=== PATIENT | male | born 1965 | race Caucasian/White ===

== ENCOUNTER 2019-05-29 09:27 | Outpatient (RCR) | payer MEDICAID, SELFPAY | END 2019-05-29 23:59 | disposition home or self-care (01) | LOC: ANHAUDIO 09:27 | DX: Z46.1 Encounter for fitting and adjustment of hearing aid (principal) | CPT/HCPCS: V5264 ==

== ENCOUNTER 2023-01-20 09:47 | Emergency (ER) | payer OTHER, SELFPAY ==
[2023-01-20] VITALS (14 sets, daily range): BP systolic 107–125; BP diastolic 74–89; PULSE 70–81; RESP 10–20; TEMP 36.9; O2SAT 98–100
--- NOTE | ~2023-01-20 | XR_ITS ---
EXAMINATION: XR chest 1V portable DATE: 01/20/2023 12:03 INDICATION: Weakness. Low blood pressure. Recent fall. TECHNIQUE: frontal view of the chest was obtained. COMPARISON: None FINDINGS: The lungs are clear with no focal airspace opacities, pulmonary edema, pleural effusion or pneumothor ax. The cardiomediastinal silhouette is normal. Likely old healed proximal left humeral fracture. IMPRESSION: 1. No acute cardiopulmonary disease. Reviewed, dictated and finalized at location A.
--- NOTE | ~2023-01-20 | XR_ITS ---
EXAMINATION: XR elbow LT min 3V DATE: 01/20/2023 12:48 INDICATION: Left elbow pain post fall TECHNIQUE: Anteroposterior, two oblique and lateral views of the left elbow were obtained. COMPARISON: None. FINDINGS: Alignment is normal. No fracture or joint effusion. Joint spaces are normal. Suggestion of at least s mall left elbow joint effusion with displacement of the anterior but not the posterior fat pad. Soft tissue swelling posterior to the elbow. IMPRESSION: 1. Small left elbow joint effusion without evident osseous abnormality. Reviewed, dictated and finalized at location A.
--- NOTE | ~2023-01-20 | CT_ITS ---
EXAMINATION: CT lumbar spine wo con DATE: 01/20/2023 12:35 INDICATION: Low back pain and weakness post recent falls TECHNIQUE: Computed tomography (CT) of the lumbar spine was performed without intravenous contrast. A utomated exposure control and iterative reconstruction technique were employed. The dose-length produ ct was 922.11 mGy-cm. COMPARISON: None FINDINGS: Alignment is normal. There is a burst fracture of L2 with depression of the superior endplate resulti ng in one fourth central vertebral body height loss and with 2 mm retropulsion along the cephalad asp ect of the posterior wall. There is no linear lucency or sclerosis, discontiguous or sharply angulate d cortex or surrounding soft tissue swelling to suggest acute injury. And minimal likely physiologic anterior wedging at T12. Mild disc height loss at L3-L4 and L4-L5. There are disc bulges resulting in mild central canal stenosis at L4-L5 and L5-S1. Additional mild central canal stenosis resulting fro m the retropulsion of the cephalad aspect of L2. Additional mild disc bulges without central canal st enosis at L2-L3 and L3-L4. Multilevel bilateral mild facet osteoarthritis throughout the lumbar and v isualized lower thoracic spine. This contributes to mild neural foraminal stenosis on the left at L1- L2 and bilaterally at the more caudal lumbar levels. Prominent distention of the incompletely visuali zed bladder which extends cephalad to at least the L4 level. Paravertebral soft tissues are unremarka ble. IMPRESSION: 1. Mild lumbar spondylosis with chronic appearing L2 burst fracture. No evident acute osseous abnorma lity. 2. Prominent distention of the incompletely visualized bladder. Reviewed, dictated and finalized at location A. IMPRESSION: 1. Mild lumbar spondylosis with chronic appearing L2 burst fracture. No evident acute osseous abnormality. 2. Prominent distention of the incompletely visualized bladder.
--- NOTE | ~2023-01-20 | CT_ITS ---
EXAMINATION: CT brain wo con DATE: 01/20/2023 12:35 INDICATION: Fall presenting with generalized weakness TECHNIQUE: Computed tomography (CT) of the head was performed without intravenous contrast. Sagittal and coronal reconstructions were performed. The mA was adjusted according to patient size. Iterative reconstruction technique was employed. The dose-length product was 681.00 mGy-cm. COMPARISON: None FINDINGS: No fracture. No acute intracranial hemorrhage, acute infarction or abnormal extra axial fluid collect ion. There is minimal scattered white matter hypoattenuation consistent with chronic small vessel isc hemic disease. Symmetric prominence of the sulci consistent with mild age-appropriate diffuse cerebra l volume loss. Ventricles are normal and symmetric. No mass/mass effect. The orbits, paranasal sinuse s and mastoid air cells are normal. IMPRESSION: 1. No fracture or acute intracranial process. 2. Age-related changes including mild diffuse volume loss and minimal scattered white matter hypoatte nuation consistent with chronic small vessel ischemic disease. Reviewed, dictated and finalized at location A. IMPRESSION: 1. No fracture or acute intracranial process. 2. Age-related changes including mild diffuse volume loss and minimal scattered white matter hypoattenuation consistent with chronic small vessel ischemic dis ease.
--- NOTE | 2023-01-20 10:00 | ECG_ITS ---
Measurements Intervals Harris Rate: 79 P: 63 VT: 151 QRS: 31 QRSD: 86 T: 62 QT: 370 QTc: 426 Interpretive Statements SINUS RHYTHM NORMAL ECG NO PREVIOUS ECG AVAILABLE FOR COMPARISON Electronically Signed On 01-20-2023 11:49:22 CDT by Hermiol Bahena D.O.
[2023-01-20 10:33] LABS: Basophils Percent Auto 0.2 % (0.2-1.2); Eosinophils Percent Auto 0.4 % (0-4.4); Hematocrit 35.8 % (42.0-52.0); Hemoglobin 11.9 g/dL (14.0-18.0); Immature Granulocyte Absolute 0.02 K/mm3 (0.00-0.031); Immature Granulocyte Percent A 0.2 % (0-0.5); Lymphocytes Absolute Auto 1.37 K/mm3 (0.9-3.2); Lymphocytes Percent Auto 16.9 % (18.3-44.2); Mean Corpuscular HGB Conc 33.2 g/dl (32-36); Mean Corpuscular Hemoglobin 32.8 pg (26-34); Mean Corpuscular Volume 98.6 fl (80-100); Mean Platelet Volume 9.5 fl (7.4-10.4); Monocytes Percent Auto 11.9 % (2.6-8.5); Neutrophils Absolute Auto 5.7 K/mm3 (1.3-6.7); Neutrophils Percent Auto 70.4 % (45.5-73.1); Platelet Count Result 166 k/mm3 (150-375); Red Blood Count 3.63 M/mm3 (4.6-6.20); Red Cell Distribution Width 14.3 % (11.5-14.5); White Blood Count 8.1 K/mm3 (4.5-10.0)
[2023-01-20 10:46] LABS: Alanine Aminotransferase 23 U/L (6-50); Albumin Level 3.8 g/dL (3.5-5.1); Alkaline Phosphatase 56 U/L (38-126); Anion Gap 1 mmol/L (8-16); Aspartate Amino Transferase 29 U/L (17-59); Bilirubin,Total 0.4 mg/dL (0.2-1.3); Blood Urea Nitrogen 16 mg/dL (9-20); Calcium 9.3 mg/dL (8.4-10.2); Carbon Dioxide 33 mmol/L (22-30); Chloride 95 mmol/L (98-107); Estimated CRCL calculation 82 ml/min; Estimated Glomerular Filt Rate > 60; Glucose 71 mg/dL (65-110); Potassium 4.6 mmol/L (3.4-5.0); Sodium 129 mmol/L (137-145)
--- NOTE | 2023-01-20 11:24 | PC.NURSE ---
pt has a fluid restriction of 1500ml a day
--- NOTE | 2023-01-20 11:58 | ED.WEAKNESS ---
HPI - Weakness General Chief complaint: Weakness Stated complaint: WEAKNESS, LOW BP Time Seen by Provider: 01/20/23 11:57 Source: patient and EMS Mode of arrival: EMS Limitations: no limitations History of Present Illness HPI Narrative: 57 years old white male came from shelter by ambulance complaining of left elbow, lower back and occipital pain after a fall at 2 AM. Patient denied loss of consciousness, fever, chills, nausea, vomiting, abdominal pain or urinary symptoms. Currently his main complaint is left elbow pain. Related Data Allergies Allergy/AdvReac Type Severity Reaction Status Date / Time Penicillins Allergy Unknown Verified 04/11/16 16:09 Review of Systems Review of Systems: All systems reviewed & are unremarkable except as noted in HPI and below Exam Narrative: General appearance: Well-developed, well-nourished Skin: Normal color Head: Normocephalic, nontraumatic Eyes: Clear conjunctiva ENT: Oropharynx normal, ears normal, nose normal Neck: Supple, nontender Chest and respiratory: Airway patent, no respiratory distress, no accessory muscle use Heart: Regular rate/rhythm Abdomen: Soft, nontender, no organomegaly, quiet bowel sounds Vascular: Normal peripheral pulses, normal capillary refill. Musculoskeletal: Diffuse tenderness left elbow, swelling, limited range of motion, diffuse tenderness across lumbar area, no bruises or swelling or rash Neurologic: Alert and oriented to his name and age only Course Vital Signs Vital signs: Vital Signs Temperature 36.9 C 01/20/23 09:51 Pulse Rate 81 01/20/23 09:51 Respiratory Rate 16 01/20/23 09:51 Blood Pressure 108/74 01/20/23 09:51 Pulse Oximetry 99 01/20/23 09:51 Temperature 36.9 C 01/20/23 09:51 Pulse Rate 71 01/20/23 14:02 Respiratory Rate 16 01/20/23 14:02 Blood Pressure 125/89 01/20/23 14:02 Pulse Oximetry 100 01/20/23 14:02 MDM - Weakness Lab Data 01/20/23 10:29 01/20/23 10:29 Labs: Lab Results 01/20/23 01/20/23 01/20/23 Range/Units 10:29 13:00 13:05 WBC 8.1 (4.5-10.0) K/mm3 RBC 3.63 L (4.6-6.20) M/mm3 Hgb 11.9 L (14.0-18.0) g/dL Hct 35.8 L (42.0-52.0) % MCV 98.6 (80-100) fl MCH 32.8 (26-34) pg MCHC 33.2 (32-36) g/dl RDW 14.3 (11.5-14.5) % Plt Count 166 (150-375) k/mm3 MPV 9.5 (7.4-10.4) fl Immature Gran % (Auto) 0.2 (0-0.5) % Neut % (Auto) 70.4 (45.5-73.1) % Lymph % (Auto) 16.9 L (18.3-44.2) % Atkinson % (Auto) 11.9 H (2.6-8.5) % Eos % (Auto) 0.4 (0-4.4) % Baso % (Auto) 0.2 (0.2-1.2) % Lymph # (Auto) 1.37 (0.9-3.2) K/mm3 Atkinson # (Auto) 1.0 H (0.1-0.6) K/mm3 Eos # (Auto) 0.0 (0-0.3) K/mm3 Baso # (Auto) 0.0 (0.0-0.1) K/mm3 Abs Immat Gran (auto) 0.02 (0.00-0.031) K/mm3 Absolute Neuts (auto) 5.7 (1.3-6.7) K/mm3 Absolute Nucleated RBC 0.0 (0.0-0.012) K/mm3 Nucleated RBC % 0.0 (0.0-0.2) % PT 14.0 (11.1-14.7) Seconds INR 1.0 APTT 29.5 (22.3-36.8) SECONDS Sodium 129 L (137-145) mmol/L Potassium 4.6 (3.4-5.0) mmol/L Chloride 95 L (98-107) mmol/L Carbon Dioxide 33 H (22-30) mmol/L Anion Gap 1 L (8-16) mmol/L BUN 16 (9-20) mg/dL Creatinine 0.90 (0.7-1.3) mg/dL Estim Creat Clear Calc 82 ml/min Estimated GFR > 60 (59 - ) Glucose 71 (65-110) mg/dL Calcium 9.3 (8.4-10.2) mg/dL Total Bilirubin 0.4 (0.2-1.3) mg/dL AST 29 (17-59) U/L ALT 23 (6-50) U/L Alkaline Phosphatase 56 (38-126) U/L C-Reactive Protein < 0.5 (<1.0) mg/dL Total Protein 6.0 L (6.3-8.2) g/dL Albumin 3.8 (3.5-5.1
[2023-01-20 12:22] LABS: CRP < 0.5 mg/dL (<1.0)
[2023-01-20 13:14] LABS: Appearance Urine Clear (Clear); Bilirubin Urine Negative (Negative); Blood Urine Negative (Negative); Color Urine Yellow (Yellow); Glucose Urine UA Negative (Negative); Ketones Urine Negative (Negative); Leukocyte Esterase Ur Negative LEU/UL (Negative); Nitrate Urine Negative (Negative); Protein Urine Negative (Negative); Specific Grav Ur 1.013 (1.001-1.035)
[2023-01-20 13:18] LABS: Partial Thromboplastin Time 29.5 SECONDS (22.3-36.8)
[2023-01-20 13:34] LABS: Add Urine Microscopic? NO
[2023-01-20] MEDS: ACETAMINOPHEN 500 MG TABLET 1000 MG PO (13:36)
== END 2023-01-20 14:42 | disposition home or self-care (01) ==
PROVIDERS: Emergency Provider Emergency Medicine
DX: S50.02XA Contusion of left elbow, initial encounter (principal); E87.1 Hypo-osmolality and hyponatremia; M47.816 Spondylosis without myelopathy or radiculopathy, lumbar region; R93.41 Abnormal radiologic findings on diagnostic imaging of renal pelvis, ureter, or bladder; W19.XXXA Unspecified fall, initial encounter
CPT/HCPCS: 36415; 70450; 71045; 72131; 73080; 80053; 81003; 85025; 85610; 85730; 86140; 93005; 99284; A9270

== ENCOUNTER 2023-05-26 13:15 | Emergency (ER) | payer OTHER, SELFPAY ==
--- NOTE | ~2023-05-26 | XR_ITS ---
EXAMINATION: XR knee LT 3V DATE: 05/26/2023 13:39 INDICATION: Anterior left knee pain. Fall. TECHNIQUE: 3 views of left knee were obtained. COMPARISON: None. FINDINGS: Bone alignment is normal. No fracture. There is mild osteoarthritis of lateral compartment characterized by tiny osteophytes. There is a small knee joint effusion. IMPRESSION: 1. Mild left knee osteoarthritis. 2. Small left knee joint effusion. Reviewed, dictated and finalized at location A. WIRER
[2023-05-26 13:38] VITALS: BP 109/75; PULSE 93; RESP 16; TEMP 36.1; O2SAT 100
[2023-05-26 13:42] VITALS: BP 109/75; PULSE 93; RESP 16; TEMP 36.1; O2SAT 100
--- NOTE | 2023-05-26 13:51 | ED.LOWEXIN ---
HPI - Extremity Injury (Lower) General Chief Complaint: Extremity Injury, Lower Stated Complaint: Knee pain Time Seen by Provider: 05/26/23 13:43 Source: patient and other (prison staff) Mode of arrival: wheelchair Limitations: no limitations History of Present Illness HPI Narrative: Patient is present today complaining of left knee pain. He tripped last night at his prison, injuring his knee. It has been very painful for him to ambulate since that time. Currently rates his pain 5/10. He has an abrasion to the knee and is up-to-date on his tetanus vaccine. Denies numbness or tingling. Related Data Home Medications Medication Instructions Recorded Confirmed benztropine 0.5 mg tablet 0.5 mg PO TID 05/26/23 05/26/23 bimatoprost 0.01 % eye drops 1 drp EACH EYE HS 05/26/23 05/26/23 (Lumigan) calcium carbonate 600 mg calcium 600 mg PO BID 05/26/23 05/26/23 (1,500 mg) tablet cholecalciferol (vitamin D3) 25 25 mcg PO DAILY 05/26/23 05/26/23 mcg (1,000 unit) tablet divalproex 500 mg tablet,extended 500 mg PO BID 05/26/23 05/26/23 release 24 hr folic acid 1 mg tablet 1 mg PO DAILY 05/26/23 05/26/23 hydroxyzine pamoate 50 mg capsule 50 mg PO TID 05/26/23 05/26/23 loratadine 10 mg tablet 10 mg PO DAILY 05/26/23 05/26/23 lurasidone 120 mg tablet 120 mg PO DAILY 05/26/23 05/26/23 sodium chloride 1,000 mg soluble 1,000 mg PO BID 05/26/23 05/26/23 tablet venlafaxine 150 mg 150 mg PO DAILY 05/26/23 05/26/23 capsule,extended release 24 hr Allergies Allergy/AdvReac Type Severity Reaction Status Date / Time Penicillins Allergy Unknown Unknown Verified 05/26/23 13:36 Review of Systems Review of Systems: CONSTITUTIONAL: Denies body aches, fever, chills, or sweats. EYES: Denies visual changes, redness, or discharge. ENT: Denies rhinorrhea, congestion, sore throat, or otalgia. CARDIOVASCULAR: Denies chest pain, palpitations, or edema. RESPIRATORY: Denies cough or dyspnea. GASTROINTESTINAL: Denies abdominal pain, nausea, vomiting, or diarrhea. GENITOURINARY: Denies dysuria or hematuria. SKIN: Denies rash, itching, or wounds. MUSCULOSKELETAL: Denies back pain, or myalgia.+ knee pain NEUROLOGIC: Denies headache, numbness, tingling, or weakness. PSYCH: Denies depression or anxiety. [facility] Past Medical History Medical History (Updated 05/26/23 @ 14:03 by Chelo Gibbs, SENIOR BUSINESS PROCESS ANALYST, ) Autism spectrum disorder Bipolar 1 disorder Comments At time of signature, I have reviewed and agree with nursing past medical, surgical, social and family history unless otherwise noted. Please see nursing chart for further information. There is no relevant family history pertinent to the presenting complaint Exam Narrative: GENERAL: Well-appearing, well-nourished, and in no acute distress. HEAD: Normocephalic, atraumatic. EYES: EOMI. No redness or drainage. Conjunctivae normal. ENT: Mucous membranes pink and moist. NECK: Normal AROM. CHEST: No respiratory distress. EXTREMITIES: Left knee:Mild tenderness medially, otherwise nontender. No edema noted. No abnormal movement of patella. No tenderness to the patellar tendon. Small superficial abrasion just below the patella. No pain with passive range of motion. Distal sensation intact. Capillary refill normal. SKIN: Warm, dry, no rash. Capillary refill normal. Normal skin turgor. NEURO: No focal deficits. Alert and oriented x3. Gait steady. PSYCH: Normal affect. No signs of depression or anxiety. Course Course Level of Care: Express Care Visit Vital Signs Vital signs: Vital Signs Temperature 97 F L 05/26/23 13:38 Pulse Rate 93 05/26/23 13:38 Respiratory Rate 16 05/26/23 13:38 Blood Pressure 109/75 05/26/23 13:38 Pulse Oximetry 100 05/26/23 13:38 Temperature 97 F L 05/26/23 13:42 Pulse Rate 93 05/26/23 13:42 Respiratory Rate 16 05/26/23 13:42 Blood Pressure 109/75 05/26/23 13:42 Pulse Oximetry 100 05/26/23 13:
== END 2023-05-26 14:11 | disposition home or self-care (01) ==
PROVIDERS: Emergency Provider Nurse Practitioner
DX: S80.02XA Contusion of left knee, initial encounter (principal); S80.212A Abrasion, left knee, initial encounter; W01.0XXA Fall on same level from slipping, tripping and stumbling without subsequent striking against object, initial encounter; F84.0 Autistic disorder; F31.9 Bipolar disorder, unspecified
CPT/HCPCS: 73562; 99213; G0463

== ENCOUNTER 2023-06-20 10:22 | Emergency (ER) | payer OTHER, SELFPAY ==
--- NOTE | ~2023-06-20 | US_ITS ---
EXAMINATION: US venous doppler [facility] DATE: 06/20/2023 11:30 INDICATION: Left lower limb pain TECHNIQUE: Grayscale ultrasound images without and with compression and Doppler ultrasound images of the left lower extremity veins were obtained. COMPARISON: None. FINDINGS: The visualized portions of left common femoral vein, profunda (deep) femoral vein, femoral vein, popl iteal vein, peroneal veins, posterior tibial veins, gastrocnemius vein and greater saphenous vein out flow are patent. IMPRESSION: 1. No deep venous thrombosis in the left lower limb. Reviewed, dictated and finalized at location A. TENA[employer]PER[employer]OR
[2023-06-20 10:39] VITALS: BP 121/75; PULSE 92; RESP 18; TEMP 36.4; O2SAT 100
--- NOTE | 2023-06-20 11:57 | ED.GENADULT ---
HPI - General Adult General Chief complaint: Extremity Problem,Nontraumatic Stated complaint: LEFT CALF PAIN Time Seen by Provider: 06/20/23 11:13 Source: patient Mode of arrival: EMS Limitations: no limitations History of Present Illness HPI narrative: This is a 57-year-old male with bipolar 1, ASD who presents to the ED with chief complaint of left knee pain x3 weeks and worse starting last night. He is here with caregiver from the [place] [facility]. They report he had a fall 3 weeks ago and has been dealing with the pain ever since. Room what changed last night is that he was unable to bear weight or walk due to the pain. Patient states range of motion and weight-bearing worsen the pain. Denies any new injuries or falls. Denies any fevers, chills, nausea, vomiting, skin changes. Related Data Home Medications Medication Instructions Recorded Confirmed benztropine 0.5 mg tablet 0.5 mg PO TID 05/26/23 05/26/23 bimatoprost 0.01 % eye drops 1 drp EACH EYE HS 05/26/23 05/26/23 (Lumigan) calcium carbonate 600 mg calcium 600 mg PO BID 05/26/23 05/26/23 (1,500 mg) tablet cholecalciferol (vitamin D3) 25 25 mcg PO DAILY 05/26/23 05/26/23 mcg (1,000 unit) tablet divalproex 500 mg tablet,extended 500 mg PO BID 05/26/23 05/26/23 release 24 hr folic acid 1 mg tablet 1 mg PO DAILY 05/26/23 05/26/23 hydroxyzine pamoate 50 mg capsule 50 mg PO TID 05/26/23 05/26/23 loratadine 10 mg tablet 10 mg PO DAILY 05/26/23 05/26/23 lurasidone 120 mg tablet 120 mg PO DAILY 05/26/23 05/26/23 sodium chloride 1,000 mg soluble 1,000 mg PO BID 05/26/23 05/26/23 tablet venlafaxine 150 mg 150 mg PO DAILY 05/26/23 05/26/23 capsule,extended release 24 hr Allergies Allergy/AdvReac Type Severity Reaction Status Date / Time Penicillins Allergy Unknown Unknown Verified 05/26/23 13:36 Review of Systems Review of Systems: All systems as dictated in [facility] Past Medical History Medical History (Updated 06/20/23 @ 12:06 by Giovanny Alcantara PA-C) Autism spectrum disorder Bipolar 1 disorder Exam Narrative: GENERAL: Well-appearing, well-nourished, and in no acute distress. HEAD: Normocephalic, atraumatic. EYES: PERRLA and EOMI. ENT: Nares clear, no rhinorrhea or epistaxis. Mucous membranes moist. Oropharynx without tonsillar hypertrophy exudate or other lesions. NECK: Supple. No adenopathy or masses. CHEST: No respiratory distress. Clear to auscultation. No wheezes rales or rhonchi HEART: Regular rate and rhythm. No murmur heard. Normal peripheral pulses. ABDOMEN: Soft, nontender, nondistended, normal active bowel sounds. MSK: LLE: Effusion to the left knee. No warmth, erythema. Mild tenderness about the knee joint. Decreased active range of motion due to pain. He is able to extend the knee. Neurovascularly intact distally. No bruising. RLE: Benign SKIN: Warm, dry, no rash. NEURO: Alert and oriented x3. No focal deficits. PSYCH: Normal mood and affect. Course Course Emergency Course: Patient was still having trouble bearing weight and caregiver stated that he cannot go back to the [place] [facility] as he would have to go upstairs. They do not do lift assists there. Vital Signs Vital signs: Vital Signs Temperature 97.6 F 06/20/23 10:39 Pulse Rate 92 06/20/23 10:39 Respiratory Rate 18 06/20/23 10:39 Blood Pressure 121/75 06/20/23 10:39 Pulse Oximetry 100 06/20/23 10:39 Oxygen Delivery Room Air 06/20/23 10:39 Temperature 98.2 F 06/20/23 16:37 Pulse Rate 87 06/20/23 16:37 Respiratory Rate 18 06/20/23 16:37 Blood Pressure 144/79 H 06/20/23 16:37 Pulse Oximetry 98 06/20/23 16:37 Oxygen Delivery Room Air 06/20/23 10:39 Medical Decision Making [facility] Narrative Medical decision making narrative: This is a 57-year-old male who presents to the ED with chief complaint of left knee and thigh pain for the past 3 weeks and worse last night. Vitals are normal. Exam shows left knee
[2023-06-20] MEDS: KETOROLAC 30 MG/ML VIAL (*BKC) IM (12:00)
--- NOTE | 2023-06-20 12:13 | PC.NURSE ---
Upon getting ready to dc patient, RN from [facility] where patient resides, called and stated that patient cannot come back to facility if he is unable to stand and ambulate ad qian. The facility is a non weight bearing facility. KINZA Germain, notified and call placed to care coordination for f/u.
[2023-06-20] MEDS: ACETAMINOPHEN 500 MG TABLET 1000 MG PO (15:50)
--- NOTE | 2023-06-20 16:12 | PCCCNOTE ---
CC called to ED for placement for pt. Pt lives in a senior care, had a fall a few weeks ago and hurt his knee. There is no fractures or acute findings other than arthritis. Pt is unable to bare weight, so placement has to be made for PT. He is unable to stay at the senior care unless he can care for himself and do his ADL's. Referrals [facility] to [facility], per pt choice. [facility] accepted pt, he will be transported there via his care givers vehicle. His RN will call report to [phone] and fax any discharge information to [phone].
[2023-06-20 16:37] VITALS: BP 144/79; PULSE 87; RESP 18; TEMP 36.8; O2SAT 98
--- NOTE | 2023-06-20 17:33 | PC.NURSE ---
Damaris nurse, from [facility] called for report at [phone].
== END 2023-06-20 16:41 | disposition home or self-care (01) ==
PROVIDERS: Emergency Provider Physician Assistant
DX: M25.462 Effusion, left knee (principal); M79.652 Pain in left thigh; F84.0 Autistic disorder; F31.9 Bipolar disorder, unspecified; W19.XXXA Unspecified fall, initial encounter
CPT/HCPCS: 93971; 96372; 99284; A9270; J1885

== ENCOUNTER 2024-11-26 10:57 | Inpatient (IN) | payer OTHER, SELFPAY ==
--- NOTE | ~2024-11-26 | CT_ITS ---
EXAMINATION: CT cervical spine wo con DATE: 11/26/2024 11:42 INDICATION: Fall with head injury TECHNIQUE: Computed tomography (CT) of the cervical spine was performed without intravenous contrast. Automated exposure control and iterative reconstruction technique were employed. The dose-length pro duct was 204.63 mGy-cm. COMPARISON: None FINDINGS: Alignment is normal. Mild osteoarthritis at the atlantoaxial articulation. Cervical vertebral body he ights are normal. There is chronic appearing mild anterior wedging with 20% anterior vertebral body h eight loss at T2. Mild disc height loss at C3-C4. No central canal stenosis. Multilevel mild cervical facet and uncovertebral osteoarthritis. No central canal or neural foraminal stenosis. Atherosclerot ic calcifications at the bilateral carotid bulbs. Cervical soft tissues are unremarkable. Mild emphys lacie and mild pleural parenchymal scarring at the bilateral apices. IMPRESSION: 1. Mild cervical spondylosis and chronic appearing mild T2 compression fracture. No acute osseous abn ormality. Reviewed, dictated and finalized at location A. IMPRESSION: 1. Mild cervical spondylosis and chronic appearing mild T2 compression fracture . No acute osseous abnormality.
--- NOTE | ~2024-11-26 | XR_ITS ---
XR surgery orthopedic Ordering provider: Tyron Hancock MD History: . LEFT HIP PINNING . Comparison: None. FINDINGS/impression: Postoperative changes with 3 screws seen in the left femoral neck. Fluoroscopy time is 1.18 minutes. Cumulative radiation dose is 15.48mGy. Reviewed, dictated and finalized at location A.
--- NOTE | ~2024-11-26 | XR_ITS ---
XR chest 1V Ordering provider: Hyun Mcgovern APRN History: 59 years Male with . fall . Comparison: January 20, 2023 FINDINGS: MEDIASTINUM: The cardiac silhouette is not enlarged. LUNGS: No infiltrates, effusions or pneumothorax. Underlying emphysematous changes. OTHER: No free air under the diaphragm. IMPRESSION: No acute cardiopulmonary pathology. Reviewed, dictated and finalized at location A.
--- NOTE | ~2024-11-26 | CT_ITS ---
CT brain wo con Ordering provider: Hyun Mcgovern APRN History: 59 years Male with . fall . Comparison: None. Technique: CT of the head without contrast. Radiation reduction technique utilized. The dose-length product was 1210.67 mGy-cm. FINDINGS: BRAIN PARENCHYMA AND CSF SPACES: Mild leukoaraiosis and diffuse cortical atrophy. Mild atheromatous d isease. No midline shift, mass effect or hemorrhage. The brain parenchyma and CSF spaces are otherwi se normal. Empty sella turcica. VISUALIZED PARANASAL SINUSES: Well aerated. MASTOIDS: Well aerated. BONES: The bones appear intact. SOFT TISSUES: Visualized nasopharynx is normal. Superficial soft tissues are normal. IMPRESSION: No acute intracranial findings. Reviewed, dictated and finalized at location A.
--- NOTE | ~2024-11-26 | XR_ITS ---
EXAMINATION: XR hip LT 2V w AP pelvis DATE: 11/26/2024 12:17 INDICATION: Left hip pain TECHNIQUE: Anteroposterior view of the pelvis and anteroposterior and cross-table lateral views of th e left hip were obtained. COMPARISON: None. FINDINGS: Nondisplaced transcervical fracture of the proximal left femur. Suggestion of some mild posterior imp action. No other fractures identified. Mild osteoarthritis at the bilateral sacroiliac joints. Bilate ral hip joint spaces appear relatively preserved. Mild lumbar spondylosis. IMPRESSION: 1. Nondisplaced transcervical fracture of the proximal left femur. Reviewed, dictated and finalized at location A.
--- OUTSIDE RECORDS SUMMARY | 2024-11-26 11:00 | XMS_ITS | Clinical Summary ---
Author Organization [facility] Address [address] [facility], [address] [phone] Phone Care Team Providers Care Realtime Captioner Name Role Phone Nicko Nance DO Unavailable [phone] Linda Auguste [employer], [employer] Unavailable Juanita Estrada [employer], [employer] Unavailable Rohit Watson Primary Care Provider Allergies Active Allergy Reactions Criticality Noted Date Comments Penicillins Unknown Medications divalproex (DEPAKOTE ER) 500 MG TABLET SR 24 HR Take 500 mg by mouth 2 times daily. 08/24/19 16 Active latanoprost (XALATAN) 0.005 % Solution Place 1 Drop in both eyes nightly. 08/14/19 16 Active risperiDONE (RISPERDAL) 4 MG Tablet Take 4 mg by mouth 2 times daily. 08/24/19 16 Active Venlafaxine HCl XR (EFFEXOR-XR) 150 MG TABLET SR 24 HR Take 150 mg by mouth daily. 08/24/19 16 Active loratadine (CLARITIN) 10 MG Tablet Take 1 Tab by mouth daily. 90 Tab 3 11/11/19 17 Active folic acid (FOLVITE) 1 MG Tablet Take 1 Tab by mouth daily. 30 Tab 5 12/23/19 17 Active hydrOXYzine (ATARAX) 50 MG Tablet Take 50 mg by mouth 3 times daily. Active Cholecalciferol (VITAMIN D3) 1000 UNIT Tablet Take 1,000 Units by mouth daily. Active benztropine (COGENTIN) 0.5 MG Tablet Take 0.5 mg by mouth 3 times daily. Active Oral Electrolytes (GNP Electrolyte Powder) PackIndications: Hyponatremia Take 1 Packet by mouth in the morning and at bedtime. 60 Each 3 01/13/20 23 Active sodium chloride 1 GM TabletIndication s:Hyponatremia Take 1 Tablet by mouth in the morning and at bedtime. 180 Tablet 1 03/11/20 23 Active Lumigan 0.01 % Solution 04/26/20 Active Calcium Carbonate 1500 (600 Ca) MG Tablet 04/02/20 23 Active docusate sodium (COLACE) 100 MG CapsuleIndicatio ns:Constipation, unspecified constipation type Take 1 Capsule by mouth 2 times daily. 180 Capsule 06/20/19 Active zoster vaccine recombinant adjuvanated (SHINGRIX) 50 MCG/0.5ML Recon SuspensionIndica tions:Encounter for immunization 0.5 mL by Intramuscular route once for 1 dose. 0.5 mL 11/02/19 25 025 Active Problems Problem Noted Date Diagnosed Date Chronic hyponatremia 03/31/2021 Vitamin D deficiency 09/25/2018 Vitamin B12 deficiency 09/25/2018 Depression 09/23/2017 Tobacco use disorder 02/17/2017 Chronic mental illness 09/23/2016 Seasonal allergies 09/23/2015 Asperger's disorder Bipolar disorder Resolved Problems Problem Noted Date Diagnosed Date Resolved Date Mixed hyperlipidemia 09/02/2015 018 Encounters Date Type Department Care Team Description 11/01/2024 10:30 AM CDT Office Visit [facility] - Primary Care - [place] [address] [place] [address] Rohit Watson, CONCHA Preventative health care (Adult) (Primary Dx); Chronic hyponatremia; Vitamin D deficiency; Current mild episode of major depressive disorder, unspecified whether recurrent (HCC); Bipolar affective disorder, remission status unspecified (HCC); Screening for prostate cancer; Encounter for immunization; Encounter for lipid screening for cardiovascular disease Discharge Disposition: Discharged to home or Selfcare 11/01/2024 Travel 10/29/2024 Telephone [facility] [address] [place] [phone] Rohit Watson, PAC Request for Records from Last 3 Months Immunizations Immunization Administration Dates Next Due COVID-19, Mrna, Lnp-s, Pf, 5 0 mcg/0.5 mL 04/18/2023 Covid-19, Mrna, Lnp-s, Bival ent, Moderna, 50 Mcg or 25 mcg dose 02/17/2022 Covid-19, Mrna, Lnp-s, PF, 1 00 mcg/0.5 mL Dose (Moderna) 07/16/2020,06/17/2020 Covid-19, Mrna, Lnp-s, Pf, 1 00 Mcg Or 50 Mcg Dose (MODERNA) 11/12/2021 Hepatitis B Vaccine 03/16/2004 Influenza Vaccine 02/02/2016,01/28/2015,02/13/20 13 Influenza Vaccine greater than 3 yrs 01/24/2020, 02/01/2019,01/14/2014 Influenza Vaccine, Quadrivalent, PF 01/15,02/03/2023,01/20/2022,02/08,02/04/2017 Influenza, Seasonal, Injecta ble, Undefined 02/05/2021 PUR PCV-13 09/23/2015 Pneumococcal Vaccine - 13 Valent 09/23/2015 Pneumococcal Vaccine Adult - 23 Valent 2 Pneumococcal conjugate PCV20 , polysaccharide TAV920 conjugate, adjuvant, PF 11/01/2024 TB Skin Test 08/04/2018, 7,07/18/2015,07/18,07/20/2013 TD VACCINE 01/14/2005 TDAP Vaccine 01/04/2017,11/06/2014 Zoster Vaccine Recombinant 07/20/2024 Family History Medical History Relation Name Comments Mental Disorder, Other Mother Diabetes Paternal Grandmother Relation Name Status Comments Mother Paternal Grandmother Social History Tobacco Use Types Packs/Day Years Used Date Smoking Tobacco: Every Day Cigarettes 1 20 Passive Smoke Exposure: Current Smokeless Tobacco: Never Tobacco Cessation:Ready to Q uit: No; Counseling Given: Yes Alcohol Use Standard Drinks/Week Comments No 0 (1 standard drink = 0.6 oz pur e alcohol) Sexually Active Control Partners Comments Never Sex and Gender Information Value Date Recorded Sex Assigned at Not on file Legal Sex Male 11:49 PM CDT Gender Identity Not on file Sexual Orientation Not on file Occupation Industry Job Start Date Job End Date disabled Not on file Not on file Not on file Last Filed Vital Signs Vital Sign Reading Time Taken Comments Blood Pressure 104/60 11/01/2024 10:14 AM CDT Pulse 62 11/01/2024 10:14 AM CDT Temperature 37.6 C (99.6 F) 11/01/2024 10:14 AM CDT Respiratory Rate 20 11/01/2024 10:14 AM CDT Oxygen Saturation 100% 11/01/2024 10:14 AM CDT Inhaled Oxygen Concentration - - Weight 79.8 kg (176 lb) 11/01/2024 10:14 AM CDT Height 175.3 cm (5' 9) 10/27/2023 11:47 AM CDT Body Mass Index 25.99 10/27/2023 11:47 AM CDT Plan of Treatment Upcoming Encounters Date Type Department Care Team (Late st Contact Info) Description 05/03/2025 11:00 AM FINANCE DIRECTOR Office Visit [facility] - Primary Care - [place] [address] [place] [address] Rohit Watson, PAC [address] [place] [address] Health Maintenance Due Date Last Done Comments Cologuard 2010 Immunochemical Fecal Occult Blood 2010 Zoster Immunization (2 of 2) 09/14/2024 07/20/2024 Lung Cancer Screening 11/23/2024 11/24/2023, 021 Influenza Immunization (#1) 01/14/202501/15, 02/03/2023, 01/20/2022, Additional history exists Colonoscopy 11/13/2025 11/14/2015 Colorectal Cancer Screening 11/13/2025 Td Immunization Every 10 Years (Adults With 1 Tdap) 01/04/2027 01/04/2017, 11/06/2014, 01/14/2005 Respiratory Syncytial Virus (RSV) Immunization (Adult) (1 - 1-dose 75+ series) 2040 Hepatitis B Immunization Discontinued 03/16/2004 PSA Discussion Completed 09/23/2020, 09/13, 07/21/2018, Additional history exists Hepatitis C Virus (HCV) Screening Completed 04/30/2022 SARS-COV-2 Immunization Discontinued 04/18/20 23, 02/17/2022, 11/12/2021, Additional history exists Pneumococcal Immunization (50+ years) Completed 11/01/2024, 09/23/2015, 09/23/2015, Additional history exists Pneumococcal Immunization Combined Discontinued 11/01/2024, 09/23/2015, 09/23/2015, Additional history exists Human Papillomavirus (HPV) Immunization Aged Out No longer eligible based on patient's age to complete this topic Meningococcal Immunization (ACWY) Aged Out No longer eligible based on patient's age to complete this topic Rotavirus Immunization Aged Out No lo nger eligible based on patient's age to complete this topic Procedures Procedure Name Priority Date/Time Associated Diagnosis Comments CT CHEST SCREENING WO Routine 11/24/2023 1:14 PM CDT Encounter for screening for lung cancer HEPATITIS C ANTIBODY Today 04/30/2022 9:37 AM FINANCE DIRECTOR Need for hepatitis C screening test PSA SCREEN Routine 09/23/2020 8:04 AM CDT Bipolar affective disorder, remission status unspecified (HCC) Screening for malignant neoplasm of prostate from Last 3 Months or Most Recently Relevant to Health Maintenance Results * CT CHEST SCREENING WO (11/24/2023 1:14 PM CDT) Anatomical Region Laterality Modality Chest N/A Computed Tomogra phy 11/25/2023 4:51 PM CDT Impressions 11/25/2023 4:54 PM CDT IMPRESSION: Ground-glass nodule in the left lower lobe has resolved. No new or suspicious pulmonary nodule. Lung-RADS category 1: Negative. Recommendation: Low dose Screening CT of chest in 12 months. Narrative 11/25/2023 4:54 PM CDT EXAM DESCRIPTION: CT CHEST SCREENING WO REASON FOR STUDY: Screening CT of the chest in a current smoker with a 82 pack year smoking history. Additional history: None. TECHNIQUE: Low dose CT scan of the chest was performed without intravenous contrast using helical scanning technique. The exam extends from the lung apices through the lung bases. Automatic exposure control was used as a dose optimization technique. NOTE: This study was performed for the specific purposes of lung cancer screening and is not an alternative to diagnostic chest CT. RADIATION DOSE: CT dose index volume (CTDIvol) = 3.62 mGy COMPARISON: CT chest 04/21/2021 FINDINGS: SMOKING RELATED LUNG DISEASE: Mild emphysema. LUNG NODULES: Previously seen ground-glass nodularity left lower lobe has resolved. No new suspicious pulmonary nodule. CORONARY ARTERY CALCIFICATION: Present OTHER: No focal consolidation, pleural effusion or pneumothorax. Normal-sized heart without pericardial effusion. Normal caliber of the great vessels. Atherosclerotic calcification of the aorta and coronary arteries. No pleural effusion. No thoracic lymphadenopathy. Visualized upper abdomen demonstrates no acute findings. No suspicious osseous findings. THIS IS AN ELECTRONICALLY VERIFIED FINAL REPORT 11/25/2023 4:51 PM - Electronically signed by Jordana Dutta M.D. FT: FT Report ID: [id number] Reading Location: [place] [address] Procedure Note Jordana Ramos MD - 11/25/2023 EXAM DESCRIPTION: CT CHEST SCREENING WO REASON FOR STUDY: Screening CT of the chest in a current smoker with a 82 pack year smoking history. Additional history: None. TECHNIQUE: Low dose CT scan of the chest was performed without intravenous contrast using helical scanning technique. The exam extends from the lung apices through the lung bases. Automatic exposure control was used as a dose optimization technique. NOTE: This study was performed for the specific purposes of lung cancer screening and is not an alternative to diagnostic chest CT. RADIATION DOSE: CT dose index volume (CTDIvol) = 3.62 mGy COMPARISON: CT chest 04/21/2021 FINDINGS: SMOKING RELATED LUNG DISEASE: Mild emphysema. LUNG NODULES: Previously seen ground-glass nodularity left lower lobe has resolved. No new suspicious pulmonary nodule. CORONARY ARTERY CALCIFICATION: Present OTHER: No focal consolidation, pleural effusion or pneumothorax. Normal-sized heart without pericardial effusion. Normal caliber of the great vessels. Atherosclerotic calcification of the aorta and coronary arteries. No pleural effusion. No thoracic lymphadenopathy. Visualized upper abdomen demonstrates no acute findings. No suspicious osseous findings. THIS IS AN ELECTRONICALLY VERIFIED FINAL REPORT 11/25/2023 4:51 PM - Electronically signed by Jordana Dutta M.D. FT: FT Report ID: [id number] Reading Location: [id number] IMPRESSION: Ground-glass nodule in the left lower lobe has resolved. No new or suspicious pulmonary nodule. Lung-RADS category 1: Negative. Recommendation: Low dose Screening CT of chest in 12 months. Rohit Watson [facility] IMG CT ORDERABLES Final Resu lt * HEPATITIS C ANTIBODY (04/30/2022 9:37 AM FINANCE DIRECTOR) hepatitis C antibody 0.07 <1 [facility] [id number] B 04/30/2022 11:21 PM FINANCE DIRECTOR [facility] Comment: Signal/Cutoff ratio < 0.79 is Nondetected Signal/Cutoff ratio 0.80-0.99 is Grayzone Signal/Cutoff ratio > 0.99 is Detected Supplemental assays are recommended if signal/cutoff ratio is >/=1.00. Signal/cutoff ratio result >/= 5.00 is 97% predictive of positivity for recombinant immunoblot assay (RIBA) and will be reported to the [place] Department of Public [facility] as required. Blood Venipuncture / Unknown 04/30/2022 9:37 AM FINANCE DIRECTOR 04/30/2022 9:37 AM FINANCE DIRECTOR Re Escobar MD CHEMISTRY ORDERABLES Final R esult [facility] [address] [place] [address], [place] * PSA SCREEN (09/23/2020 8:04 AM CDT) Pathologist [facility] PSA SCREEN, TOTAL 0.47 <=4.00 ng/mL 09/23/2020 2:01 PM CDT [facility] Blood Venipuncture / Unknown 09/23/2020 8:04 AM CDT 09/23/2020 8:04 AM CDT Narrative [facility] - 09/23/2020 2:01 PM CDT PSA NOTE: The PSA value should be used in conjunction with information available from clinical evaluation and other diagnostic procedures. us Linda Prieto MD CHEMISTRY ORDERABLES Final R esult [facility] [address] [place] [address] from Last 3 Months or Most Recently Relevant to Health Maintenance Insurance MEDICARE C MOLINA Care Teams Realtime Captioner Relationship Specialty Start Date End Date Rohit Watson, CONCHA [address] [facility] [place] [phone] PCP - General Physician Tag Marker 11/22/23 Nicko Nance DO Gastroenterology 11/21/15 Linda Auguste, PILOT, [employer] Nurse Practitioner Advanced Practice Nurse 11/21/15 Juanita Estrada, JEFF, [employer] Nurse Practitioner Advanced Practice Nurse 11/21/15
[2024-11-26 11:08] VITALS: BP 92/61; PULSE 88; RESP 18; TEMP 36.2; O2SAT 99
--- NOTE | 2024-11-26 11:26 | ED_ITS ---
HPI - General Adult General Chief complaint: Fall <Hyun Duvall September, FLIGHT HOSTESS - Last Filed: 11/26/24 15:54> Stated complaint: L hip pain, Fall <Hyun Duvall September, FLIGHT HOSTESS - Last Filed: 11/26/24 15:54> Time Seen by Provider: 11/26/24 11:08 <Hyun Duvall September, FLIGHT HOSTESS - Last Filed: 11/26/24 15:54> History of Present Illness HPI narrative: Santiago De La Cruz this is a 59-year-old male who lives in a nursing facility with past medical history of bipolar and ASD who presents today after a mechanical ground level fall striking the back of his head on the countertop then falling onto his left side. He was having severe pain to the left side of his body and could not get back up so EMS was called to bring him to the emergency department. Patient is alert and oriented x4 complains of pain to the left hip area. Staff that is with pt states he did not have LOC and that just prior to the fall he was doing a marching exercise. <Hyun Duvall September, - Last Filed: 11/26/24 15:54> Related Data Home medications: Home Medications ?Medication ?Instructions ?Recorded ?Confirmed ?Last Taken ?Type benztropine 0.5 mg tablet 0.5 mg PO TID 05/26/23 05/26/23 Unknown History bimatoprost 0.01 % eye drops 1 drp EACH EYE HS 05/26/23 05/26/23 Unknown History (Virgilio) calcium carbonate 600 mg PO BID 05/26/23 05/26/23 Unknown History cholecalciferol (vitamin D3) 25 25 mcg PO DAILY 05/26/23 05/26/23 Unknown History mcg (1,000 unit) tablet divalproex 500 mg tablet,extended 500 mg PO BID 05/26/23 05/26/23 Unknown History release 24 hr folic acid 1 mg tablet 1 mg PO DAILY 05/26/23 05/26/23 Unknown History hydroxyzine pamoate 50 mg capsule 50 mg PO TID 05/26/23 05/26/23 Unknown History loratadine 10 mg tablet 10 mg PO DAILY 05/26/23 05/26/23 Unknown History lurasidone 120 mg tablet 120 mg PO DAILY 05/26/23 05/26/23 Unknown History sodium chloride 1,000 mg soluble 1,000 mg PO BID 05/26/23 05/26/23 Unknown History tablet venlafaxine 150 mg 150 mg PO DAILY 05/26/23 05/26/23 Unknown History capsule,extended release 24 hr <Hyun Mcgovern APRN - Last Filed: 11/26/24 15:54> Allergies/adverse reactions: Allergies Allergy/AdvReac Type Severity Reaction Status Date / Time Penicillins Allergy Unknown Unknown Verified 05/26/23 13:36 <Hyun Mcgovren FLIGHT HOSTESS - Last Filed: 11/26/24 15:54> Review of Systems 2 Review of Systems: All systems reviewed & are unremarkable except as noted in HPI and below <Hyun Mcgovern FLIGHT HOSTESS - Last Filed: 11/26/24 15:54> PMFSH Past Medical History Medical History: Medical History Autism spectrum disorder Bipolar 1 disorder <Hyun Mcgovern FLIGHT HOSTESS - Last Filed: 11/26/24 15:54> Exam 2 Narrative: GENERAL: Well-appearing, well-nourished, and in no acute distress. HEAD: Normocephalic, atraumatic. EYES: PERRLA and EOMI. ENT: Nares clear, no rhinorrhea or epistaxis. Mucous membranes moist. Oropharynx without tonsillar hypertrophy exudate or other lesions. NECK: Supple. No adenopathy or masses. No carotid bruits or JVD CHEST: Clear to auscultation. No respiratory distress. No wheezes rales or rhonchi HEART: Regular rate and rhythm. No murmur heard. Normal peripheral pulses. ABDOMEN: Soft, nontender, nondistended, normal active bowel sounds. EXTREMITIES: Patient does not want his left hip touched, stating this is causing him a lot of pain, waiting for him to be transferred to the stretcher to evaluate his hip SKIN: Warm, dry, no rash. NEURO: No focal deficits. Alert and oriented x3. PSYCH: Normal mood and affect. <Hyun Mcgovern FLIGHT HOSTESS - Last Filed: 11/26/24 15:54> Course FREELANCE PROGRAMMER/APP DEVELOPER/PA Physician Supervision I agree with midlevel documentation; I performed the medical decision making component of this evaluation. <Meenu Erwin MD - Last Filed: 11/26/24 15:56> Vital Signs Vital signs: Vital Signs Temperature 97.2 F L 11/26/24 11:08 Pulse Rate 88 11/26/24 11:08 Respiratory Rate 18 11/26/24 11:08 Blood Pressure 92/61 L 11/26/24 11:08 Pulse Oximetry 99 11/26/24 11:08 Temperature 97.4 F L 11/26/24 13:17 Pulse Rate 72 11/26/24 13:17 Respiratory Rate 16 11/26/24 13:17 Blood Pressure 126/77 11/26/24 13:17 Pulse Oximetry 99 11/26/24 13:17 <Hyun Mcgovern, FLIGHT HOSTESS - Last Filed: 11/26/24 15:54> Vital Signs Temperature 97.2 F L 11/26/24 11:08 Pulse Rate 88 11/26/24 11:08 Respiratory Rate 18 11/26/24 11:08 Blood Pressure 92/61 L 11/26/24 11:08 Pulse Oximetry 99 11/26/24 11:08 Temperature 97.4 F L 11/26/24 13:17 Pulse Rate 72 11/26/24 13:17 Respiratory Rate 16 11/26/24 13:17 Blood Pressure 126/77 11/26/24 13:17 Pulse Oximetry 99 11/26/24 13:17 <Meenu Erwin MD - Last Filed: 11/26/24 15:56> Medical Decision Making MDM Narrative Medical decision making narrative: 59 y/o here after a mechanical ground level fall complaining of left hip pain He did hit his head without LOC, staff from [facility] here and states he also does have a hx of drinking too much water and messes up with his sodium so he is on water restrictions but has been known to sneak water. No obvious evidence of trauma to his head her face the fall no cervical thoracic or lumbar spinal tenderness with palpation complains of left upper leg hip pain, distal pulses present- strong pedal pulses Concern for : brain bleed/ left hip fracture / hyponatremia Plan to check imaging and labs and treat his pain. CBC-leukocytosis 11.8, hemodynamically stable CMP sodium 122, chloride 86, glucose 113 starting NS at 150/hr CT Brain- No acute intracranial findings. CT cspine- 1. Mild cervical spondylosis and chronic appearing mild T2 compression fracture. No acute osseous abnormality. XR chest -No acute cardiopulmonary pathology. XR Left hip/pelvis- 1. Nondisplaced transcervical fracture of the proximal left femur. Consulted with Orthopedic Dr. Hancock who accepts consult for admission to have repair of the proximal femur fracture. Consulted [facility] Hospitalist Tarsha for admission, who accepts admission and will also start NS at 150/hr to help with the hyponatremia <Hyun Mcgovern, FLIGHT HOSTESS - Last Filed: 11/26/24 15:54> Medical Records Medical records reviewed: Yes I reviewed the external patient's medical records. <Hyun Duvall September, FLIGHT HOSTESS - Last Filed: 11/26/24 15:54> Vital Signs Vital Signs: Vital Signs Temperature 97.2 F L 11/26/24 11:08 Pulse Rate 88 11/26/24 11:08 Respiratory Rate 18 11/26/24 11:08 Blood Pressure 92/61 L 11/26/24 11:08 Pulse Oximetry 99 11/26/24 11:08 Temperature 97.4 F L 11/26/24 13:17 Pulse Rate 72 11/26/24 13:17 Respiratory Rate 16 11/26/24 13:17 Blood Pressure 126/77 11/26/24 13:17 Pulse Oximetry 99 11/26/24 13:17 VItals reviewed by me <Hyun Duvall September, FLIGHT HOSTESS - Last Filed: 11/26/24 15:54> Vital Signs Temperature 97.2 F L 11/26/24 11:08 Pulse Rate 88 11/26/24 11:08 Respiratory Rate 18 11/26/24 11:08 Blood Pressure 92/61 L 11/26/24 11:08 Pulse Oximetry 99 11/26/24 11:08 Temperature 97.4 F L 11/26/24 13:17 Pulse Rate 72 11/26/24 13:17 Respiratory Rate 16 11/26/24 13:17 Blood Pressure 126/77 11/26/24 13:17 Pulse Oximetry 99 11/26/24 13:17 <Meenu Erwin MD - Last Filed: 11/26/24 15:56> Lab Data Lab results reviewed: Yes I reviewed the patient's lab results. <Hyun Mcgovern, FLIGHT HOSTESS - Last Filed: 11/26/24 15:54> Result diagrams: 11/26/24 12:30 07/14/25 12:30 <Hyun Mcgovern, FLIGHT HOSTESS - Last Filed: 11/26/24 15:54> Labs: Lab Results 11/26/24 Range/Units 12:30 WBC 11.8 H (4.5-10.0) K/mm3 RBC 3.96 L (4.6-6.20) M/mm3 Hgb 12.6 L (14.0-18.0) g/dL Hct 36.9 L (42.0-52.0) % MCV 93.2 (80-100) fl MCH 31.8 (26-34) pg MCHC 34.1 (32-36) g/dl RDW 13.5 (11.5-14.5) % Plt Count 206 (150-375) k/mm3 MPV 9.5 (7.4-10.4) fl Immature Gran % (Auto) 0.9 H (0-0.5) % Neut % (Auto) 75.8 H (45.5-73.1) % Lymph % (Auto) 15.6 L (18.3-44.2) % Vermilion % (Auto) 7.2 (2.6-8.5) % Eos % (Auto) 0.3 (0-4.4) % Baso % (Auto) 0.2 (0.2-1.2) % Lymph # (Auto) 1.85 (0.9-3.2) K/mm3 Vermilion # (Auto) 0.9 H (0.1-0.6) K/mm3 Eos # (Auto) 0.0 (0-0.3) K/mm3 Baso # (Auto) 0.0 (0.0-0.1) K/mm3 Abs Immat Gran (auto) 0.11 H (0.00-0.031) K/mm3 Absolute Neuts (auto) 9.0 H (1.3-6.7) K/mm3 Absolute Nucleated RBC 0.000 (0.0-0.012) K/mm3 Nucleated RBC % 0.0 (0.0-0.2) % Sodium 122 L (137-145) mmol/L Potassium 4.2 (3.4-5.0) mmol/L Chloride 86 L (98-107) mmol/L Carbon Dioxide 28 (22-30) mmol/L Anion Gap 8 (4-12) mmol/L BUN 16 (9-20) mg/dL Creatinine 1.08 (0.7-1.3) mg/dL Estim Creat Clear Calc Not Reportable Estimated GFR > 60 (59 - ) Glucose 113 H (65-110) mg/dL Calcium 9.4 (8.4-10.2) mg/dL Total Bilirubin 0.5 (0.2-1.3) mg/dL AST 42 (17-59) U/L ALT 23 (6-50) U/L Alkaline Phosphatase 53 (38-126) U/L Total Protein 6.8 (6.3-8.2) g/dL Albumin 4.1 (3.5-5.1) g/dL <Hyun Mcgovern, FLIGHT HOSTESS - Last Filed: 11/26/24 15:54> Lab Results 11/26/24 Range/Units 12:30 WBC 11.8 H (4.5-10.0) K/mm3 RBC 3.96 L (4.6-6.20) M/mm3 Hgb 12.6 L (14.0-18.0) g/dL Hct 36.9 L (42.0-52.0) % MCV 93.2 (80-100) fl MCH 31.8 (26-34) pg MCHC 34.1 (32-36) g/dl RDW 13.5 (11.5-14.5) % Plt Count 206 (150-375) k/mm3 MPV 9.5 (7.4-10.4) fl Immature Gran % (Auto) 0.9 H (0-0.5) % Neut % (Auto) 75.8 H (45.5-73.1) % Lymph % (Auto) 15.6 L (18.3-44.2) % Vermilion % (Auto) 7.2 (2.6-8.5) % Eos % (Auto) 0.3 (0-4.4) % Baso % (Auto) 0.2 (0.2-1.2) % Lymph # (Auto) 1.85 (0.9-3.2) K/mm3 Vermilion # (Auto) 0.9 H (0.1-0.6) K/mm3 Eos # (Auto) 0.0 (0-0.3) K/mm3 Baso # (Auto) 0.0 (0.0-0.1) K/mm3 Abs Immat Gran (auto) 0.11 H (0.00-0.031) K/mm3 Absolute Neuts (auto) 9.0 H (1.3-6.7) K/mm3 Absolute Nucleated RBC 0.000 (0.0-0.012) K/mm3 Nucleated RBC % 0.0 (0.0-0.2) % Sodium 122 L (137-145) mmol/L Potassium 4.2 (3.4-5.0) mmol/L Chloride 86 L (98-107) mmol/L Carbon Dioxide 28 (22-30) mmol/L Anion Gap 8 (4-12) mmol/L BUN 16 (9-20) mg/dL Creatinine 1.08 (0.7-1.3) mg/dL Estim Creat Clear Calc Not Reportable Estimated GFR > 60 (59 - ) Glucose 113 H (65-110) mg/dL Calcium 9.4 (8.4-10.2) mg/dL Total Bilirubin 0.5 (0.2-1.3) mg/dL AST 42 (17-59) U/L ALT 23 (6-50) U/L Alkaline Phosphatase 53 (38-126) U/L Total Protein 6.8 (6.3-8.2) g/dL Albumin 4.1 (3.5-5.1) g/dL <Meenu Erwin MD - Last Filed: 11/26/24 15:56> Imaging Data Radiologist's impression: Impressions Cervical Spine CT 11/26/24 11:48 IMPRESSION: 1. Mild cervical spondylosis and chronic appearing mild T2 compression fracture. No acute osseous abnormality. Head CT 11/26/24 11:54 IMPRESSION: No acute intracranial findings. Chest X-Ray 11/26/24 12:26 IMPRESSION: No acute cardiopulmonary pathology. Hip/Pelvis X-Ray 11/26/24 12:33 IMPRESSION: 1. Nondisplaced transcervical fracture of the proximal left femur. <Hyun Mcgovern APRN - Last Filed: 11/26/24 15:54> Discharge Plan Discharge Clinical Impression: Acute hyponatremia Fracture of femur, left, closed Qualifiers: Encounter type: initial encounter Femur location: midcervical Fracture alignment: nondisplaced Qualified Code(s): S72.035A - Nondisplaced midcervical fracture of left femur, initial encounter for closed fracture <Hyun Mcgovern APRN - Last Filed: 11/26/24 15:54> Patient Disposition: Still a Patient <Hyun Mcgovern APRN - Last Filed: 11/26/24 15:54> Condition: Stable <Hyun Mcgovern APRN - Last Filed: 11/26/24 15:54> Time of Disposition: 15:54 <Hyun Mcgovern APRN - Last Filed: 11/26/24 15:54> 15:54 <Meenu Erwin MD - Last Filed: 11/26/24 15:56>
--- OUTSIDE RECORDS SUMMARY | 2024-11-26 11:46 | XMS_ITS | Clinical Summary ---
Author Organization [facility] Address [address] [facility], [address] [address] Phone Care Team Providers Care Aerospace Quality Engineer Name Role Phone Nicok Nance DO Unavailable [phone] Linda Auguste CLINICAL NURSE MANAGER, TAPE LIBRARIAN Unavailable [phone] Juanita Estrada CLINICAL NURSE MANAGER, TAPE LIBRARIAN Unavailable Rohit Watson Primary Care Provider Allergies [...] Description 11/01/2024 10:30 AM CDT Office Visit [facility] - [facility] - [place] [address] [place] [address] Rohit Watson, CONCHA Preventative health care (Adult) (Primary Dx); Chronic hyponatremia; Vitamin D deficiency; Current mild episode of major depressive disorder, unspecified whether recurrent (HCC); Bipolar affective disorder, remission status unspecified (HCC); Screening for prostate cancer; Encounter for immunization; Encounter for lipid screening for cardiovascular disease Discharge Disposition: Discharged to home or Selfcare 11/01/2024 Travel 10/29/2024 Telephone [facility] [address] [place] [phone] Rohit Watson, PAC Request for Records from [...] Valent 2 Pneumococcal conjugate PCV20 , polysaccharide [id number] conjugate, adjuvant, PF 11/01/2024 TB Skin Test [...] st Contact Info) Description 05/03/2025 11:00 AM REGISTERED NURSE HH CASE MANAGER Office Visit [facility] - [facility] - [place] [address] [place] [address] Rohit Watson, PAC [address] [place] [address] Health Maintenance Due Date Last [...] HEPATITIS C ANTIBODY Today 04/30/2022 9:37 AM REGISTERED NURSE HH CASE MANAGER Need for hepatitis C screening test PSA [...] Jordana Dutta M.D. FT: FT Report ID: [id number] Reading Location: [place] [address] Procedure Note Jordana Ramos MD - 11/25/2023 [...] Jordana Dutta M.D. FT: FT Report ID: [id number] Reading Location: [id number] IMPRESSION: Ground-glass nodule in the left lower lobe has resolved. No new or suspicious pulmonary nodule. Lung-RADS category 1: Negative. Recommendation: Low dose Screening CT of chest in 12 months. Rohit Watson [facility] IMG CT ORDERABLES Final Resu lt * HEPATITIS C ANTIBODY (04/30/2022 9:37 AM REGISTERED NURSE HH CASE MANAGER) hepatitis C antibody 0.07 <1 S/CO [facility] ARCH [id number] 04/30/2022 11:21 PM REGISTERED NURSE HH CASE MANAGER [facility] Comment: Signal/Cutoff ratio < 0.79 is Nondetected Signal/Cutoff ratio 0.80-0.99 is Grayzone Signal/Cutoff ratio > 0.99 is Detected Supplemental assays are recommended if signal/cutoff ratio is >/=1.00. Signal/cutoff ratio result >/= 5.00 is 97% predictive of positivity for recombinant immunoblot assay (RIBA) and will be reported to the [place] Department of Public Health as required. Blood Venipuncture / Unknown 04/30/2022 9:37 AM REGISTERED NURSE HH CASE MANAGER 04/30/2022 9:37 AM REGISTERED NURSE HH CASE MANAGER Re Escobar MD CHEMISTRY ORDERABLES Final R esult [facility] [address] [place] [address], [place] * PSA SCREEN (09/23/2020 8:04 AM CDT) Pathologist [facility] PSA SCREEN, TOTAL 0.47 <=4.00 ng/mL 09/23/2020 2:01 PM CDT [facility] Blood Venipuncture / Unknown 09/23/2020 8:04 AM CDT 09/23/2020 8:04 AM CDT Narrative [facility] - 09/23/2020 2:01 PM CDT PSA NOTE: The PSA value should be used in conjunction with information available from clinical evaluation and other diagnostic procedures. us Linda Prieto MD CHEMISTRY ORDERABLES Final R esult [facility] [address] [place] [address] from Last 3 Months or Most Recently Relevant to Health Maintenance Insurance MEDICARE C MOLINA Care Teams Aerospace Quality Engineer Relationship Specialty Start Date End Date Rohit Watson, CONCHA [address] [place] [phone] PCP - General Physician E/M Engineer 11/22/23 Nicko Nance DO Gastroenterology 11/21/15 Linda Auguste, CLINICAL NURSE MANAGER, TAPE LIBRARIAN Nurse Practitioner Advanced Practice Nurse 11/21/15 Juanita Estrada, JEFF, TAPE LIBRARIAN Nurse Practitioner Advanced Practice Nurse 11/21/15
[2024-11-26 12:47] LABS: Hematocrit 36.9 % (42.0-52.0); Hemoglobin 12.6 g/dL (14.0-18.0); Immature Granulocyte Percent A 0.9 % (0-0.5); Lymphocytes Absolute Auto 1.85 K/mm3 (0.9-3.2); Mean Corpuscular HGB Conc 34.1 g/dl (32-36); Mean Corpuscular Hemoglobin 31.8 pg (26-34); Mean Corpuscular Volume 93.2 fl (80-100); Nucleated Red Blood Cells Absolute Auto 0.000 K/mm3 (0.0-0.012); Nucleated Red Blood Cells Perc 0.0 % (0.0-0.2); Platelet Count Result 206 k/mm3 (150-375); Red Blood Count 3.96 M/mm3 (4.6-6.20); White Blood Count 11.8 K/mm3 (4.5-10.0)
[2024-11-26 13:09] LABS: Alanine Aminotransferase 23 U/L (6-50); Albumin Level 4.1 g/dL (3.5-5.1); Alkaline Phosphatase 53 U/L (38-126); Anion Gap 8 mmol/L (4-12); Aspartate Amino Transferase 42 U/L (17-59); Bilirubin,Total 0.5 mg/dL (0.2-1.3); Blood Urea Nitrogen 16 mg/dL (9-20); Calcium 9.4 mg/dL (8.4-10.2); Carbon Dioxide 28 mmol/L (22-30); Chloride 86 mmol/L (98-107); Estimated Glomerular Filt Rate > 60; Glucose 113 mg/dL (65-110); Potassium 4.2 mmol/L (3.4-5.0); Sodium 122 mmol/L (137-145); Total Protein 6.8 g/dL (6.3-8.2)
[2024-11-26 13:17] VITALS: BP 126/77; PULSE 72; RESP 16; TEMP 36.3; O2SAT 99
[2024-11-26] MEDS: fentaNYL CITRATE INJ (*CRX) 100 MCG/2 ML VIAL 50 MCG IV PUSH ×2 (13:18→16:11)
--- NOTE | 2024-11-26 13:25 | PC.NURSE ---
circus supervisor at bedside-updated this RN that patient has Shingles on his Buttocks. Received the Shingles injection and developed rash a few days later. Hunter Mcgovern ARMY SENIOR OFFICER made aware
[2024-11-26] MEDS: SODIUM CHLORIDE 0.9% IV 1,000 ML 150 ML IV CONT (14:05)
--- NOTE | 2024-11-26 14:16 | PM.IMHP ---
H&P: HPI History of Present Illness Date/Time: 11/26/24 14:16 Chief Complaint: Fall, Hip Pain Narrative: 59 y/o M with PMH of Bipolar 1 and ASD presents here with a fall and left hip pain. The patient presents here from his long-term on 11/26 for further evaluation after a ground level fall and left hip pain. The patient was doing a walking/marching exercises when he had a fall. He fell backwards striking his head on the countertop and then fell onto his left side. He denies loss of consciousness. Now has pain to his left side and left hip. He was unable to ambulate post fall which prompted a call to EMS. He denies accompanying headache, neck pain, dizziness, chest pain, nausea, vomiting, or diarrhea. He is not currently on anticoagulation. Initial VS at presentation: 97.2F, HR 88, RR 18, 92/61, 99% on RA. ED workup showed: WBC 11/8, Hgb 12.6, Na 122 (previously 129 in 2022). C-spine CT showed mild cervical spondylosis and chronic T2 compression fracture, no acute osseous abnormality. Head CT showed no acute intracranial findings. CXR showed no acute cardiopulmonary pathology. Hip/pelvic XR showed a nondisplaced transcervical fracture of the proximal left femur. Review of Systems Review of Systems: All systems reviewed & are unremarkable except as noted in HPI and below PMFSH Past Medical History Medical History (Updated 11/26/24 @ 21:17 by Tarsha Velásquez APRN) Glaucoma Autism spectrum disorder Bipolar 1 disorder Surgical History Surgical History (Updated 11/26/24 @ 21:17 by Tarsha Velásquez APRN) History of appendectomy Family History Family History Mother Diabetes mellitus Social History Social History Smoking status: Current some day smoker Tobacco type: cigars Alcohol intake: never Substance use: never Do You Feel Safe in your Home?: Yes Lack of Transportation: No Lack of Food: Never True Current Housing: I Have Housing Concerned About Future Housing: Decline to Answer Difficulty Paying Gas/Electric Bills: Decline to Answer Difficulty Paying for Meds: Decline to Answer Currently Unemployed: Decline to Answer Education: High School Diploma/GED Difficulty w/ Childcare or Family Care: Decline to Answer Spiritual care concerns: No Meds Home Medications and Allergies Home Medications ?Medication ?Instructions ?Recorded ?Confirmed ?Type benztropine 0.5 mg tablet 0.5 mg PO TID 05/26/23 11/26/24 History bimatoprost 0.01 % eye drops 1 drp EACH EYE HS 05/26/23 11/26/24 History (Lumigan) calcium carbonate 600 mg PO BID 05/26/23 11/26/24 History cholecalciferol (vitamin D3) 25 25 mcg PO DAILY 05/26/23 11/26/24 History mcg (1,000 unit) tablet divalproex 500 mg tablet,extended 500 mg PO BID 05/26/23 11/26/24 History release 24 hr folic acid 1 mg tablet 1 mg PO DAILY 05/26/23 11/26/24 History hydroxyzine pamoate 50 mg capsule 50 mg PO TID 05/26/23 11/26/24 History loratadine 10 mg tablet 10 mg PO DAILY 05/26/23 11/26/24 History lurasidone 120 mg tablet 120 mg PO DAILY 05/26/23 11/26/24 History sodium chloride 1,000 mg soluble 1,000 mg PO BID 05/26/23 11/26/24 History tablet venlafaxine 150 mg 150 mg PO DAILY 05/26/23 11/26/24 History capsule,extended release 24 hr ibuprofen 600 mg tablet 600 mg PO Q6H PRN fever or pain 06/20/23 11/26/24 Rx #30 tabs acetaminophen 325 mg tablet 650 mg PO Q4H PRN fever or pain 11/26/24 11/26/24 History aluminum-mag hydroxide-simethicone 30 ml PO Q4H PRN indigestion 11/26/24 11/26/24 History 400 mg-400 mg-40 mg/5 mL oral susp (Mylanta Maximum Strength) bisacodyl 5 mg tablet 10 mg PO DAILY PRN constipation 11/26/24 11/26/24 History bismuth subsalicylate 262 mg/15 mL 524 mg PO QID PRN diarrhea 11/26/24 11/26/24 History oral suspension (Diarrhea Relief (bismuth subsalicylate)) diphenhydramine HCl 25 mg capsule 25 mg PO Q6H PRN allergy symptoms 11/26/24 11/26/24 History (Banophen) docusate sodium 100 mg capsule 100 mg PO 00,209911/26/24 11/26/24 History guaifenesin 100 mg/5 mL oral 200 mg PO Q4H PRN cough 11/26/24 11/26/24 History liquid (Chest Congestion Relief) ibuprofen 600 mg tablet (IBU) 600 mg PO Q6H PRN fever or pain 11/26/24 11/26/24 History risperidone 4 mg tablet 4 mg PO [id number],209911/26/24 11/26/24 History valacyclovir 1 gram tablet 1,000 mg PO Q12H 11/26/24 11/26/24 History Allergies Allergy/AdvReac Type Severity Reaction Status Date / Time Penicillins Allergy Unknown Unknown Verified 05/26/23 13:36 Vital Signs Vital Signs - 24 hr 11/26/24 11:08 11/26/24 13:17 Temperature 97.2 F L 97.4 F L Pulse Rate 88 72 Respiratory Rate 18 16 Blood Pressure 92/61 L 126/77 Pulse Oximetry 99 99 Exam Const: General: comfortable and no acute distress Other: , male, nontoxic appearance, disheveled HENMT: Face/Nose/Sinus: Normal nares present Mouth: Yes moist mucous membranes Eyes: General: appearance normal, both eyes and all related structures Sclera: sclerae normal Pupils: Equal, round and reactive pupils present EOM: EOMs intact bilaterally Resp: Effort & Inspection: normal respiratory effort Auscultation: clear to auscultation bilaterally Cardio: Rate: regular rate Rhythm: regular rhythm Other: S1-S2 present without murmur, rub, ectopy GI: Other: Abdomen soft, nondistended, nontender. Normoactive bowel sounds in all quadrants. Back/Spine/Pelvis: Other: Pain to the left hip/pelvis with palpation Skin: General skin exam: no rashes or lesions noted Wounds: no wounds Other: Mild pallor Neuro: Speech: normal speech Motor exam (neuro): 5/5 motor strength present throughout Sensory Exam: normal sensation Other: A&O x4 Extrem: General: normal to inspection Other: DP pulses 2+ bilaterally Psych: Mental Status: mental status grossly normal Affect: normal affect Other: Fair to poor insight and judgment, pleasant H&P: Results Labs Labs: Short CBC 11/26/24 Range/Units 12:30 WBC 11.8 H (4.5-10.0) K/mm3 Hgb 12.6 L (14.0-18.0) g/dL Hct 36.9 L (42.0-52.0) % Plt Count 206 (150-375) k/mm3 BMP 11/26/24 12:30 Sodium 122 L Potassium 4.2 Chloride 86 L Carbon Dioxide 28 BUN 16 Creatinine 1.08 Glucose 113 H Calcium 9.4 Liver Function 11/26/24 Range/Units 12:30 Total Bilirubin 0.5 (0.2-1.3) mg/dL AST 42 (17-59) U/L ALT 23 (6-50) U/L Alkaline Phosphatase 53 (38-126) U/L Albumin 4.1 (3.5-5.1) g/dL Assessment and Plan Assessment and plan (1) Fracture of femur, left, closed: Qualifiers: Encounter type: initial encounter Femur location: midcervical Fracture alignment: nondisplaced Qualified Code(s): S72.035A - Nondisplaced midcervical fracture of left femur, initial encounter for closed fracture Code(s): S72.92XA - Unspecified fracture of left femur, initial encounter for closed fracture Status: Acute Assessment and Plan: - GLF resulting in a nondisplaced transcervical fracture of the proximal left femur. - ortho consulted - analgesics prn - NPO at midnight - bed rest (2) Hyponatremia: Code(s): E87.1 - Hypo-osmolality and hyponatremia Status: Acute Assessment and Plan: - Na 122, previously 129 in 2022 - check serum osmolality, urine osmolality, urine sodium, protein to creatinine ratio, urine creatinine - bmp Q4H - reportedly chronic. on Risperidone, Lurasidone, Divalproex, Effexor, Benztropine which are likely contributing. patient also reportedly does not stick to his fluid restriction and will sneak water - trend renal function - NS at 150 mL/hr x1L - continue NaCl tabs 1G BID Plan Diet: regular, NPO at midnight. fluid restriction. GI Prophylaxis: NA DVT Prophylaxis: SCDs IV fluids: NS at 150 mL/hr x1L Lines/Tubes: peripheral IV Code Status: full code Quality VTE Prophylaxis VTE prophylaxis: mechanical ordered Hospitalist MIPS Advance Care Plan I have confirmed that the patient's Advanced Care Plan is present, code status is documented, or surrogate decision maker is listed in patient medical record.: Yes Medication Reconciliation I have utilized all available resources to obtain, update and review the patients current medications (includes all prescriptions, OTC, herbals, cannabis, and nutritional supplements).: Yes
[2024-11-26 16:02] VITALS: BP 140/85; PULSE 84; RESP 22; TEMP 36.2; O2SAT 98
--- NOTE | 2024-11-26 16:15 | PC.NURSE ---
This patient, Santiago De La Cruz, was admitted to 3 [facility] Surg Room 317-01. Patient/family oriented to hospital policies and general routines including ID bracelet, bed and alarms, visiting hours, pain management, procedures, bathroom and other care routines, personal items, smoking policy, room service/diet, and visiting hours. Information on how to activate the Rapid Response Team has been discussed. Patient/Family are encouraged to report perceived risks to care and to ask questions if they do not understand what they are told or what they should do.
--- NOTE | 2024-11-26 16:15 | PM.CNOR ---
Assessment and Plan Assessment and plan (1) Fracture of femur, left, closed: Qualifiers: Encounter type: initial encounter Femur location: midcervical Fracture alignment: nondisplaced Qualified Code(s): S72.035A - Nondisplaced midcervical fracture of left femur, initial encounter for closed fracture Code(s): S72.92XA - Unspecified fracture of left femur, initial encounter for closed fracture Status: Acute Plan Non-displaced femoral neck fracture with impaction. Risk of displacement. Recommend percutaneous pinning. We discussed the risks, benefits, and alternatives to surgery. Will use Synthes 7.3mm cannulated screws. Anticipate 4-6 weeks rehab with PWB using a walker. Proceed with percutaneous pinning of left hip femoral neck fracture. History of Present Illness HPI Consult date: 11/26/24 Chief complaint: Proximal Femur Fracture Narrative: Patient complains of acute left hip pain. Fell from standing height. Admitted through the emergency room for definitive management. No previous hip pain. Comfortable at rest. No numbness, tingling, or other associated symptoms. He lives in assisted living; has several steps to his room. Review of Systems Review of Systems: Denies loss of consciousness. All systems reviewed & are unremarkable except as noted in HPI and below PMFSH Past Medical History Medical History Autism spectrum disorder Bipolar 1 disorder Meds Home Medications and Allergies Home Medications ?Medication ?Instructions ?Recorded ?Confirmed ?Type benztropine 0.5 mg tablet 0.5 mg PO TID 05/26/23 05/26/23 History bimatoprost 0.01 % eye drops 1 drp EACH EYE HS 05/26/23 05/26/23 History (Lumigan) calcium carbonate 600 mg PO BID 05/26/23 05/26/23 History cholecalciferol (vitamin D3) 25 25 mcg PO DAILY 05/26/23 05/26/23 History mcg (1,000 unit) tablet divalproex 500 mg tablet,extended 500 mg PO BID 05/26/23 05/26/23 History release 24 hr folic acid 1 mg tablet 1 mg PO DAILY 05/26/23 05/26/23 History hydroxyzine pamoate 50 mg capsule 50 mg PO TID 05/26/23 05/26/23 History loratadine 10 mg tablet 10 mg PO DAILY 05/26/23 05/26/23 History lurasidone 120 mg tablet 120 mg PO DAILY 05/26/23 05/26/23 History sodium chloride 1,000 mg soluble 1,000 mg PO BID 05/26/23 05/26/23 History tablet venlafaxine 150 mg 150 mg PO DAILY 05/26/23 05/26/23 History capsule,extended release 24 hr acetaminophen 500 mg tablet 500 mg PO Q6H PRN fever or pain 06/20/23 Rx (Tylenol Extra Strength) #30 tabs ibuprofen 600 mg tablet 600 mg PO Q6H PRN fever or pain 06/20/23 Rx #30 tabs Allergies Allergy/AdvReac Type Severity Reaction Status Date / Time Penicillins Allergy Unknown Unknown Verified 05/26/23 13:36 Vital Signs Vital Signs - 24 hr 11/26/24 11:08 11/26/24 13:17 11/26/24 16:02 Temperature 36.2 C L 36.3 C L 36.2 C L Pulse Rate 88 72 84 Respiratory Rate 18 16 22 H Blood Pressure 92/61 L 126/77 140/85 Pulse Oximetry 99 99 98 Exam Narrative: Lower extremity shortened and externally rotated. Const: General: no acute distress Eyes: General: appearance normal, both eyes and all related structures Resp: Effort & Inspection: normal respiratory effort GI: GI Palp: Yes Soft to palpation and No Guarding due to palpation present (GI) Urinary Catheter: Urinary Catheter: patent and draining and urine clear Skin: General skin exam: no rashes or lesions noted Neuro: Speech: normal speech Other: Wiggles toes well. Capillary refill brisk. Distal light touch sensation intact. Dorsalis pedis pulse palpable. Extrem: Other: No edema. Psych: Mental Status: mental status grossly normal Results Labs 11/26/24 12:30 11/26/24 12:30 Labs: Abnormal lab results 11/26/24 Range/Units 12:30 WBC 11.8 H (4.5-10.0) K/mm3 RBC 3.96 L (4.6-6.20) M/mm3 Hgb 12.6 L (14.0-18.0) g/dL Hct 36.9 L (42.0-52.0) % Immature Gran % (Auto) 0.9 H (0-0.5) % Neut % (Auto) 75.8 H (45.5-73.1) % Lymph % (Auto) 15.6 L (18.3-44.2) % [place] # (Auto) 0.9 H (0.1-0.6) K/mm3 Abs Immat Gran (auto) 0.11 H (0.00-0.031) K/mm3 Absolute Neuts (auto) 9.0 H (1.3-6.7) K/mm3 Sodium 122 L (137-145) mmol/L Chloride 86 L (98-107) mmol/L Glucose 113 H (65-110) mg/dL H & H 07/14/25 Range/Units 12:30 Hgb 12.6 L (14.0-18.0) g/dL Hct 36.9 L (42.0-52.0) % All other labs normal. Quality VTE Prophylaxis VTE prophylaxis: mechanical ordered
[2024-11-26 16:24] VITALS: BMI 24.5
[2024-11-26 18:17] LABS: Anion Gap 6 mmol/L (4-12); Blood Urea Nitrogen 13 mg/dL (9-20); Calcium 7.5 mg/dL (8.4-10.2); Carbon Dioxide 24 mmol/L (22-30); Chloride 94 mmol/L (98-107); Estimated CRCL calculation 100 ml/min; Estimated Glomerular Filt Rate > 60; Glucose 103 mg/dL (65-110); Potassium 3.9 mmol/L (3.4-5.0); Sodium 124 mmol/L (137-145)
[2024-11-26] MEDS: HYDROcodone/acetaminophen (*CRX) 5-325 MG TABLET 1 TAB PO (19:29)
[2024-11-26 20:12] LABS: Total Protein Urine Random 16 mg/dL; Ur Ttl Prot Creatinine Ratio 0.16 mg/mg (0-0.20)
[2024-11-26 20:45] VITALS: BP 151/94; PULSE 79; RESP 20; TEMP 36.4; O2SAT 97
[2024-11-26 20:53] LABS: Anion Gap 6 mmol/L (4-12); Blood Urea Nitrogen 13 mg/dL (9-20); Calcium 8.7 mg/dL (8.4-10.2); Carbon Dioxide 26 mmol/L (22-30); Chloride 89 mmol/L (98-107); Estimated CRCL calculation 92 ml/min; Estimated Glomerular Filt Rate > 60; Glucose 162 mg/dL (65-110); Potassium 4.3 mmol/L (3.4-5.0); Sodium 121 mmol/L (137-145)
[2024-11-26] MEDS: DOCUSATE SODIUM 100 MG CAPSULE PO (22:20)
[2024-11-26] MEDS: LATANOPROST 0.005% OP SOLN 2.5 ML BTL 1 DROP EACH EYE (22:21)
[2024-11-26] MEDS: DIVALPROEX SODIUM ER 500 MG TAB.24H PO (22:21)
[2024-11-26] MEDS: BENZTROPINE MESYLATE 0.5 MG TABLET PO (22:21)
[2024-11-26] MEDS: diphenhydrAMINE HCl CAP 25 MG CAPSULE PO (22:40)
[2024-11-27 01:12] LABS: Anion Gap 6 mmol/L (4-12); Blood Urea Nitrogen 12 mg/dL (9-20); Calcium 8.6 mg/dL (8.4-10.2); Carbon Dioxide 26 mmol/L (22-30); Chloride 90 mmol/L (98-107); Estimated CRCL calculation 95 ml/min; Estimated Glomerular Filt Rate > 60; Glucose 127 mg/dL (65-110); Potassium 3.9 mmol/L (3.4-5.0); Sodium 122 mmol/L (137-145)
[2024-11-27 05:10] VITALS: BP 149/80; PULSE 76; RESP 18; TEMP 36.2; O2SAT 95
--- NOTE | 2024-11-27 07:24 | WPDHPUPDATE1 ---
History and Physical Update Update Date/Time: 11/27/24 07:24 History and Physical has been reviewed, including an updated exam of the patient. There are NO changes in the patient's condition. Risks, benefits, and alternatives have been discussed and questions answered. Patient agrees to proceed with procedure.
[2024-11-27] MEDS: VENLAFAXINE HCL XR 75 MG CAP.ER.24H 150 MG PO (09:12)
[2024-11-27] MEDS: FOLIC ACID 1 MG TABLET PO (09:13)
[2024-11-27] MEDS: CHOLECALCIFEROL (VITAMIN D3) 25 MCG (1,000 UNITS) TABLET PO (09:13)
[2024-11-27] MEDS: SODIUM CHLORIDE 1 GM TABLET PO ×2 (09:13→16:14)
[2024-11-27] MEDS: CALCIUM CARBONATE (OSCAL) 500 MG TABLET PO ×2 (09:13→16:14)
[2024-11-27] MEDS: DIVALPROEX SODIUM ER 500 MG TAB.24H PO ×2 (09:14→21:58)
[2024-11-27] MEDS: [UNRECOGNIZED DRUG - OTHER] PO (09:15)
[2024-11-27] MEDS: LURASIDONE 40 MG PO (09:15)
[2024-11-27] MEDS: BENZTROPINE MESYLATE 0.5 MG TABLET PO ×3 (09:16→22:04)
[2024-11-27] MEDS: HYDROcodone/acetaminophen (*CRX) 5-325 MG TABLET 1 TAB PO ×2 (09:27→16:13)
[2024-11-27] MEDS: diphenhydrAMINE HCl CAP 25 MG CAPSULE PO (09:28)
[2024-11-27 11:18] LABS: Anion Gap 4 mmol/L (4-12); Blood Urea Nitrogen 10 mg/dL (9-20); Calcium 8.6 mg/dL (8.4-10.2); Carbon Dioxide 27 mmol/L (22-30); Chloride 93 mmol/L (98-107); Estimated CRCL calculation 103 ml/min; Estimated Glomerular Filt Rate > 60; Glucose 117 mg/dL (65-110); Potassium 4.3 mmol/L (3.4-5.0); Sodium 124 mmol/L (137-145)
--- NOTE | 2024-11-27 11:54 | P.PNIM_ITS ---
Progress Note: A&P Assessment and Plan (1) Fracture of femur, left, closed: Qualifiers: Encounter type: initial encounter Femur location: midcervical Fracture alignment: nondisplaced Qualified Code(s): S72.035A - Nondisplaced midcervical fracture of left femur, initial encounter for closed fracture Code(s): S72.92XA - Unspecified fracture of left femur, initial encounter for closed fracture Status: Acute Assessment and Plan: - GLF resulting in a nondisplaced transcervical fracture of the proximal left femur. - ortho consulted - analgesics prn - NPO at midnight - bed rest Currently on hold due to hyponatremia (2) Hyponatremia: Code(s): E87.1 - Hypo-osmolality and hyponatremia Status: Acute Assessment and Plan: - Na 122, previously 129 in 2022 - check serum osmolality, urine osmolality, urine sodium 81, protein to creatinine ratio 0.16, urine creatinine 1 O2 - bmp Q4H - reportedly chronic. on Risperidone, Lurasidone, Divalproex, Effexor, Benztropine which are likely contributing. patient also reportedly does not stick to his fluid restriction and will sneak water - trend renal function - NS at 150 mL/hr x1L received 11/26/2024 2:00 p.m. with worsening of sodium level indicating possibly SIADH. - continue NaCl tabs 1 gm BID Recheck sodium this afternoon. May need to add Lasix along with salt tablet. Nephrology consult Will check thyroid function and cortisol level random Plan Diet: regular, fluid restriction GI Prophylaxis: NA DVT Prophylaxis: SCDs IV fluids: NS at 150 mL/hr x1L Lines/Tubes: peripheral IV Code Status: full code Subjective Date/time seen: 11/27/24 11:54 Interval history: Patient was plan for left hip surgery today however postponed due to hyponatremia. Patient reports soreness in left hip. Denies any chest pain or shortness of breath. Review of Systems Review of Systems: All systems reviewed & are unremarkable except as noted in HPI and below Exam Narrative: GENERAL: Well-appearing, well-nourished, and in no acute distress. HEAD: Normocephalic, atraumatic. EYES: PERRLA and EOMI. ENT: Nares clear, no rhinorrhea or epistaxis. Mucous membranes moist. NECK: Supple. No adenopathy or masses. No carotid bruits or JVD CHEST: Clear to auscultation. No respiratory distress. No wheezes rales or rhonchi HEART: Regular rate and rhythm. No murmur heard. Normal peripheral pulses. ABDOMEN: Soft, nontender, nondistended, normal active bowel sounds. EXTREMITIES: Patient does not want his left hip touched, stating this is causing him a lot of pain, no bruise noted. SKIN: Warm, dry, no rash. NEURO: No focal deficits. Alert and oriented x3. PSYCH: Normal mood and affect. Objective Data Vital Signs Vital Signs: Vital Signs - 24 hr 11/26/24 13:17 11/26/24 16:02 11/26/24 16:45 Temperature 97.4 F L 97.2 F L Pulse Rate 72 84 Respiratory Rate 16 22 H Blood Pressure 126/77 140/85 Pulse Oximetry 99 98 Oxygen Delivery Room Air 11/26/24 20:45 11/26/24 22:21 11/27/24 05:10 Temperature 97.5 F L 97.2 F L Pulse Rate 79 76 Respiratory Rate 20 18 Blood Pressure 151/94 H 149/80 H Pulse Oximetry 97 95 Oxygen Delivery Room Air Intake/Output Intake/Output: Intake & Output 11/24/24 11/25/24 11/26/24 11/27/24 23:59 23:59 23:59 23:59 Intake Total 260 340 Output Total 650 Balance 260 -310 Meds/Results Medications: Active Medications Generic Name Dose Route Start Last Admin Trade Name Freq PRN Reason Stop Dose Admin Acetaminophen 650 mg 11/26/24 14:45 Acetaminophen 325 Mg Tablet PO Q6H PRN Mild Pain (1-3) or Fever Hydrocodone Bitart/Acetaminophen 1 tab 11/26/24 14:45 11/27/24 09:27 Hydrocodone/Acetaminophen (*Crx) 5-325 Mg Tablet PO 1 tab Q6H PRN Administration Pain Rated 4-6 Al Hydrox/Mg Hydrox/Simethicone 30 ml 11/26/24 21:26 Mag Hydrox/Al Hydrox/Simeth 30 Ml Udc PO Q4H PRN Indigestion Benztropine Mesylate 0.5 mg 11/26/24 21:25 11/27/24 09:16 Benztropine Mesylate 0.5 Mg Tablet PO 0.5 mg 0700,1730,2100 [facility] Administration Bisacodyl 10 mg 11/26/24 21:18 Bisacodyl 5 Mg Tablet Ec PO DAILY PRN constipation Bismuth Subsalicylate 524 mg 11/26/24 21:30 Bismuth Subsalicylate 262 Mg Chewable Tablet PO QID PRN diarrhea Calcium Carbonate 500 mg 11/27/24 09:00 11/27/24 09:13 Calcium Carbonate (Oscal) 500 Mg Tablet PO 500 mg BID DIANE Administration Diphenhydramine HCl 25 mg 11/26/24 21:18 11/27/24 09:28 Diphenhydramine Hcl Cap 25 Mg Capsule PO 25 mg Q6H PRN Administration allergy symptoms Divalproex Sodium 500 mg 11/26/24 21:25 11/27/24 09:14 Divalproex Sodium Er 500 Mg Tab.24h PO 500 mg Q12HR [facility] Administration Docusate Sodium 100 mg 11/26/24 21:25 11/27/24 09:16 Docusate Sodium 100 Mg Capsule PO Not Given 699,2099 [facility] Fentanyl Citrate 25 mcg 11/26/24 14:45 Fentanyl Citrate Inj (*Crx) 100 Mcg/2 Ml Vial IV PUSH Q4H PRN Pain Rated 7-10 Folic Acid 1 mg 11/27/24 09:00 11/27/24 09:13 Folic Acid 1 Mg Tablet PO 1 mg DAILY [facility] Administration Guaifenesin 200 mg 11/26/24 21:18 Guaifenesin 200 Mg/10 Ml Udc PO Q4H PRN cough Hydroxyzine Pamoate 50 mg 11/27/24 09:00 11/27/24 09:13 Hydroxyzine Pamoate 25 Mg Capsule PO 50 mg TID [facility] Administration Lactated Ringer's 1,000 mls @ 30 mls/hr 11/27/24 07:25 Lr - Lactated Ringers Iv IV CONT .Q24H [facility] Latanoprost 1 drop 11/26/24 21:30 11/26/24 22:21 Latanoprost 0.005% Op Soln 2.5 Ml Btl EACH EYE 1 drop HS [facility] Administration Nonformulary Drug 0 mg 11/27/24 09:00 11/27/24 09:15 Lurasidone 40 Mg PO 12/27/24 08:59 120 mg Tablet DAILY DIANE Administration Risperidone 4 mg 11/26/24 21:30 11/27/24 09:14 Risperidone 1 Mg Tablet PO 4 mg 0700,2100 DIANE Administration Sodium Chloride 1 gm 11/27/24 09:00 11/27/24 09:13 Sodium Chloride 1 Gm Tablet PO 1 gm BID DIANE Administration Valacyclovir HCl 1,000 mg 11/26/24 21:20 11/26/24 22:20 Valacyclovir Hcl 500 Mg Tablet PO 1,000 mg Q12HR DIANE Administration Venlafaxine HCl 150 mg 11/27/24 07:00 11/27/24 09:12 Venlafaxine Hcl Xr 75 Mg Cap.Er.24h PO 150 mg DAILY@0700 DIANE Administration Vitamin D 25 mcg 11/27/24 09:00 11/27/24 09:13 Cholecalciferol (Vitamin D3) 25 Mcg (1,000 Units) Tablet PO 25 mcg DAILY DIANE Administration Radiology Results: ITS Impressions Cervical Spine CT 11/26/24 11:48 IMPRESSION: 1. Mild cervical spondylosis and chronic appearing mild T2 compression fracture. No acute osseous abnormality. Head CT 11/26/24 11:54 IMPRESSION: No acute intracranial findings. Chest X-Ray 11/26/24 12:26 IMPRESSION: No acute cardiopulmonary pathology. Hip/Pelvis X-Ray 11/26/24 12:33 IMPRESSION: 1. Nondisplaced transcervical fracture of the proximal left femur. Labs Labs: Laboratory Results - last 24 hr 11/26/24 11/26/24 11/26/24 12:30 17:55 19:42 WBC 11.8 H RBC 3.96 L Hgb 12.6 L Hct 36.9 L MCV 93.2 MCH 31.8 MCHC 34.1 RDW 13.5 Plt Count 206 MPV 9.5 Immature Gran % (Auto) 0.9 H Neut % (Auto) 75.8 H Lymph % (Auto) 15.6 L [place] % (Auto) 7.2 Eos % (Auto) 0.3 Baso % (Auto) 0.2 Lymph # (Auto) 1.85 [place] # (Auto) 0.9 H Eos # (Auto) 0.0 Baso # (Auto) 0.0 Abs Immat Gran (auto) 0.11 H Absolute Neuts (auto) 9.0 H Absolute Nucleated RBC 0.000 Nucleated RBC % 0.0 Sodium 122 L 124 L Potassium 4.2 3.9 Chloride 86 L 94 L Carbon Dioxide 28 24 Anion Gap 8 6 BUN 16 13 Creatinine 1.08 0.76 Estim Creat Clear Calc Not Reportable 100 Estimated GFR > 60 > 60 Glucose 113 H 103 Calcium 9.4 7.5 L Total Bilirubin 0.5 AST 42 ALT 23 Alkaline Phosphatase 53 Total Protein 6.8 Albumin 4.1 U Random Total Protein Ur Random Sodium Urine Creatinine 102.7 Protein/Creat Ratio 2 11/26/24 11/26/24 11/27/24 19:45 20:36 00:48 WBC RBC Hgb Hct MCV MCH MCHC RDW Plt Count MPV Immature Gran % (Auto) Neut % (Auto) Lymph % (Auto) [place] % (Auto) Eos % (Auto) Baso % (Auto) Lymph # (Auto) [place] # (Auto) Eos # (Auto) Baso # (Auto) Abs Immat Gran (auto) Absolute Neuts (auto) Absolute Nucleated RBC Nucleated RBC % Sodium 121 L 122 L Potassium 4.3 3.9 Chloride 89 L 90 L Carbon Dioxide 26 26 Anion Gap 6 6 BUN 13 12 Creatinine 0.83 0.80 Estim Creat Clear Calc 92 95 Estimated GFR > 60 > 60 Glucose 162 H 127 H Calcium 8.7 8.6 Total Bilirubin AST ALT Alkaline Phosphatase Total Protein Albumin U Random Total Protein 16 Ur Random Sodium 81 Urine Creatinine 102.2 Protein/Creat Ratio 2 0.16 11/27/24 10:44 WBC RBC Hgb Hct MCV MCH MCHC RDW Plt Count MPV Immature Gran % (Auto) Neut % (Auto) Lymph % (Auto) [place] % (Auto) Eos % (Auto) Baso % (Auto) Lymph # (Auto) [place] # (Auto) Eos # (Auto) Baso # (Auto) Abs Immat Gran (auto) Absolute Neuts (auto) Absolute Nucleated RBC Nucleated RBC % Sodium 124 L Potassium 4.3 Chloride 93 L Carbon Dioxide 27 Anion Gap 4 BUN 10 Creatinine 0.73 Estim Creat Clear Calc 103 Estimated GFR > 60 Glucose 117 H Calcium 8.6 Total Bilirubin AST ALT Alkaline Phosphatase Total Protein Albumin U Random Total Protein Ur Random Sodium Urine Creatinine Protein/Creat Ratio 2
[2024-11-27 13:01] LABS: Thyroid Stimulating Hormone Reflex 1.400 uIU/mL (0.465-4.68)
[2024-11-27 14:00] VITALS: BP 114/77; PULSE 78; RESP 18; TEMP 36.3; O2SAT 96
[2024-11-27 16:24] LABS: Sodium 127 mmol/L (137-145)
[2024-11-27 20:00] VITALS: PULSE 78; RESP 16; O2SAT 94
[2024-11-27 21:28] VITALS: BP 123/71; PULSE 78; RESP 16; TEMP 36.3; O2SAT 94
[2024-11-27] MEDS: DOCUSATE SODIUM 100 MG CAPSULE PO (21:57)
[2024-11-27] MEDS: LATANOPROST 0.005% OP SOLN 2.5 ML BTL 1 DROP EACH EYE (22:01)
[2024-11-27 23:04] LABS: Sodium 126 mmol/L (137-145)
[2024-11-28 01:09] LABS: Sodium 126 mmol/L (137-145)
[2024-11-28] MEDS: HYDROcodone/acetaminophen (*CRX) 5-325 MG TABLET 1 TAB PO ×3 (04:08→22:43)
[2024-11-28 05:56] LABS: Hematocrit 34.5 % (42.0-52.0); Hemoglobin 12.0 g/dL (14.0-18.0); Immature Granulocyte Percent A 0.3 % (0-0.5); Lymphocytes Absolute Auto 1.46 K/mm3 (0.9-3.2); Mean Corpuscular HGB Conc 34.8 g/dl (32-36); Mean Corpuscular Hemoglobin 32.5 pg (26-34); Mean Corpuscular Volume 93.5 fl (80-100); Nucleated Red Blood Cells Absolute Auto 0.000 K/mm3 (0.0-0.012); Nucleated Red Blood Cells Perc 0.0 % (0.0-0.2); Platelet Count Result 166 k/mm3 (150-375); Red Blood Count 3.69 M/mm3 (4.6-6.20); White Blood Count 10.8 K/mm3 (4.5-10.0)
[2024-11-28 06:00] VITALS: BP 143/77; PULSE 82; RESP 16; TEMP 36.3; O2SAT 94
[2024-11-28] MEDS: DOCUSATE SODIUM 100 MG CAPSULE PO ×2 (06:00→20:59)
[2024-11-28] MEDS: VENLAFAXINE HCL XR 75 MG CAP.ER.24H 150 MG PO (06:00)
[2024-11-28] MEDS: BENZTROPINE MESYLATE 0.5 MG TABLET PO ×3 (06:00→20:59)
[2024-11-28 06:47] LABS: Alanine Aminotransferase 15 U/L (6-50); Albumin Level 3.5 g/dL (3.5-5.1); Alkaline Phosphatase 55 U/L (38-126); Anion Gap 5 mmol/L (4-12); Aspartate Amino Transferase 27 U/L (17-59); Bilirubin,Total 0.3 mg/dL (0.2-1.3); Blood Urea Nitrogen 10 mg/dL (9-20); Calcium 9.2 mg/dL (8.4-10.2); Carbon Dioxide 28 mmol/L (22-30); Chloride 94 mmol/L (98-107); Estimated CRCL calculation 97 ml/min; Estimated Glomerular Filt Rate > 60; Glucose 107 mg/dL (65-110); Magnesium 1.7 mg/dL (1.6-2.3); Potassium 4.0 mmol/L (3.4-5.0); Sodium 127 mmol/L (137-145); Total Protein 6.2 g/dL (6.3-8.2)
[2024-11-28] MEDS: SODIUM CHLORIDE 1 GM TABLET PO ×2 (08:20→16:29)
[2024-11-28] MEDS: DIVALPROEX SODIUM ER 500 MG TAB.24H PO ×2 (08:21→20:59)
[2024-11-28] MEDS: LURASIDONE 40 MG PO (08:22)
[2024-11-28] MEDS: [UNRECOGNIZED DRUG - OTHER] PO (08:22)
[2024-11-28 12:24] LABS: Sodium 127 mmol/L (137-145)
--- NOTE | 2024-11-28 12:45 | P.CONNP_ITS ---
Assessment and Plan Assessment and plan (1) Hyponatremia: Code(s): E87.1 - Hypo-osmolality and hyponatremia Status: Acute Assessment and Plan: * acute on chronic * has been present as far back as 2018 if not longer -- seems to average ~ 127 - 133mmol/L * 130mmol/L in April 2024 * 129mmol/L in January 2023 (by [facility] records) * 127mmol/L in December 2022 * 133mmol/L in July 2018 * on salt tablets as an outpatient * chronic issue from: * psychiatric medications (risperidone, lurasidone, & effexor) * excessive free water intake * smoking history * acute issue from: * pain * pain medications * prerenal factors * evaluation to date noted: * serum/urine osmolality pending * urine electrolytes pre-renal * TSH okay * cortisol reasonable * checking SPEP/UPEP * improvement in sodium with salt tablets and fluid restriction * consider adding low dose lasix * will increase fluid restriction to 1500cc/day * follow trend of repeat sodium levels (2) Fracture of femur, left, closed: Qualifiers: Encounter type: initial encounter Femur location: midcervical Fracture alignment: nondisplaced Qualified Code(s): S72.035A - Nondisplaced midcervical fracture of left femur, initial encounter for closed fracture Code(s): S72.92XA - Unspecified fracture of left femur, initial encounter for closed fracture Status: Acute Plan * X-ray imaging noted: * non-displaced femoral neck fracture with impaction. * Orthopedic Surgery following * recommend percutaneous pinning. * anticipate 4-6 weeks rehab with PWB using a walker * surgery tentatively scheduled for tomorrow I will continue to follow the patient with you while he remains hospitalized and make further recommendations as deemed necessary. Thank you for allowing me to participate in the care of this patient. L History of Present Illness Reason for Consult Consult date: 11/28/24 Reason for consult: hyponatremia Chief Complaint Chief complaint: Proximal Femur Fracture History of Present Illness Narrative: The patient is a 59 y/o male with a past medical history as outlined below who presented to [facility] ER s/p fall and associated left hip pain. The patient was doing a walking/marching exercises when he had a fall. He fell backwards striking his head on the countertop and then fell onto his left side. He denies loss of consciousness, palpitations, chest pain, shortness of breath, dizziness or lightheadedness prior to or after the fall. However, following the fall, he experienced significant pain on his left side and left hip. He was unable to ambulate post fall which prompted a call to EMS. He denies accompanying headache, neck pain, dizziness, chest pain, nausea, vomiting, or diarrhea. On presentation to the ER, he was hemodynamically stable and afebrile. Routine testing was notable for a WBC 11.8, Hgb 12.6, and a sodium 122 with otherwise normal renal function. Subsequent imaging noted a C-spine CT aaron mild cervical spondylosis and chronic T2 compression fracture and no acute osseous abnormality; head CT with no acute intracranial findings; CXR with no acute cardiopulmonary pathology; and a hip/pelvic XR which showed a nondisplaced transcervical fracture of the proximal left femur. Orthopedics was consulted from the ER and the patient was subsequently admitted to the hospital for further evaluation and therapy. The patient was seen by Orthopedics and was tentatively scheduled for operative intervention with regard to his left femur fracture but the procedure was canceled due to his hyponatremia. However, his sodium level has been slowly improving with current interventions. Renal consultation was requested due to his acute on chronic hyponatremia. The patient has had evidence of hyponatremia that dates back as far as 2019 and is thought to be secondary to a combination of excessive free water intake as well as a multitude of his psychiatric medications. He has normal renal and salt tablets as an outpatient due to the chronicity of his low sodium level. However, in spite of his chronic hyponatremia, he is otherwise asymptomatic at baseline. I am unclear if he has ever had a formal evaluation with regard to his hyponatremia but given its relative stability in the last 5-6 years, I suspect no significant intervention has been done other than the aforementioned initiation of salt tablets. Currently, the time my evaluation he appears to be in no acute distress. Review of Systems 2 Review of Systems: As per HPI. [facility] Past Medical History Medical History (Updated 11/26/24 @ 21:17 by Tarsha Velásquez APRN) Glaucoma Autism spectrum disorder Bipolar 1 disorder Surgical History Surgical History (Updated 11/26/24 @ 21:17 by Tarsha Velásquez APRN) History of appendectomy Family History Family History Mother Diabetes mellitus Social History Social History Smoking status: Current some day smoker Tobacco type: cigars Alcohol intake: never Substance use: never Do You Feel Safe in your Home?: Yes Lack of Transportation: No Lack of Food: Never True Current Housing: I Have Housing Concerned About Future Housing: Decline to Answer Difficulty Paying Gas/Electric Bills: Decline to Answer Difficulty Paying for Meds: Decline to Answer Currently Unemployed: Decline to Answer Education: High School Diploma/GED Difficulty w/ Childcare or Family Care: Decline to Answer Spiritual care concerns: No Meds Home Medications and Allergies Home Medications ?Medication ?Instructions ?Recorded ?Confirmed ?Type benztropine 0.5 mg tablet 0.5 mg PO TID 05/26/23 11/26/24 History bimatoprost 0.01 % eye drops 1 drp EACH EYE HS 05/26/23 11/26/24 History (Virgilio) calcium carbonate 600 mg PO BID 05/26/23 11/26/24 History cholecalciferol (vitamin D3) 25 25 mcg PO DAILY 05/26/23 11/26/24 History mcg (1,000 unit) tablet divalproex 500 mg tablet,extended 500 mg PO BID 05/26/23 11/26/24 History release 24 hr folic acid 1 mg tablet 1 mg PO DAILY 05/26/23 11/26/24 History hydroxyzine pamoate 50 mg capsule 50 mg PO TID 05/26/23 11/26/24 History loratadine 10 mg tablet 10 mg PO DAILY 05/26/23 11/26/24 History lurasidone 120 mg tablet 120 mg PO DAILY 05/26/23 11/26/24 History sodium chloride 1,000 mg soluble 1,000 mg PO BID 05/26/23 11/26/24 History tablet venlafaxine 150 mg 150 mg PO DAILY 05/26/23 11/26/24 History capsule,extended release 24 hr ibuprofen 600 mg tablet 600 mg PO Q6H PRN fever or pain 06/20/23 11/26/24 Rx #30 tabs acetaminophen 325 mg tablet 650 mg PO Q4H PRN fever or pain 11/26/24 11/26/24 History aluminum-mag hydroxide-simethicone 30 ml PO Q4H PRN indigestion 11/26/24 11/26/24 History 400 mg-400 mg-40 mg/5 mL oral susp (Mylanta Maximum Strength) bisacodyl 5 mg tablet 10 mg PO DAILY PRN constipation 11/26/24 11/26/24 History bismuth subsalicylate 262 mg/15 mL 524 mg PO QID PRN diarrhea 11/26/24 11/26/24 History oral suspension (Diarrhea Relief (bismuth subsalicylate)) diphenhydramine HCl 25 mg capsule 25 mg PO Q6H PRN allergy symptoms 11/26/24 11/26/24 History (Banophen) docusate sodium 100 mg capsule 100 mg PO 0700,2100 11/26/24 11/26/24 History guaifenesin 100 mg/5 mL oral 200 mg PO Q4H PRN cough 11/26/24 11/26/24 History liquid (Chest Congestion Relief) ibuprofen 600 mg tablet (IBU) 600 mg PO Q6H PRN fever or pain 11/26/24 11/26/24 History risperidone 4 mg tablet 4 mg PO 0700,209911/26/24 11/26/24 History valacyclovir 1 gram tablet 1,000 mg PO Q12H 11/26/24 11/26/24 History Allergies Allergy/AdvReac Type Severity Reaction Status Date / Time Penicillins Allergy Unknown Unknown Verified 11/29/24 11:51 Vital Signs Vital Signs Temp Pulse Resp BP Pulse Ox O2 Del Method 11/28/24 12:00 97.3 F L 77 14 163/85 H 98 11/28/24 06:00 97.4 F L 82 16 143/77 H 94 11/27/24 21:28 97.4 F L 78 16 123/71 94 11/27/24 20:00 78 16 94 Room Air Exam 2 Narrative: GENERAL APPEARANCE: well developed well nourished male in no acute distress HEENT: normocephalic, atraumatic, normal conjunctiva and sclera, nares patient NECK: no lymphadenopathy, thyromegaly, or JVD MOUTH: normal lips, teeth, and gums CARDIOVASCULAR: RRR, normal S1 and S2, no rub RESPIRATORY: clear to auscultation bilaterally ABDOMEN: soft, nontender, nondistended, positive bowel sounds present EXTREMITIES: no evidence of cyanosis, clubbing, or edema NEUROLOGICAL: alert and oriented x 3; CN II - XII intact bilaterally; no focal deficits noted Results Lab Results 11/30/24 06:15 11/30/24 06:15 Lab results: Most recent lab results Calcium 9.2 mg/dL (8.4-10.2) 11/28/24 05:23 Magnesium 1.7 mg/dL (1.6-2.3) 11/28/24 05:23 Urine Creatinine 102.2 mg/dL 11/26/24 19:45
[2024-11-28 14:00] VITALS: BP 163/85; PULSE 77; RESP 14; TEMP 36.3; O2SAT 98
[2024-11-28] MEDS: CALCIUM CARBONATE (OSCAL) 500 MG TABLET PO (16:29)
--- NOTE | 2024-11-28 16:44 | P.PNIM_ITS ---
Progress Note: A&P Assessment and Plan (1) Fracture of femur, left, closed: Qualifiers: Encounter type: initial encounter Femur location: midcervical Fracture alignment: nondisplaced Qualified Code(s): S72.035A - Nondisplaced midcervical fracture of left femur, initial encounter for closed fracture Code(s): S72.92XA - Unspecified fracture of left femur, initial encounter for closed fracture Status: Acute Assessment and Plan: - GLF resulting in a nondisplaced transcervical fracture of the proximal left femur. - ortho consulted - analgesics prn - NPO at midnight - bed rest Currently on hold due to hyponatremia (2) Hyponatremia: Code(s): E87.1 - Hypo-osmolality and hyponatremia Status: Acute Assessment and Plan: - Na 122, previously 129 in 2022 - check serum osmolality, urine osmolality, urine sodium 81, protein to creatinine ratio 0.16, urine creatinine 1 O2 - bmp Q4H - reportedly chronic. on Risperidone, Lurasidone, Divalproex, Effexor, Benztropine which are likely contributing. patient also reportedly does not stick to his fluid restriction and will sneak water - trend renal function - NS at 150 mL/hr x1L received 11/26/2024 2:00 p.m. with worsening of sodium level indicating possibly SIADH. - continue NaCl tabs 1 gm BID Recheck sodium this afternoon. May need to add Lasix along with salt tablet. Nephrology consult Will check thyroid function and cortisol level random Plan Patient was plan for left hip surgery on 11/27 however it was postponed due to hyponatremia. today patient sodium is improving to 127, patient is scheduled to have left hip ORIF today, will follow up, Patient reports soreness in left hip. Denies any chest pain or shortness of breath. Diet: regular, fluid restriction GI Prophylaxis: NA DVT Prophylaxis: SCDs IV fluids: NS at 150 mL/hr x1L Lines/Tubes: peripheral IV Code Status: full code Subjective Date/time seen: 11/28/24 16:44 Interval history: Patient was plan for left hip surgery on 11/27 however it was postponed due to hyponatremia. today patient sodium is improving to 127, patient is scheduled to have left hip ORIF today, will follow up, Patient reports soreness in left hip. Denies any chest pain or shortness of breath. Review of Systems Review of Systems: All systems reviewed & are unremarkable except as noted in HPI and below Exam Narrative: Patient is comfortable, NAD HEENT: eyes are clear and none icteric LUNGS:CTA HEART: RR S1S2 ABD: BS+, Soft and nontender Lower extremities: no edema SKIN: nonjaundiced Neuro: grossly intact. Objective Data Vital Signs Vital Signs: Vital Signs - 24 hr 11/27/24 20:00 11/27/24 21:28 11/28/24 06:00 Temperature 36.3 C L 36.3 C L Pulse Rate 78 78 82 Respiratory Rate 16 16 16 Blood Pressure 123/71 143/77 H Pulse Oximetry 94 94 94 Oxygen Delivery Room Air 11/28/24 14:00 Temperature 36.3 C L Pulse Rate 77 Respiratory Rate 14 Blood Pressure 163/85 H Pulse Oximetry 98 Oxygen Delivery Intake/Output Intake/Output: Intake & Output 11/25/24 11/26/24 11/27/24 11/28/24 23:59 23:59 23:59 23:59 Intake Total 260 580 240 Output Total 1650 0 Balance 260 -1070 240 Meds/Results Medications: Active Medications Generic Name Dose Route Start Last Admin Trade Name Freq PRN Reason Stop Dose Admin Acetaminophen 650 mg 11/26/24 14:45 Acetaminophen 325 Mg Tablet PO Q6H PRN Mild Pain (1-3) or Fever Hydrocodone Bitart/Acetaminophen 1 tab 11/26/24 14:45 11/28/24 16:29 Hydrocodone/Acetaminophen (*Crx) 5-325 Mg Tablet PO 1 tab Q6H PRN Administration Pain Rated 4-6 Al Hydrox/Mg Hydrox/Simethicone 30 ml 11/26/24 21:26 Mag Hydrox/Al Hydrox/Simeth 30 Ml Udc PO Q4H PRN Indigestion Benztropine Mesylate 0.5 mg 11/26/24 21:25 11/28/24 16:29 Benztropine Mesylate 0.5 Mg Tablet PO 0.5 mg 0700,1730,2100 DIANE Administration Bisacodyl 10 mg 11/26/24 21:18 Bisacodyl 5 Mg Tablet Ec PO DAILY PRN constipation Bismuth Subsalicylate 524 mg 11/26/24 21:30 Bismuth Subsalicylate 262 Mg Chewable Tablet PO QID PRN diarrhea Calcium Carbonate 500 mg 11/27/24 09:00 11/28/24 16:29 Calcium Carbonate (Oscal) 500 Mg Tablet PO 500 mg BID DIANE Administration Diphenhydramine HCl 25 mg 11/26/24 21:18 11/27/24 09:28 Diphenhydramine Hcl Cap 25 Mg Capsule PO 25 mg Q6H PRN Administration allergy symptoms Divalproex Sodium 500 mg 11/26/24 21:25 11/28/24 08:21 Divalproex Sodium Er 500 Mg Tab.24h PO 500 mg Q12HR DIANE Administration Docusate Sodium 100 mg 11/26/24 21:25 11/28/24 06:00 Docusate Sodium 100 Mg Capsule PO 100 mg 07,2099 DIANE Administration Fentanyl Citrate 25 mcg 11/26/24 14:45 Fentanyl Citrate Inj (*Crx) 100 Mcg/2 Ml Vial IV PUSH Q4H PRN Pain Rated 7-10 Folic Acid 1 mg 11/27/24 09:00 11/28/24 08:23 Folic Acid 1 Mg Tablet PO Not Given DAILY DIANE Guaifenesin 200 mg 11/26/24 21:18 Guaifenesin 200 Mg/10 Ml Udc PO Q4H PRN cough Hydroxyzine Pamoate 50 mg 11/27/24 09:00 11/28/24 16:29 Hydroxyzine Pamoate 25 Mg Capsule PO 50 mg TID DIANE Administration Lactated Ringer's 1,000 mls @ 30 mls/hr 11/27/24 07:25 Lr - Lactated Ringers Iv IV CONT .Q24H DIANE Latanoprost 1 drop 11/26/24 21:30 11/27/24 22:01 Latanoprost 0.005% Op Soln 2.5 Ml Btl EACH EYE 1 drop HS DIANE Administration Nonformulary Drug 0 mg 11/27/24 09:00 11/28/24 08:22 Lurasidone 40 Mg PO 12/27/24 08:59 120 mg Tablet DAILY DIANE Administration Risperidone 4 mg 11/26/24 21:30 11/28/24 06:00 Risperidone 1 Mg Tablet PO 4 mg 0700,2100 DIANE Administration Sodium Chloride 1 gm 11/27/24 09:00 11/28/24 16:29 Sodium Chloride 1 Gm Tablet PO 1 gm BID DIANE Administration Valacyclovir HCl 1,000 mg 11/26/24 21:20 11/28/24 08:24 Valacyclovir Hcl 500 Mg Tablet PO Not Given Q12HR DIANE Venlafaxine HCl 150 mg 11/27/24 07:00 11/28/24 06:00 Venlafaxine Hcl Xr 75 Mg Cap.Er.24h PO 150 mg DAILY@0700 [facility] Administration Vitamin D 25 mcg 11/27/24 09:00 11/28/24 08:23 Cholecalciferol (Vitamin D3) 25 Mcg (1,000 Units) Tablet PO Not Given DAILY [facility] Radiology Results: ITS Impressions Cervical Spine CT 11/26/24 11:48 IMPRESSION: 1. Mild cervical spondylosis and chronic appearing mild T2 compression fracture. No acute osseous abnormality. Head CT 11/26/24 11:54 IMPRESSION: No acute intracranial findings. Chest X-Ray 11/26/24 12:26 IMPRESSION: No acute cardiopulmonary pathology. Hip/Pelvis X-Ray 11/26/24 12:33 IMPRESSION: 1. Nondisplaced transcervical fracture of the proximal left femur. Labs Labs: Laboratory Results - last 24 hr 11/27/24 11/28/24 11/28/24 22:41 00:21 05:23 WBC 10.8 H RBC 3.69 L Hgb 12.0 L Hct 34.5 L MCV 93.5 MCH 32.5 MCHC 34.8 RDW 14.1 Plt Count 166 MPV 9.5 Immature Gran % (Auto) 0.3 Neut % (Auto) 76.7 H Lymph % (Auto) 13.[address] [place] % (Auto) 9.0 H Eos % (Auto) 0.3 Baso % (Auto) 0.2 Lymph # (Auto) 1.46 [facility] [place] [facility] # (Auto) 1.0 H Eos # (Auto) 0.0 Baso # (Auto) 0.0 Abs Immat Gran (auto) 0.03 Absolute Neuts (auto) 8.3 H Absolute Nucleated RBC 0.000 Nucleated RBC % 0.0 Sodium 126 L 126 L 127 L Potassium 4.0 Chloride 94 L Carbon Dioxide 28 Anion Gap 5 BUN 10 Creatinine 0.78 Estim Creat Clear Calc 97 Estimated GFR > 60 Glucose 107 Calcium 9.2 Magnesium 1.7 Total Bilirubin 0.3 AST 27 ALT 15 Alkaline Phosphatase 55 Total Protein 6.2 L Albumin 3.5 11/28/24 11:58 WBC RBC Hgb Hct MCV MCH MCHC RDW Plt Count MPV Immature Gran % (Auto) Neut % (Auto) Lymph % (Auto) [facility] [place] [facility] % (Auto) Eos % (Auto) Baso % (Auto) Lymph # (Auto) [facility] # (Auto) Eos # (Auto) Baso # (Auto) Abs Immat Gran (auto) Absolute Neuts (auto) Absolute Nucleated RBC Nucleated RBC % Sodium 127 L Potassium Chloride Carbon Dioxide Anion Gap BUN Creatinine Estim Creat Clear Calc Estimated GFR Glucose Calcium Magnesium Total Bilirubin AST ALT Alkaline Phosphatase Total Protein Albumin Quality VTE Prophylaxis VTE prophylaxis: mechanical ordered
[2024-11-28 20:50] VITALS: PULSE 79; RESP 12; O2SAT 97
[2024-11-28] MEDS: LATANOPROST 0.005% OP SOLN 2.5 ML BTL 1 DROP EACH EYE (21:00)
[2024-11-28 21:58] VITALS: BP 135/88; PULSE 79; RESP 12; TEMP 36.3; O2SAT 97
[2024-11-29] VITALS (19 sets, daily range): BP systolic 105–148; BP diastolic 67–86; PULSE 71–86; RESP 8–17; TEMP 35.2–36.6; O2SAT 90–100
[2024-11-29] MEDS: HYDROcodone/acetaminophen (*CRX) 5-325 MG TABLET 1 TAB PO (06:00)
[2024-11-29] MEDS: VENLAFAXINE HCL XR 75 MG CAP.ER.24H 150 MG PO (06:01)
[2024-11-29] MEDS: BENZTROPINE MESYLATE 0.5 MG TABLET PO ×3 (06:01→20:33)
[2024-11-29] MEDS: DOCUSATE SODIUM 100 MG CAPSULE PO ×2 (06:01→20:33)
[2024-11-29 06:05] LABS: Hematocrit 36.8 % (42.0-52.0); Hemoglobin 12.4 g/dL (14.0-18.0); Mean Corpuscular HGB Conc 33.7 g/dl (32-36); Mean Corpuscular Hemoglobin 32.1 pg (26-34); Mean Corpuscular Volume 95.3 fl (80-100); Platelet Count Result 160 k/mm3 (150-375); Red Blood Count 3.86 M/mm3 (4.6-6.20); White Blood Count 9.0 K/mm3 (4.5-10.0)
[2024-11-29 06:37] LABS: Anion Gap 6 mmol/L (4-12); Blood Urea Nitrogen 13 mg/dL (9-20); Calcium 9.1 mg/dL (8.4-10.2); Carbon Dioxide 30 mmol/L (22-30); Chloride 92 mmol/L (98-107); Estimated CRCL calculation 98 ml/min; Estimated Glomerular Filt Rate > 60; Glucose 94 mg/dL (65-110); Magnesium 1.7 mg/dL (1.6-2.3); Potassium 4.3 mmol/L (3.4-5.0); Sodium 128 mmol/L (137-145)
--- NOTE | 2024-11-29 06:38 | P.PNCROSS_ITS ---
Event Note Event Note Event Note: Notified by nursing staff patient appeared very groggy likely due to narcotic a dministration for pain due to fracture. Patient evaluated shortly thereafter however nurse and patient report he is looking much better. Drowsy but alert and fully protecting his airway. Placed on telemetry and continuous pulse oximetry. These can be removed as he continues to improve. He is sitting up in bed upright. Pain medications placed on hold for now. Narcan p.r.n. ordered. Neuro checks ordered.
--- NOTE | 2024-11-29 07:15 | WPDHPUPDATE1 ---
History and Physical Update Update Date/Time: 11/29/24 07:15 History and Physical has been reviewed, including an updated exam of the patient. There are NO changes in the patient's condition. Risks, benefits, and alternatives have been discussed and questions answered. Patient agrees to proceed with procedure.
[2024-11-29] MEDS: NALOXONE HCL 0.4 MG/ML VIAL 0.1 MG IV PUSH ×3 (07:37→08:04)
[2024-11-29] MEDS: CHOLECALCIFEROL (VITAMIN D3) 25 MCG (1,000 UNITS) TABLET PO (08:32)
[2024-11-29] MEDS: FOLIC ACID 1 MG TABLET PO (08:32)
[2024-11-29] MEDS: DIVALPROEX SODIUM ER 500 MG TAB.24H PO ×2 (08:32→20:33)
[2024-11-29] MEDS: SODIUM CHLORIDE 1 GM TABLET PO ×2 (08:32→17:41)
[2024-11-29] MEDS: CALCIUM CARBONATE (OSCAL) 500 MG TABLET PO ×2 (08:32→17:41)
[2024-11-29] MEDS: LURASIDONE 40 MG PO (10:17)
[2024-11-29] MEDS: [UNRECOGNIZED DRUG - OTHER] PO (10:17)
[2024-11-29 11:08] LABS: Osmolality, Urine 545 mOsmol/kg (.)
[2024-11-29] MEDS: LACTATED RINGERS 1,000 ML 30 ML IV CONT (11:30)
--- NOTE | 2024-11-29 11:39 | WPDANESEPPF ---
Anes - Initial Pre Proc Eval Procedure: Operation Date: 11/29/24 12:30 Proposed Procedures p Left Hip Pinning with Cannulated Screws - Tyron Hancock MD Date/Time: 11/29/24 11:39 Surgeon: Herbie Kerr MD Pre Op Diagnosis: Proximal Femur Fracture Patient Data Age: 59 Gender: M Height: 1.83 m Weight: 82.1 kg Last Vital Signs Temp 36.3 C L 11/29/24 05:47 Pulse 71 11/29/24 08:04 Resp 8 L 11/29/24 08:04 BP 123/71 11/29/24 07:51 Pulse Ox 94 11/29/24 07:51 O2 Del Method Room Air 11/29/24 08:00 Allergies Allergy/AdvReac Type Severity Reaction Status Date / Time Penicillins Allergy Unknown Unknown Verified 05/26/23 13:36 Home Medications ?Medication ?Instructions ?Recorded ?Confirmed ?Type benztropine 0.5 mg tablet 0.5 mg PO TID 05/26/23 11/26/24 History bimatoprost 0.01 % eye drops 1 drp EACH EYE HS 05/26/23 11/26/24 History (Lumigan) calcium carbonate 600 mg PO BID 05/26/23 11/26/24 History cholecalciferol (vitamin D3) 25 25 mcg PO DAILY 05/26/23 11/26/24 History mcg (1,000 unit) tablet divalproex 500 mg tablet,extended 500 mg PO BID 05/26/23 11/26/24 History release 24 hr folic acid 1 mg tablet 1 mg PO DAILY 05/26/23 11/26/24 History hydroxyzine pamoate 50 mg capsule 50 mg PO TID 05/26/23 11/26/24 History loratadine 10 mg tablet 10 mg PO DAILY 05/26/23 11/26/24 History lurasidone 120 mg tablet 120 mg PO DAILY 05/26/23 11/26/24 History sodium chloride 1,000 mg soluble 1,000 mg PO BID 05/26/23 11/26/24 History tablet venlafaxine 150 mg 150 mg PO DAILY 05/26/23 11/26/24 History capsule,extended release 24 hr ibuprofen 600 mg tablet 600 mg PO Q6H PRN fever or pain 06/20/23 11/26/24 Rx #30 tabs acetaminophen 325 mg tablet 650 mg PO Q4H PRN fever or pain 11/26/24 11/26/24 History aluminum-mag hydroxide-simethicone 30 ml PO Q4H PRN indigestion 11/26/24 11/26/24 History 400 mg-400 mg-40 mg/5 mL oral susp (Mylanta Maximum Strength) bisacodyl 5 mg tablet 10 mg PO DAILY PRN constipation 11/26/24 11/26/24 History bismuth subsalicylate 262 mg/15 mL 524 mg PO QID PRN diarrhea 11/26/24 11/26/24 History oral suspension (Diarrhea Relief (bismuth subsalicylate)) diphenhydramine HCl 25 mg capsule 25 mg PO Q6H PRN allergy symptoms 11/26/24 11/26/24 History (Banophen) docusate sodium 100 mg capsule 100 mg PO 0700,2100 11/26/24 11/26/24 History guaifenesin 100 mg/5 mL oral 200 mg PO Q4H PRN cough 11/26/24 11/26/24 History liquid (Chest Congestion Relief) ibuprofen 600 mg tablet (IBU) 600 mg PO Q6H PRN fever or pain 11/26/24 11/26/24 History risperidone 4 mg tablet 4 mg PO 0700,209911/26/24 11/26/24 History valacyclovir 1 gram tablet 1,000 mg PO Q12H 11/26/24 11/26/24 History Laboratory Tests 11/26/24 11/28/24 11/29/24 19:45 11:58 01:23 WBC RBC Hgb Hct MCV MCH MCHC RDW Plt Count MPV Sodium 127 L mmol/L (137-145) Potassium Chloride Carbon Dioxide Anion Gap BUN Creatinine Estim Creat Clear Calc Estimated GFR Glucose Calcium Phosphorus Magnesium Urine Osmolality 545 mOsmol/kg (.) Ur Random Creatinine U Random Total Protein Protein/Creatinin Ratio Urine Total Protein Pending Urine Albumin (PEP) Pending Urine Albumin U [id number] Pending U [id number] Pending U Beta Globulin Pending U Gamma Globulin Pending U Random M-Eliezer (%) Pending U Abnormal Prot Band 1 U Abnormal Prot Band 2 U Abnormal Prot Band 3 Urine PEP Interpret 11/29/24 11/29/24 11/29/24 01:24 05:35 05:35 WBC 9.0 K/mm3 (4.5-10.0) RBC 3.86 L M/mm3 (4.6-6.20) Hgb 12.4 L g/dL (14.0-18.0) Hct 36.8 L % (42.0-52.0) MCV 95.3 fl (80-100) MCH 32.1 pg (26-34) MCHC 33.7 g/dl (32-36) RDW 14.4 % (11.5-14.5) Plt Count 160 k/mm3 (150-375) MPV 9.6 fl (7.4-10.4) Sodium 128 L mmol/L (137-145) Potassium 4.3 mmol/L (3.4-5.0) Chloride 92 L mmol/L (98-107) Carbon Dioxide 30 mmol/L (22-30) Anion Gap 6 mmol/L (4-12) BUN 13 mg/dL (9-20) Creatinine 0.77 mg/dL (0.7-1.3) Estim Creat Clear Calc 98 ml/min Estimated GFR > 60 (59 - ) Glucose 94 mg/dL (65-110) Calcium 9.1 mg/dL (8.4-10.2) Phosphorus 3.8 mg/dL Cancelled (2.5-4.5) Magnesium 1.7 mg/dL (1.6-2.3) Urine Osmolality Ur Random Creatinine Cancelled U Random Total Protein Cancelled Protein/Creatinin Ratio Cancelled Urine Total Protein Urine Albumin (PEP) Urine Albumin Cancelled U [id number] Cancelled U [id number] Cancelled U Beta Globulin Cancelled U Gamma Globulin Cancelled U Random M-Eliezer (%) U Abnormal Prot Band 1 Cancelled U Abnormal Prot Band 2 Cancelled U Abnormal Prot Band 3 Cancelled Urine PEP Interpret Cancelled Patient hx anesthesia problems: none Family hx anesthesia problems: none Results Review: All pre-operative results and documents have been reviewed as part of the pre-operative evaluation. [facility] Past Medical History Medical History (Updated 11/26/24 @ 21:17 by Tarsha Velásquez APRN) Glaucoma Autism spectrum disorder Bipolar 1 disorder Surgical History Surgical History (Updated 11/26/24 @ 21:17 by Tarsha Velásquez APRN) History of appendectomy Family History Family History Mother Diabetes mellitus Social History Social History Smoking status: Current some day smoker Tobacco type: cigars Alcohol intake: never Substance use: never Do You Feel Safe in your Home?: Yes Lack of Transportation: No Lack of Food: Never True Current Housing: I Have Housing Concerned About Future Housing: Decline to Answer Difficulty Paying Gas/Electric Bills: Decline to Answer Difficulty Paying for Meds: Decline to Answer Currently Unemployed: Decline to Answer Education: High School Diploma/GED Difficulty w/ Childcare or Family Care: Decline to Answer Spiritual care concerns: No Anes - Eval Final PreProcedure Day of Procedure 11/29/24 11:39 Patient weight: normal Heart: regular rate and rhythm Lungs: clear to auscultation Airway: Mallampati scale class III Neurological: alert and oriented Last oral intake: >/= 8 hours ASA classification: III Emergent: no Anesthetic plan: proceed Anesthesia type and monitoring: general LMA and standard monitoring Results Review: All pre-operative results and documents have been reviewed as part of the pre-operative evaluation. Informed Consent: The patient's anesthetic plan and its attendant risks and benefits were discussed with the patient/family/POA. Questions were solicited and answers provided to the satisfaction of the patient/family/POA.
--- NOTE | 2024-11-29 13:19 | P.OP_ITS ---
Procedure Note - Detailed Date of Procedure 11/29/24 Pre-op Diagnosis Femoral neck fracture left, valgus impacted. Post-op Diagnosis Same Procedure Performed Percutaneous pinning left hip with 3 cannulated screws. Surgeon Tyron Hancock MD Anesthesia General Findings Valgus impaction, minimal displacement. Excellent bone quality. Description of Procedure Preoperative antibiotics were given. The patient was brought to the operating room. In general anesthetic was administered. The patient was carefully placed on the fracture table. By planar fluoroscopy was used to confirm maintenance of reduction and treatment of reduction as necessary. The hip was prepped and draped in usual sterile fashion with a sterile curtain. A stab incision was created at the inferior trochanter. The guide pin was placed into the center of the femoral neck inferiorly. Two additional guide pins were placed superiorly were inverted triangle shape. Measurements were taken and the outer cortex was drilled. Three partially-threaded cannulated screws were placed. The crease incisions were closed with interrupted 4-0 Monocryl suture followed by Steri- Strips. The sterile dressing was applied. The patient was transferred to the recovery room in stable condition and extubated. There were no complications. Implants Synthes 7.3 mm cannulated screws x 3. Partially threaded (long). 95mm and 90mm x 2. Estimated Blood Loss 5 Urine Output 0 Drains No Packing No Pathology None sent Complications No immediate complications Condition Stable Disposition PACU [facility] Billing Surgery - Charge Forward: Surgery Billing
--- NOTE | 2024-11-29 13:36 | PM.IMPN ---
Progress Note: A&P Assessment and Plan (1) Fracture of femur, left, closed: Code(s): S72.92XA - Unspecified fracture of left femur, initial encounter for closed fracture Status: Acute Assessment and Plan: - GLF resulting in a nondisplaced transcervical fracture of the proximal left femur. - ortho consulted - analgesics prn - NPO at midnight - bed rest Currently on hold due to hyponatremia (2) Hyponatremia: Code(s): E87.1 - Hypo-osmolality and hyponatremia Status: Acute Assessment and Plan: - Na 122, previously 129 in 2022 - check serum osmolality, urine osmolality, urine sodium 81, protein to creatinine ratio 0.16, urine creatinine 1 O2 - bmp Q4H - reportedly chronic. on Risperidone, Lurasidone, Divalproex, Effexor, Benztropine which are likely contributing. patient also reportedly does not stick to his fluid restriction and will sneak water - trend renal function - NS at 150 mL/hr x1L received 11/26/2024 2:00 p.m. with worsening of sodium level indicating possibly SIADH. - continue NaCl tabs 1 gm BID Recheck sodium this afternoon. May need to add Lasix along with salt tablet. Nephrology consult Will check thyroid function and cortisol level random Plan Patient was plan for left hip surgery on 11/28 however it was postponed due to hyponatremia 2/2 patient psych medications reportedly chronic. on Risperidone, Lurasidone, Divalproex, Effexor, Benztropine which are likely contributing. patient also reportedly does not stick to his fluid restriction and will sneak water, today patient sodium is improving to 128, patient is scheduled to have left hip ORIF today, will follow up, Patient reports soreness in left hip. Denies any chest pain or shortness of breath. patient was somnolent this morning most likely due to pain medications as patient responded to Narcan, will patient pain medication, and follow, Diet: regular, fluid restriction GI Prophylaxis: NA DVT Prophylaxis: SCDs IV fluids: NS at 150 mL/hr x1L Lines/Tubes: peripheral IV Code Status: full code Subjective Date/time seen: 11/29/24 13:36 Interval history: Patient was plan for left hip surgery on 11/28 however it was postponed due to hyponatremia 2/2 patient psych medications reportedly chronic. on Risperidone, Lurasidone, Divalproex, Effexor, Benztropine which are likely contributing. patient also reportedly does not stick to his fluid restriction and will sneak water, today patient sodium is improving to 128, patient is scheduled to have left hip ORIF today, will follow up, Patient reports soreness in left hip. Denies any chest pain or shortness of breath. patient was somnolent this morning most likely due to pain medications as patient responded to Narcan, will patient pain medication, and follow, Review of Systems Review of Systems: All systems reviewed & are unremarkable except as noted in HPI and below Exam Narrative: Patient is comfortable, NAD HEENT: eyes are clear and none icteric LUNGS:CTA HEART: RR S1S2 ABD: BS+, Soft and nontender Lower extremities: no edema SKIN: nonjaundiced Neuro: grossly intact. Objective Data Vital Signs Vital Signs: Vital Signs - 24 hr 11/28/24 14:00 11/28/24 20:50 11/28/24 21:58 Temperature 36.3 C L 36.3 C L Pulse Rate 77 79 79 Respiratory Rate 14 12 12 Blood Pressure 163/85 H 135/88 Pulse Oximetry 98 97 97 Oxygen Delivery Room Air Oxygen Flow Rate 11/29/24 05:47 11/29/24 07:35 11/29/24 07:51 Temperature 36.3 C L Pulse Rate 73 79 75 Respiratory Rate 12 8 L 8 L Blood Pressure 143/80 H 115/67 123/71 Pulse Oximetry 97 94 94 Oxygen Delivery Oxygen Flow Rate 11/29/24 08:00 11/29/24 08:00 11/29/24 08:04 Temperature Pulse Rate 71 71 Respiratory Rate 8 L Blood Pressure Pulse Oximetry Oxygen Delivery Room Air Oxygen Flow Rate 11/29/24 11:30 11/29/24 13:28 Temperature 35.7 C L 36.6 C Pulse Rate 78 73 Respiratory Rate 16 8 L Blood Pressure 129/69 129/77 Pulse Oximetry 94 100 Oxygen Delivery Room Air Simple Face Mask Oxygen Flow Rate 8 Intake/Output Intake/Output: Intake & Output 11/26/24 11/27/24 11/28/24 11/29/24 23:59 23:59 23:59 23:59 Intake Total 260 580 480 699 Output Total 1650 600 0 Balance 260 -1070 -120 699 Meds/Results Medications: Active Medications Generic Name Dose Route Start Last Admin Trade Name Martinq PRN Reason Stop Dose Admin Acetaminophen 650 mg 11/26/24 14:45 Acetaminophen 325 Mg Tablet PO Q6H PRN Mild Pain (1-3) or Fever Hydrocodone Bitart/Acetaminophen 1 tab 11/26/24 14:45 11/29/24 06:00 Hydrocodone/Acetaminophen (*Crx) 5-325 Mg Tablet PO 1 tab Q6H PRN Administration Pain Rated 4-6 Al Hydrox/Mg Hydrox/Simethicone 30 ml 11/26/24 21:26 Mag Hydrox/Al Hydrox/Simeth 30 Ml Udc PO Q4H PRN Indigestion Benztropine Mesylate 0.5 mg 11/26/24 21:25 11/29/24 06:01 Benztropine Mesylate 0.5 Mg Tablet PO 0.5 mg 0700,1730,2100 DIANE Administration Bisacodyl 10 mg 11/26/24 21:18 Bisacodyl 5 Mg Tablet Ec PO DAILY PRN constipation Bismuth Subsalicylate 524 mg 11/26/24 21:30 Bismuth Subsalicylate 262 Mg Chewable Tablet PO QID PRN diarrhea Calcium Carbonate 500 mg 11/27/24 09:00 11/29/24 08:32 Calcium Carbonate (Oscal) 500 Mg Tablet PO 500 mg BID DIANE Administration Diphenhydramine HCl 25 mg 11/26/24 21:18 11/27/24 09:28 Diphenhydramine Hcl Cap 25 Mg Capsule PO 25 mg Q6H PRN Administration allergy symptoms Divalproex Sodium 500 mg 11/26/24 21:25 11/29/24 08:32 Divalproex Sodium Er 500 Mg Tab.24h PO 500 mg Q12HR DIANE Administration Docusate Sodium 100 mg 11/26/24 21:25 11/29/24 06:01 Docusate Sodium 100 Mg Capsule PO 100 mg 0700,2100 DIANE Administration Fentanyl Citrate 25 mcg 11/26/24 14:45 Fentanyl Citrate Inj (*Crx) 100 Mcg/2 Ml Vial IV PUSH Q4H PRN Pain Rated 7-10 Fentanyl Citrate 25 mcg 11/29/24 11:43 Fentanyl Citrate Inj (*Crx) 100 Mcg/2 Ml Vial IV PUSH Q2M PRN Pain Folic Acid 1 mg 11/27/24 09:00 11/29/24 08:32 Folic Acid 1 Mg Tablet PO 1 mg DAILY DIANE Administration Guaifenesin 200 mg 11/26/24 21:18 Guaifenesin 200 Mg/10 Ml Udc PO Q4H PRN cough Hydroxyzine Pamoate 50 mg 11/27/24 09:00 11/28/24 16:29 Hydroxyzine Pamoate 25 Mg Capsule PO 50 mg TID DIANE Administration Lactated Ringer's 1,000 mls @ 30 mls/hr 11/29/24 11:45 11/29/24 13:28 Lr - Lactated Ringers Iv IV CONT 30 mls/hr .Q24H DIANE Infusion Lactated Ringer's 1,000 mls @ 30 mls/hr 11/29/24 11:45 Lr - Lactated Ringers Iv IV CONT .Q24H DIANE Latanoprost 1 drop 11/26/24 21:30 11/28/24 21:00 Latanoprost 0.005% Op Soln 2.5 Ml Btl EACH EYE 1 drop HS DIANE Administration Naloxone HCl 0.1 mg 11/29/24 06:24 11/29/24 08:04 Naloxone Hcl 0.4 Mg/Ml Vial IV PUSH 0.1 mg Q5MIN PRN Administration somnolence Nonformulary Drug 0 mg 11/27/24 09:00 11/29/24 10:17 Lurasidone 40 Mg PO 12/27/24 08:59 120 mg Tablet DAILY DIANE Administration Ondansetron HCl 4 mg 11/29/24 11:43 Ondansetron Inj 4 Mg/2 Ml Vial IV PUSH ONCE PRN Nausea Risperidone 4 mg 11/26/24 21:30 11/29/24 06:01 Risperidone 1 Mg Tablet PO 4 mg 0700,2100 DIANE Administration Sodium Chloride 1 gm 11/27/24 09:00 11/29/24 08:32 Sodium Chloride 1 Gm Tablet PO 1 gm BID DIANE Administration Valacyclovir HCl 1,000 mg 11/26/24 21:20 11/29/24 08:32 Valacyclovir Hcl 500 Mg Tablet PO 1,000 mg Q12HR DIANE Administration Venlafaxine HCl 150 mg 11/27/24 07:00 11/29/24 06:01 Venlafaxine Hcl Xr 75 Mg Cap.Er.24h PO 150 mg DAILY@0700 DIANE Administration Vitamin D 25 mcg 11/27/24 09:00 11/29/24 08:32 Cholecalciferol (Vitamin D3) 25 Mcg (1,000 Units) Tablet PO 25 mcg DAILY DIANE Administration Radiology Results: ITS Impressions Cervical Spine CT 11/26/24 11:48 IMPRESSION: 1. Mild cervical spondylosis and chronic appearing mild T2 compression fracture. No acute osseous abnormality. Head CT 11/26/24 11:54 IMPRESSION: No acute intracranial findings. Chest X-Ray 11/26/24 12:26 IMPRESSION: No acute cardiopulmonary pathology. Hip/Pelvis X-Ray 11/26/24 12:33 IMPRESSION: 1. Nondisplaced transcervical fracture of the proximal left femur. Labs Labs: Laboratory Results - last 24 hr 11/26/24 11/29/24 11/29/24 19:45 01:24 05:35 WBC 9.0 RBC 3.86 L Hgb 12.4 L Hct 36.8 L MCV 95.3 MCH 32.1 MCHC 33.7 RDW 14.4 Plt Count 160 MPV 9.6 Sodium 128 L Potassium 4.3 Chloride 92 L Carbon Dioxide 30 Anion Gap 6 BUN 13 Creatinine 0.77 Estim Creat Clear Calc 98 Estimated GFR > 60 Glucose 94 Calcium 9.1 Phosphorus 3.8 Magnesium Urine Osmolality 545 Ur Random Creatinine Cancelled U Random Total Protein Cancelled Protein/Creatinin Ratio Cancelled Urine Albumin Cancelled U [id number] Cancelled U Enzzl-9-Itpyvwux Cancelled U Beta Globulin Cancelled U Gamma Globulin Cancelled U Abnormal Prot Band 1 Cancelled U Abnormal Prot Band 2 Cancelled U Abnormal Prot Band 3 Cancelled Urine PEP Interpret Cancelled 11/29/24 05:35 WBC RBC Hgb Hct MCV MCH MCHC RDW Plt Count MPV Sodium Potassium Chloride Carbon Dioxide Anion Gap BUN Creatinine Estim Creat Clear Calc Estimated GFR Glucose Calcium Phosphorus Cancelled Magnesium 1.7 Urine Osmolality Ur Random Creatinine U Random Total Protein Protein/Creatinin Ratio Urine Albumin U Frhue-0-Qgjovfva U Sxtkv-9-Pcjnkqfu U Beta Globulin U Gamma Globulin U Abnormal Prot Band 1 U Abnormal Prot Band 2 U Abnormal Prot Band 3 Urine PEP Interpret Quality VTE Prophylaxis VTE prophylaxis: mechanical ordered
--- NOTE | 2024-11-29 14:22 | P.PNNP_ITS ---
Progress Note: A&P Assessment and Plan (1) Hyponatremia: Code(s): E87.1 - Hypo-osmolality and hyponatremia Status: Acute Assessment and Plan: * acute on chronic * has been present as far back as 2018 if not longer -- seems to average ~ 127 - 133mmol/L * 130mmol/L in April 2024 * 129mmol/L in January 2023 (by [facility] records) * 127mmol/L in December 2022 * 133mmol/L in July 2018 * on salt tablets as an outpatient * chronic issue from: * psychiatric medications (risperidone, lurasidone, & effexor) * excessive free water intake * smoking history * acute issue from: * pain * pain medications * prerenal factors * evaluation to date noted: * serum/urine osmolality pending * urine electrolytes pre-renal * TSH okay * cortisol reasonable * checking SPEP/UPEP * improvement in sodium with salt tablets and fluid restriction * consider adding low dose lasix * will increase fluid restriction to 1500cc/day * follow trend of repeat sodium levels (2) Fracture of femur, left, closed: Qualifiers: Encounter type: initial encounter Femur location: midcervical Fracture alignment: nondisplaced Qualified Code(s): S72.035A - Nondisplaced midcervical fracture of left femur, initial encounter for closed fracture Code(s): S72.92XA - Unspecified fracture of left femur, initial encounter for closed fracture Status: Acute Plan * X-ray imaging noted: * non-displaced femoral neck fracture with impaction. * Orthopedic Surgery following * s/p percutaneous pinning left hip with 3 cannulated screws (on 11/29) * anticipate 4-6 weeks rehab with PWB using a walker * local wound care * PT/OT as tolerated Will continue to follow L Subjective Date/time seen: 11/29/24 14:22 Interval history: Follow-up for acute on chronic hyponatremia. Just back to room following operative intervention (pinning of left hip due to fracture) -- apparently tolerated the procedure reasonably well; was apparently more lethargic/somnolent this AM presumably secondary to pain medications as improved following narcan and supportive therapy; sodium level improving with current therapy/interventions. Exam 2 Narrative: General: WD/WN male in NAD Heart: normal S1 and S2; no rub Lungs: clear to auscultation Abdomen: soft, nontender, nondistended, positive bowel sounds Extremities: no cyanosis or clubbing; no edema Skin: warm and dry Objective Data Vital Signs Vital Signs: Vital Signs Temp Pulse Resp BP Pulse Ox O2 Del Method O2 Flow Rate 11/29/24 14:20 96.4 F L 86 16 124/67 95 11/29/24 14:10 81 12 136/74 95 Room Air 11/29/24 13:55 82 12 148/86 H 95 Room Air 11/29/24 13:40 77 12 147/86 H 100 Simple Face Mask 8 11/29/24 13:28 97.8 F 73 8 L 129/77 100 Simple Face Mask 8 11/29/24 11:30 96.3 F L 78 16 129/69 94 Room Air 11/29/24 08:04 71 8 L 11/29/24 08:00 71 11/29/24 08:00 Room Air 11/29/24 07:51 75 8 L 123/71 94 11/29/24 07:35 79 8 L 115/67 94 11/29/24 05:47 97.3 F L 73 12 143/80 H 97 11/28/24 21:58 97.3 F L 79 12 135/88 97 11/28/24 20:50 79 12 97 Room Air Intake/Output Intake/Output: Intake & Output 11/26/24 11/27/24 11/28/24 11/29/24 23:59 23:59 23:59 23:59 Intake Total 260 580 480 699 Output Total 1650 600 0 Balance 260 -1070 -120 699 Meds/Results Medications: Active Medications Generic Name Dose Route Start Last Admin Trade Name Freq PRN Reason Stop Dose Admin Acetaminophen 650 mg 11/26/24 14:45 Acetaminophen 325 Mg Tablet PO Q6H PRN Fever Acetaminophen 500 mg 11/29/24 14:32 Acetaminophen 500 Mg Tablet PO Q6H PRN Pain Rated 1-3 Al Hydrox/Mg Hydrox/Simethicone 30 ml 11/26/24 21:26 Mag Hydrox/Al Hydrox/Simeth 30 Ml Udc PO Q4H PRN Indigestion Aspirin 81 mg 11/29/24 17:00 Aspirin 81 Mg Enteric Tablet PO BID DIANE Benztropine Mesylate 0.5 mg 11/26/24 21:25 11/29/24 06:01 Benztropine Mesylate 0.5 Mg Tablet PO 0.5 mg 0700,1730,2100 DIANE Administration Bisacodyl 10 mg 11/26/24 21:18 Bisacodyl 5 Mg Tablet Ec PO DAILY PRN constipation Bismuth Subsalicylate 524 mg 11/26/24 21:30 Bismuth Subsalicylate 262 Mg Chewable Tablet PO QID PRN diarrhea Calcium Carbonate 500 mg 11/27/24 09:00 11/29/24 08:32 Calcium Carbonate (Oscal) 500 Mg Tablet PO 500 mg BID DIANE Administration Divalproex Sodium 500 mg 11/26/24 21:25 11/29/24 08:32 Divalproex Sodium Er 500 Mg Tab.24h PO 500 mg Q12HR DIANE Administration Docusate Sodium 100 mg 11/26/24 21:25 11/29/24 06:01 Docusate Sodium 100 Mg Capsule PO 100 mg 0700,2100 DIANE Administration Folic Acid 1 mg 11/27/24 09:00 11/29/24 08:32 Folic Acid 1 Mg Tablet PO 1 mg DAILY DIANE Administration Guaifenesin 200 mg 11/26/24 21:18 Guaifenesin 200 Mg/10 Ml Udc PO Q4H PRN cough Hydromorphone HCl 1 mg 11/29/24 14:37 11/29/24 15:18 Hydromorphone Hcl Inj (*Crx) 2 Mg/Ml Vial IV PUSH 1 mg Q2H PRN Administration Breakthrough Pain Rated 7-10 or NPO Hydromorphone HCl 0.5 mg 11/29/24 14:37 Hydromorphone Hcl Inj (*Crx) 2 Mg/Ml Vial IV PUSH Q2H PRN Breakthrough Pain Rated 4-6 or NPO Hydroxyzine Pamoate 50 mg 11/27/24 09:00 11/28/24 16:29 Hydroxyzine Pamoate 25 Mg Capsule PO 50 mg TID DIANE Administration Lactated Ringer's 1,000 mls @ 30 mls/hr 11/29/24 11:45 11/29/24 14:32 Lr - Lactated Ringers Iv IV CONT Infused .Q24H DIANE Infusion Lactated Ringer's 1,000 mls @ 30 mls/hr 11/29/24 11:45 11/29/24 15:20 Lr - Lactated Ringers Iv IV CONT Not Given .Q24H DIANE Cefazolin Sodium 2 gm in 50 mls @ 100 mls/hr 11/29/24 20:00 Ancef 2 Gm/D5w 50 Ml IVPB 11/30/24 12:29 Q8H DIANE Ibuprofen 800 mg in 200 mls @ 400 mls/hr 11/29/24 14:32 Caldolor 800 Mg/200 Ml IVPB Q6H PRN Breakthrough Pain Rated 1-3 or NPO Latanoprost 1 drop 11/26/24 21:30 11/28/24 21:00 Latanoprost 0.005% Op Soln 2.5 Ml Btl EACH EYE 1 drop HS DIANE Administration Naloxone HCl 0.1 mg 11/29/24 06:24 11/29/24 08:04 Naloxone Hcl 0.4 Mg/Ml Vial IV PUSH 0.1 mg Q5MIN PRN Administration somnolence Naloxone HCl 0.1 mg 11/29/24 14:32 Naloxone Hcl 0.4 Mg/Ml Vial IV PUSH Q2M PRN Opiate Reversal Nonformulary Drug 0 mg 11/27/24 09:00 11/29/24 10:17 Lurasidone 40 Mg PO 12/27/24 08:59 120 mg Tablet DAILY DIANE Administration Ondansetron HCl 4 mg 11/29/24 11:43 Ondansetron Inj 4 Mg/2 Ml Vial IV PUSH ONCE PRN Nausea Ondansetron HCl 4 mg 11/29/24 14:32 Ondansetron Inj 4 Mg/2 Ml Vial IV PUSH Q4H PRN Nausea And Vomiting Oxycodone/Acetaminophen 1 tablet 11/29/24 14:32 Oxycodone/Acetaminophen (*Crx) 5-325 Mg Tablet PO Q4H PRN Pain Rated 4-6 Oxycodone/Acetaminophen 1 tab 11/29/24 14:32 Oxycodone/Acetaminophen (*Crx) 10-325 Mg Tablet PO Q6H PRN Pain Rated 7-10 Polyethylene Glycol 17 gm 11/30/24 09:00 Polyethylene Glycol 3350 17 Gm Powd.Pack PO QAM DIANE Risperidone 4 mg 11/26/24 21:30 11/29/24 06:01 Risperidone 1 Mg Tablet PO 4 mg 0700,2100 DIANE Administration Senna/Docusate Sodium 2 tab 11/29/24 17:00 Senna/Docusate Sodium Tablet PO BID DIANE Sodium Chloride 1 gm 11/27/24 09:00 11/29/24 08:32 Sodium Chloride 1 Gm Tablet PO 1 gm BID DIANE Administration Valacyclovir HCl 1,000 mg 11/26/24 21:20 11/29/24 08:32 Valacyclovir Hcl 500 Mg Tablet PO 1,000 mg Q12HR DIANE Administration Venlafaxine HCl 150 mg 11/27/24 07:00 11/29/24 06:01 Venlafaxine Hcl Xr 75 Mg Cap.Er.24h PO 150 mg DAILY@0700 [facility] Administration Vitamin D 25 mcg 11/27/24 09:00 11/29/24 08:32 Cholecalciferol (Vitamin D3) 25 Mcg (1,000 Units) Tablet PO 25 mcg DAILY DIANE Administration Radiology Results: ITS Impressions Cervical Spine CT 11/26/24 11:48 IMPRESSION: 1. Mild cervical spondylosis and chronic appearing mild T2 compression fracture. No acute osseous abnormality. Head CT 11/26/24 11:54 IMPRESSION: No acute intracranial findings. Chest X-Ray 11/26/24 12:26 IMPRESSION: No acute cardiopulmonary pathology. Hip/Pelvis X-Ray 11/26/24 12:33 IMPRESSION: 1. Nondisplaced transcervical fracture of the proximal left femur. Labs Labs: Laboratory Tests 11/29/24 05:35 11/29/24 05:35 Calcium 9.1 Phosphorus 3.8 Magnesium 1.7
[2024-11-29] MEDS: HYDROmorphone HCL INJ (*CRX) 2 MG/ML VIAL 1 MG IV PUSH (15:18)
[2024-11-29] MEDS: ASPIRIN 81 MG ENTERIC TABLET PO (17:41)
[2024-11-29] MEDS: SENNA/DOCUSATE SODIUM TABLET 2 TAB PO (17:41)
[2024-11-29] MEDS: oxyCODONE/ACETAMINOPHEN (*CRX) 10-325 MG TABLET 1 TAB PO (17:45)
[2024-11-29] MEDS: ceFAZolin 2 GM/D5W 50 ML 2 GM/50 ML BAG IVPB (20:32)
[2024-11-29] MEDS: LATANOPROST 0.005% OP SOLN 2.5 ML BTL 1 DROP EACH EYE (20:34)
[2024-11-30] VITALS (12 sets, daily range): BP systolic 107–131; BP diastolic 65–82; PULSE 63–120; RESP 16–18; TEMP 35.2–36.9; O2SAT 93–97
[2024-11-30] MEDS: oxyCODONE/ACETAMINOPHEN (*CRX) 5-325 MG TABLET 1 TABLET PO (00:39)
[2024-11-30] MEDS: ceFAZolin 2 GM/D5W 50 ML 2 GM/50 ML BAG IVPB ×2 (04:40→12:00)
[2024-11-30] MEDS: BENZTROPINE MESYLATE 0.5 MG TABLET PO ×3 (06:01→20:56)
[2024-11-30] MEDS: DOCUSATE SODIUM 100 MG CAPSULE PO ×2 (06:01→20:56)
[2024-11-30] MEDS: VENLAFAXINE HCL XR 75 MG CAP.ER.24H 150 MG PO (06:01)
[2024-11-30 06:30] LABS: Hematocrit 35.8 % (42.0-52.0); Hemoglobin 12.0 g/dL (14.0-18.0); Mean Corpuscular HGB Conc 33.5 g/dl (32-36); Mean Corpuscular Hemoglobin 32.6 pg (26-34); Mean Corpuscular Volume 97.3 fl (80-100); Platelet Count Result 150 k/mm3 (150-375); Red Blood Count 3.68 M/mm3 (4.6-6.20); White Blood Count 9.5 K/mm3 (4.5-10.0)
[2024-11-30 06:57] LABS: Anion Gap 8 mmol/L (4-12); Blood Urea Nitrogen 18 mg/dL (9-20); Calcium 9.1 mg/dL (8.4-10.2); Carbon Dioxide 31 mmol/L (22-30); Chloride 90 mmol/L (98-107); Estimated CRCL calculation 86 ml/min; Estimated Glomerular Filt Rate > 60; Glucose 113 mg/dL (65-110); Magnesium 1.7 mg/dL (1.6-2.3); Potassium 4.3 mmol/L (3.4-5.0); Sodium 129 mmol/L (137-145)
[2024-11-30 07:08] LABS: Osmolality, Serum 251 mOsmol/kg (275-295)
[2024-11-30] MEDS: oxyCODONE/ACETAMINOPHEN (*CRX) 10-325 MG TABLET 1 TAB PO ×2 (08:57→16:14)
[2024-11-30] MEDS: CHOLECALCIFEROL (VITAMIN D3) 25 MCG (1,000 UNITS) TABLET PO (09:23)
[2024-11-30] MEDS: ASPIRIN 81 MG ENTERIC TABLET PO ×2 (09:23→16:14)
[2024-11-30] MEDS: SODIUM CHLORIDE 1 GM TABLET PO ×2 (09:23→16:14)
[2024-11-30] MEDS: SENNA/DOCUSATE SODIUM TABLET 2 TAB PO ×2 (09:23→16:14)
[2024-11-30] MEDS: FOLIC ACID 1 MG TABLET PO (09:23)
[2024-11-30] MEDS: CALCIUM CARBONATE (OSCAL) 500 MG TABLET PO ×2 (09:24→16:14)
[2024-11-30] MEDS: DIVALPROEX SODIUM ER 500 MG TAB.24H PO ×2 (09:24→21:01)
[2024-11-30] MEDS: [UNRECOGNIZED DRUG - OTHER] PO (09:57)
[2024-11-30] MEDS: LURASIDONE 40 MG PO (09:57)
--- NOTE | 2024-11-30 11:33 | P.PNNP_ITS ---
Progress Note: A&P Assessment and Plan (1) Hyponatremia: Code(s): E87.1 - Hypo-osmolality and hyponatremia Status: Acute Assessment and Plan: * acute on chronic * has been present as far back as 2018 if not longer -- seems to average ~ 127 - 133mmol/L * 130mmol/L in April 2024 * 129mmol/L in January 2023 (by [facility] records) * 127mmol/L in December 2022 * 133mmol/L in July 2018 * on salt tablets as an outpatient * chronic issue from: * psychiatric medications (risperidone, lurasidone, & effexor) * excessive free water intake * smoking history * acute issue from: * pain * pain medications * prerenal factors * evaluation to date noted: * serum/urine osmolality c/w SIADH. * urine electrolytes pre-renal * TSH okay * cortisol below 15. will check cortrosyn stim test * checking SPEP/UPEP * improvement in sodium with salt tablets and fluid restriction * sodium now at baseline. * continue current approach * check sodium tomorrow. (2) Fracture of femur, left, closed: Qualifiers: Encounter type: initial encounter Femur location: midcervical Fracture alignment: nondisplaced Qualified Code(s): S72.035A - Nondisplaced midcervical fracture of left femur, initial encounter for closed fracture Code(s): S72.92XA - Unspecified fracture of left femur, initial encounter for closed fracture Status: Acute Plan * X-ray imaging noted: * non-displaced femoral neck fracture with impaction. * Orthopedic Surgery following * s/p percutaneous pinning left hip with 3 cannulated screws (on 11/29) * anticipate 4-6 weeks rehab with PWB using a walker * local wound care * PT/OT as tolerated * pt up in a chair now Subjective Date/time seen: 11/30/24 11:33 Interval history: alert. feels okay. leg about the same. eating well. Exam Narrative: General: WD/WN male in NAD Heart: normal S1 and S2; no rub Lungs: clear to auscultation Abdomen: soft, nontender, nondistended, positive bowel sounds Extremities: no cyanosis or clubbing; no edema Skin: warm and dry without rash Objective Data Vital Signs Vital Signs: Vital Signs - 24 hr 11/29/24 13:28 11/29/24 13:40 11/29/24 13:55 Temperature 97.8 F Pulse Rate 73 77 82 Respiratory Rate 8 L 12 12 Blood Pressure 129/77 147/86 H 148/86 H Pulse Oximetry 100 100 95 Oxygen Delivery Simple Face Mask Simple Face Mask Room Air Oxygen Flow Rate 8 8 11/29/24 14:10 11/29/24 14:25 11/29/24 14:32 Temperature 96.4 F L Pulse Rate 81 83 86 Respiratory Rate 12 14 16 Blood Pressure 136/74 129/72 124/67 Pulse Oximetry 95 94 95 Oxygen Delivery Room Air Room Air Oxygen Flow Rate 11/29/24 14:47 11/29/24 15:17 11/29/24 16:00 Temperature 96.6 F L 96.3 F L Pulse Rate 76 82 83 Respiratory Rate 16 16 Blood Pressure 138/86 120/74 Pulse Oximetry 96 91 Oxygen Delivery Oxygen Flow Rate 11/29/24 16:17 11/29/24 19:15 11/29/24 20:01 Temperature 96.3 F L Pulse Rate 78 85 Respiratory Rate 17 Blood Pressure 135/69 Pulse Oximetry 90 Oxygen Delivery Room Air Oxygen Flow Rate 11/29/24 20:17 11/29/24 21:19 11/30/24 00:04 Temperature 95.4 F L Pulse Rate 82 84 Respiratory Rate 16 Blood Pressure 105/67 Pulse Oximetry 94 94 Oxygen Delivery Room Air Oxygen Flow Rate 11/30/24 00:17 11/30/24 03:59 11/30/24 04:17 Temperature 95.4 F L 97.9 F Pulse Rate 94 88 97 Respiratory Rate 16 16 Blood Pressure 124/72 130/82 Pulse Oximetry 93 93 Oxygen Delivery Oxygen Flow Rate 11/30/24 08:00 11/30/24 08:00 11/30/24 08:17 Temperature 96.1 F L Pulse Rate 105 H 94 Respiratory Rate 18 Blood Pressure 131/76 Pulse Oximetry 96 Oxygen Delivery Room Air Oxygen Flow Rate 11/30/24 08:54 Temperature Pulse Rate Respiratory Rate Blood Pressure Pulse Oximetry Oxygen Delivery Room Air Oxygen Flow Rate Intake/Output Intake/Output: Intake & Output 11/27/24 11/28/24 11/29/24 11/30/24 23:59 23:59 23:59 23:59 Intake Total 792 894 4622 690 Output Total 1650 600 0 450 Balance -1070 -120 1049 240 Meds/Results Medications: Active Medications Generic Name Dose Route Start Last Admin Trade Name Freq PRN Reason Stop Dose Admin Acetaminophen 650 mg 11/26/24 14:45 Acetaminophen 325 Mg Tablet PO Q6H PRN Fever Acetaminophen 500 mg 11/29/24 14:32 Acetaminophen 500 Mg Tablet PO Q6H PRN Pain Rated 1-3 Al Hydrox/Mg Hydrox/Simethicone 30 ml 11/26/24 21:26 Mag Hydrox/Al Hydrox/Simeth 30 Ml Udc PO Q4H PRN Indigestion Aspirin 81 mg 11/29/24 17:00 11/30/24 09:23 Aspirin 81 Mg Enteric Tablet PO 81 mg BID DIANE Administration Benztropine Mesylate 0.5 mg 11/26/24 21:25 11/30/24 06:01 Benztropine Mesylate 0.5 Mg Tablet PO 0.5 mg 0700,1730,2100 DIANE Administration Bisacodyl 10 mg 11/26/24 21:18 Bisacodyl 5 Mg Tablet Ec PO DAILY PRN constipation Bismuth Subsalicylate 524 mg 11/26/24 21:30 Bismuth Subsalicylate 262 Mg Chewable Tablet PO QID PRN diarrhea Calcium Carbonate 500 mg 11/27/24 09:00 11/30/24 09:24 Calcium Carbonate (Oscal) 500 Mg Tablet PO 500 mg BID DIANE Administration Divalproex Sodium 500 mg 11/26/24 21:25 11/30/24 09:24 Divalproex Sodium Er 500 Mg Tab.24h PO 500 mg Q12HR DIANE Administration Docusate Sodium 100 mg 11/26/24 21:25 11/30/24 06:01 Docusate Sodium 100 Mg Capsule PO 100 mg 0700,2100 DIANE Administration Folic Acid 1 mg 11/27/24 09:00 11/30/24 09:23 Folic Acid 1 Mg Tablet PO 1 mg DAILY DIANE Administration Guaifenesin 200 mg 11/26/24 21:18 Guaifenesin 200 Mg/10 Ml Udc PO Q4H PRN cough Hydromorphone HCl 1 mg 11/29/24 14:37 11/29/24 15:18 Hydromorphone Hcl Inj (*Crx) 2 Mg/Ml Vial IV PUSH 1 mg Q2H PRN Administration Breakthrough Pain Rated 7-10 or NPO Hydromorphone HCl 0.5 mg 11/29/24 14:37 Hydromorphone Hcl Inj (*Crx) 2 Mg/Ml Vial IV PUSH Q2H PRN Breakthrough Pain Rated 4-6 or NPO Hydroxyzine Pamoate 50 mg 11/27/24 09:00 11/30/24 09:23 Hydroxyzine Pamoate 25 Mg Capsule PO 50 mg TID DIANE Administration Lactated Ringer's 1,000 mls @ 30 mls/hr 11/29/24 11:45 11/29/24 14:32 Lr - Lactated Ringers Iv IV CONT Infused .Q24H DIANE Infusion Lactated Ringer's 1,000 mls @ 30 mls/hr 11/29/24 11:45 11/29/24 15:20 Lr - Lactated Ringers Iv IV CONT Not Given .Q24H DIANE Cefazolin Sodium 2 gm in 50 mls @ 100 mls/hr 11/29/24 20:00 11/30/24 05:11 Ancef 2 Gm/D5w 50 Ml IVPB 11/30/24 12:29 Infused Q8H DIANE Infusion Ibuprofen 800 mg in 200 mls @ 400 mls/hr 11/29/24 14:32 Caldolor 800 Mg/200 Ml IVPB Q6H PRN Breakthrough Pain Rated 1-3 or NPO Latanoprost 1 drop 11/26/24 21:30 11/29/24 20:34 Latanoprost 0.005% Op Soln 2.5 Ml Btl EACH EYE 1 drop HS DIANE Administration Naloxone HCl 0.1 mg 11/29/24 06:24 11/29/24 08:04 Naloxone Hcl 0.4 Mg/Ml Vial IV PUSH 0.1 mg Q5MIN PRN Administration somnolence Naloxone HCl 0.1 mg 11/29/24 14:32 Naloxone Hcl 0.4 Mg/Ml Vial IV PUSH Q2M PRN Opiate Reversal Nonformulary Drug 0 mg 11/27/24 09:00 11/30/24 09:57 Lurasidone 40 Mg PO 12/27/24 08:59 120 mg Tablet DAILY DIANE Administration Ondansetron HCl 4 mg 11/29/24 11:43 Ondansetron Inj 4 Mg/2 Ml Vial IV PUSH ONCE PRN Nausea Ondansetron HCl 4 mg 11/29/24 14:32 Ondansetron Inj 4 Mg/2 Ml Vial IV PUSH Q4H PRN Nausea And Vomiting Oxycodone/Acetaminophen 1 tablet 11/29/24 14:32 11/30/24 00:39 Oxycodone/Acetaminophen (*Crx) 5-325 Mg Tablet PO 1 tablet Q4H PRN Administration Pain Rated 4-6 Oxycodone/Acetaminophen 1 tab 11/29/24 14:32 11/30/24 08:57 Oxycodone/Acetaminophen (*Crx) 10-325 Mg Tablet PO 1 tab Q6H PRN Administration Pain Rated 7-10 Polyethylene Glycol 17 gm 11/30/24 09:00 11/30/24 09:23 Polyethylene Glycol 3350 17 Gm Powd.Pack PO 17 gm QAM DIANE Administration Risperidone 4 mg 11/26/24 21:30 11/30/24 06:00 Risperidone 1 Mg Tablet PO 4 mg 0700,2100 DIANE Administration Senna/Docusate Sodium 2 tab 11/29/24 17:00 11/30/24 09:23 Senna/Docusate Sodium Tablet PO 2 tab BID DIANE Administration Sodium Chloride 1 gm 11/27/24 09:00 11/30/24 09:23 Sodium Chloride 1 Gm Tablet PO 1 gm BID DIANE Administration Valacyclovir HCl 1,000 mg 11/26/24 21:20 11/30/24 09:23 Valacyclovir Hcl 500 Mg Tablet PO 1,000 mg Q12HR DIANE Administration Venlafaxine HCl 150 mg 11/27/24 07:00 11/30/24 06:01 Venlafaxine Hcl Xr 75 Mg Cap.Er.24h PO 150 mg DAILY@0700 DIANE Administration Vitamin D 25 mcg 11/27/24 09:00 11/30/24 09:23 Cholecalciferol (Vitamin D3) 25 Mcg (1,000 Units) Tablet PO 25 mcg DAILY DIANE Administration Radiology Results: ITS Impressions Cervical Spine CT 11/26/24 11:48 IMPRESSION: 1. Mild cervical spondylosis and chronic appearing mild T2 compression fracture. No acute osseous abnormality. Head CT 11/26/24 11:54 IMPRESSION: No acute intracranial findings. Chest X-Ray 11/26/24 12:26 IMPRESSION: No acute cardiopulmonary pathology. Hip/Pelvis X-Ray 11/26/24 12:33 IMPRESSION: 1. Nondisplaced transcervical fracture of the proximal left femur. Labs Labs: Laboratory Results - last 24 hr 11/26/24 11/30/24 17:55 06:15 WBC 9.5 RBC 3.68 L Hgb 12.0 L Hct 35.8 L MCV 97.3 MCH 32.6 MCHC 33.5 RDW 14.6 H Plt Count 150 MPV 9.9 Sodium 129 L Potassium 4.3 Chloride 90 L Carbon Dioxide 31 H Anion Gap 8 BUN 18 Creatinine 0.89 Estim Creat Clear Calc 86 Estimated GFR > 60 Glucose 113 H Serum Osmolality 251 L Calcium 9.1 Magnesium 1.7
--- NOTE | 2024-11-30 12:38 | WPDANESPN ---
Anes - Prog Note Post-Op Date/Time: 11/30/24 12:38 Cardiovascular status: normal Respiratory status: normal Airway patency: baseline Mental status: baseline Post-Op hydration status: normal Vital Signs: Last Vital Signs Temp 35.6 C L 11/30/24 08:17 Pulse 94 11/30/24 08:17 Resp 18 11/30/24 08:17 BP 131/76 11/30/24 08:17 Pulse Ox 96 11/30/24 08:17 O2 Del Method Room Air 11/30/24 08:54 O2 Flow Rate 8 11/29/24 13:40 Pain Score (VAS): 1 I/O: Intake & Output 11/29/24 11/30/24 11/30/24 23:59 07:59 15:59 Intake Total 350 690 0 Output Total 300 150 Balance 350 390 -150 Laboratory Tests 11/30/24 06:15 11/30/24 06:15 11/26/24 11/30/24 17:55 06:15 WBC 9.5 RBC 3.68 L Hgb 12.0 L Hct 35.8 L MCV 97.3 MCH 32.6 MCHC 33.5 RDW 14.6 H Plt Count 150 MPV 9.9 Sodium 129 L Potassium 4.3 Chloride 90 L Carbon Dioxide 31 H Anion Gap 8 BUN 18 Creatinine 0.89 Estim Creat Clear Calc 86 Estimated GFR > 60 Glucose 113 H Serum Osmolality 251 L Calcium 9.1 Magnesium 1.7 Post-procedural complaints: none Patient Feedback: Patient satisfied with anesthetic care.
--- NOTE | 2024-11-30 14:38 | PM.IMPN ---
Progress Note: A&P Assessment and Plan (1) Fracture of femur, left, closed: Qualifiers: Encounter type: initial encounter Femur location: midcervical Fracture alignment: nondisplaced Qualified Code(s): S72.035A - Nondisplaced midcervical fracture of left femur, initial encounter for closed fracture Code(s): S72.92XA - Unspecified fracture of left femur, initial encounter for closed fracture Status: Acute Assessment and Plan: - GLF resulting in a nondisplaced transcervical fracture of the proximal left femur. - ortho consulted - analgesics prn - NPO at midnight - bed rest Currently on hold due to hyponatremia (2) Hyponatremia: Code(s): E87.1 - Hypo-osmolality and hyponatremia Status: Acute Assessment and Plan: - Na 122, previously 129 in 2022 - check serum osmolality, urine osmolality, urine sodium 81, protein to creatinine ratio 0.16, urine creatinine 1 O2 - bmp Q4H - reportedly chronic. on Risperidone, Lurasidone, Divalproex, Effexor, Benztropine which are likely contributing. patient also reportedly does not stick to his fluid restriction and will sneak water - trend renal function - NS at 150 mL/hr x1L received 11/26/2024 2:00 p.m. with worsening of sodium level indicating possibly SIADH. - continue NaCl tabs 1 gm BID Recheck sodium this afternoon. May need to add Lasix along with salt tablet. Nephrology consult Will check thyroid function and cortisol level random Plan Patient was plan for left hip surgery on 11/28 however it was postponed due to hyponatremia 2/2 patient psych medications reportedly chronic. on Risperidone, Lurasidone, Divalproex, Effexor, Benztropine which are likely contributing. patient also reportedly does not stick to his fluid restriction and will sneak water, today patient sodium is improving to 129, patient hadl eft hip ORIF 11/29/24, POD# 1, Patient reports soreness in left hip. Denies any chest pain or shortness of breath. Diet: regular, fluid restriction GI Prophylaxis: NA DVT Prophylaxis: SCDs IV fluids: NS at 150 mL/hr x1L Lines/Tubes: peripheral IV Code Status: full code Subjective Date/time seen: 11/30/24 14:38 Interval history: Patient was plan for left hip surgery on 11/28 however it was postponed due to hyponatremia 2/2 patient psych medications reportedly chronic. on Risperidone, Lurasidone, Divalproex, Effexor, Benztropine which are likely contributing. patient also reportedly does not stick to his fluid restriction and will sneak water, today patient sodium is improving to 129, patient hadl eft hip ORIF 11/29/24, POD# 1, Patient reports soreness in left hip. Denies any chest pain or shortness of breath. Review of Systems Review of Systems: All systems reviewed & are unremarkable except as noted in HPI and below Exam Narrative: Patient is comfortable, NAD HEENT: eyes are clear and none icteric LUNGS:CTA HEART: RR S1S2 ABD: BS+, Soft and nontender Lower extremities: no edema SKIN: nonjaundiced Neuro: grossly intact. Objective Data Vital Signs Vital Signs: Vital Signs - 24 hr 11/29/24 14:47 11/29/24 15:17 11/29/24 16:00 Temperature 35.9 C L 35.7 C L Pulse Rate 76 82 83 Respiratory Rate 16 16 Blood Pressure 138/86 120/74 Pulse Oximetry 96 91 Oxygen Delivery 11/29/24 16:17 11/29/24 19:15 11/29/24 20:01 Temperature 35.7 C L Pulse Rate 78 85 Respiratory Rate 17 Blood Pressure 135/69 Pulse Oximetry 90 Oxygen Delivery Room Air 11/29/24 20:17 11/29/24 21:19 11/30/24 00:04 Temperature 35.2 C L Pulse Rate 82 84 Respiratory Rate 16 Blood Pressure 105/67 Pulse Oximetry 94 94 Oxygen Delivery Room Air 11/30/24 00:17 11/30/24 03:59 11/30/24 04:17 Temperature 35.2 C L 36.6 C Pulse Rate 94 88 97 Respiratory Rate 16 16 Blood Pressure 124/72 130/82 Pulse Oximetry 93 93 Oxygen Delivery 11/30/24 08:00 11/30/24 08:00 11/30/24 08:17 Temperature 35.6 C L Pulse Rate 105 H 94 Respiratory Rate 18 Blood Pressure 131/76 Pulse Oximetry 96 Oxygen Delivery Room Air 11/30/24 08:54 11/30/24 12:00 11/30/24 12:17 Temperature 35.7 C L Pulse Rate 120 H 112 H Respiratory Rate 16 Blood Pressure 107/65 Pulse Oximetry 96 Oxygen Delivery Room Air Intake/Output Intake/Output: Intake & Output 11/27/24 11/28/24 11/29/24 11/30/24 23:59 23:59 23:59 23:59 Intake Total 442 989 2492 810 Output Total 1650 600 0 450 Balance -1070 -120 1049 360 Meds/Results Medications: Active Medications Generic Name Dose Route Start Last Admin Trade Name Martinq PRN Reason Stop Dose Admin Acetaminophen 650 mg 11/26/24 14:45 Acetaminophen 325 Mg Tablet PO Q6H PRN Fever Acetaminophen 500 mg 11/29/24 14:32 Acetaminophen 500 Mg Tablet PO Q6H PRN Pain Rated 1-3 Al Hydrox/Mg Hydrox/Simethicone 30 ml 11/26/24 21:26 Mag Hydrox/Al Hydrox/Simeth 30 Ml Udc PO Q4H PRN Indigestion Aspirin 81 mg 11/29/24 17:00 11/30/24 09:23 Aspirin 81 Mg Enteric Tablet PO 81 mg BID DIANE Administration Benztropine Mesylate 0.5 mg 11/26/24 21:25 11/30/24 06:01 Benztropine Mesylate 0.5 Mg Tablet PO 0.5 mg 0700,1730,2100 DIANE Administration Bisacodyl 10 mg 11/26/24 21:18 Bisacodyl 5 Mg Tablet Ec PO DAILY PRN constipation Bismuth Subsalicylate 524 mg 11/26/24 21:30 Bismuth Subsalicylate 262 Mg Chewable Tablet PO QID PRN diarrhea Calcium Carbonate 500 mg 11/27/24 09:00 11/30/24 09:24 Calcium Carbonate (Oscal) 500 Mg Tablet PO 500 mg BID DIANE Administration Divalproex Sodium 500 mg 11/26/24 21:25 11/30/24 09:24 Divalproex Sodium Er 500 Mg Tab.24h PO 500 mg Q12HR DIANE Administration Docusate Sodium 100 mg 11/26/24 21:25 11/30/24 06:01 Docusate Sodium 100 Mg Capsule PO 100 mg 0700,2100 DIANE Administration Folic Acid 1 mg 11/27/24 09:00 11/30/24 09:23 Folic Acid 1 Mg Tablet PO 1 mg DAILY DIANE Administration Guaifenesin 200 mg 11/26/24 21:18 Guaifenesin 200 Mg/10 Ml Udc PO Q4H PRN cough Hydromorphone HCl 1 mg 11/29/24 14:37 11/29/24 15:18 Hydromorphone Hcl Inj (*Crx) 2 Mg/Ml Vial IV PUSH 1 mg Q2H PRN Administration Breakthrough Pain Rated 7-10 or NPO Hydromorphone HCl 0.5 mg 11/29/24 14:37 Hydromorphone Hcl Inj (*Crx) 2 Mg/Ml Vial IV PUSH Q2H PRN Breakthrough Pain Rated 4-6 or NPO Hydroxyzine Pamoate 50 mg 11/27/24 09:00 11/30/24 12:01 Hydroxyzine Pamoate 25 Mg Capsule PO 50 mg TID DIANE Administration Ibuprofen 800 mg in 200 mls @ 400 mls/hr 11/29/24 14:32 Caldolor 800 Mg/200 Ml IVPB Q6H PRN Breakthrough Pain Rated 1-3 or NPO Latanoprost 1 drop 11/26/24 21:30 11/29/24 20:34 Latanoprost 0.005% Op Soln 2.5 Ml Btl EACH EYE 1 drop HS DIANE Administration Naloxone HCl 0.1 mg 11/29/24 06:24 11/29/24 08:04 Naloxone Hcl 0.4 Mg/Ml Vial IV PUSH 0.1 mg Q5MIN PRN Administration somnolence Naloxone HCl 0.1 mg 11/29/24 14:32 Naloxone Hcl 0.4 Mg/Ml Vial IV PUSH Q2M PRN Opiate Reversal Nonformulary Drug 0 mg 11/27/24 09:00 11/30/24 09:57 Lurasidone 40 Mg PO 12/27/24 08:59 120 mg Tablet DAILY DIANE Administration Ondansetron HCl 4 mg 11/29/24 11:43 Ondansetron Inj 4 Mg/2 Ml Vial IV PUSH ONCE PRN Nausea Ondansetron HCl 4 mg 11/29/24 14:32 Ondansetron Inj 4 Mg/2 Ml Vial IV PUSH Q4H PRN Nausea And Vomiting Oxycodone/Acetaminophen 1 tablet 11/29/24 14:32 11/30/24 00:39 Oxycodone/Acetaminophen (*Crx) 5-325 Mg Tablet PO 1 tablet Q4H PRN Administration Pain Rated 4-6 Oxycodone/Acetaminophen 1 tab 11/29/24 14:32 11/30/24 08:57 Oxycodone/Acetaminophen (*Crx) 10-325 Mg Tablet PO 1 tab Q6H PRN Administration Pain Rated 7-10 Polyethylene Glycol 17 gm 11/30/24 09:00 11/30/24 09:23 Polyethylene Glycol 3350 17 Gm Powd.Pack PO 17 gm QAM DIANE Administration Risperidone 4 mg 11/26/24 21:30 11/30/24 06:00 Risperidone 1 Mg Tablet PO 4 mg 0700,2100 DIANE Administration Senna/Docusate Sodium 2 tab 11/29/24 17:00 11/30/24 09:23 Senna/Docusate Sodium Tablet PO 2 tab BID DIANE Administration Sodium Chloride 1 gm 11/27/24 09:00 11/30/24 09:23 Sodium Chloride 1 Gm Tablet PO 1 gm BID DIANE Administration Valacyclovir HCl 1,000 mg 11/26/24 21:20 11/30/24 09:23 Valacyclovir Hcl 500 Mg Tablet PO 1,000 mg Q12HR DIANE Administration Venlafaxine HCl 150 mg 11/27/24 07:00 11/30/24 06:01 Venlafaxine Hcl Xr 75 Mg Cap.Er.24h PO 150 mg DAILY@0700 DIANE Administration Vitamin D 25 mcg 11/27/24 09:00 11/30/24 09:23 Cholecalciferol (Vitamin D3) 25 Mcg (1,000 Units) Tablet PO 25 mcg DAILY DIANE Administration Radiology Results: ITS Impressions Cervical Spine CT 11/26/24 11:48 IMPRESSION: 1. Mild cervical spondylosis and chronic appearing mild T2 compression fracture. No acute osseous abnormality. Head CT 11/26/24 11:54 IMPRESSION: No acute intracranial findings. Chest X-Ray 11/26/24 12:26 IMPRESSION: No acute cardiopulmonary pathology. Hip/Pelvis X-Ray 11/26/24 12:33 IMPRESSION: 1. Nondisplaced transcervical fracture of the proximal left femur. Labs Labs: Laboratory Results - last 24 hr 11/26/24 11/30/24 17:55 06:15 WBC 9.5 RBC 3.68 L Hgb 12.0 L Hct 35.8 L MCV 97.3 MCH 32.6 MCHC 33.5 RDW 14.6 H Plt Count 150 MPV 9.9 Sodium 129 L Potassium 4.3 Chloride 90 L Carbon Dioxide 31 H Anion Gap 8 BUN 18 Creatinine 0.89 Estim Creat Clear Calc 86 Estimated GFR > 60 Glucose 113 H Serum Osmolality 251 L Calcium 9.1 Magnesium 1.7 Quality VTE Prophylaxis VTE prophylaxis: mechanical ordered
--- NOTE | 2024-11-30 20:31 | PM.PNORT ---
Progress Note: A&P Assessment and Plan (1) Fracture of femur, left, closed: Qualifiers: Encounter type: initial encounter Femur location: midcervical Fracture alignment: nondisplaced Qualified Code(s): S72.035A - Nondisplaced midcervical fracture of left femur, initial encounter for closed fracture Code(s): S72.92XA - Unspecified fracture of left femur, initial encounter for closed fracture Status: Acute Plan Pain well controlled. Mobilizing slowly. Dressing intact. NVI. Stable. Encouraged mobilization. PT as able. Subjective Subjective Date/Time Seen: 11/30/24 20:31 Objective Data Vital Signs Vital Signs: Vital Signs - 24 hr 11/29/24 21:19 11/30/24 00:04 11/30/24 00:17 Temperature 35.2 C L Pulse Rate 84 94 Respiratory Rate 16 Blood Pressure 124/72 Pulse Oximetry 94 93 Oxygen Delivery Room Air 11/30/24 03:59 11/30/24 04:17 11/30/24 08:00 Temperature 36.6 C Pulse Rate 88 97 Respiratory Rate 16 Blood Pressure 130/82 Pulse Oximetry 93 Oxygen Delivery Room Air 11/30/24 08:00 11/30/24 08:17 11/30/24 08:54 Temperature 35.6 C L Pulse Rate 105 H 94 Respiratory Rate 18 Blood Pressure 131/76 Pulse Oximetry 96 Oxygen Delivery Room Air 11/30/24 12:00 11/30/24 12:17 11/30/24 16:17 Temperature 35.7 C L 35.8 C L Pulse Rate 120 H 112 H 93 Respiratory Rate 16 16 Blood Pressure 107/65 120/68 Pulse Oximetry 96 95 Oxygen Delivery 11/30/24 16:45 Temperature Pulse Rate 94 Respiratory Rate Blood Pressure Pulse Oximetry Oxygen Delivery Intake/Output Intake/Output: Intake & Output 11/27/24 11/28/24 11/29/24 11/30/24 23:59 23:59 23:59 23:59 Intake Total 601 614 6523 930 Output Total 1650 600 0 1550 Balance -1070 -120 1049 -620 Meds/Results Medications: Active Medications Generic Name Dose Route Start Last Admin Trade Name Freq PRN Reason Stop Dose Admin Acetaminophen 650 mg 11/26/24 14:45 Acetaminophen 325 Mg Tablet PO Q6H PRN Fever Acetaminophen 500 mg 11/29/24 14:32 Acetaminophen 500 Mg Tablet PO Q6H PRN Pain Rated 1-3 Al Hydrox/Mg Hydrox/Simethicone 30 ml 11/26/24 21:26 Mag Hydrox/Al Hydrox/Simeth 30 Ml Udc PO Q4H PRN Indigestion Aspirin 81 mg 11/29/24 17:00 11/30/24 16:14 Aspirin 81 Mg Enteric Tablet PO 81 mg BID DIANE Administration Benztropine Mesylate 0.5 mg 11/26/24 21:25 11/30/24 17:05 Benztropine Mesylate 0.5 Mg Tablet PO 0.5 mg 0700,1730,2100 DIANE Administration Bisacodyl 10 mg 11/26/24 21:18 Bisacodyl 5 Mg Tablet Ec PO DAILY PRN constipation Bismuth Subsalicylate 524 mg 11/26/24 21:30 Bismuth Subsalicylate 262 Mg Chewable Tablet PO QID PRN diarrhea Calcium Carbonate 500 mg 11/27/24 09:00 11/30/24 16:14 Calcium Carbonate (Oscal) 500 Mg Tablet PO 500 mg BID DIANE Administration Divalproex Sodium 500 mg 11/26/24 21:25 11/30/24 09:24 Divalproex Sodium Er 500 Mg Tab.24h PO 500 mg Q12HR DIANE Administration Docusate Sodium 100 mg 11/26/24 21:25 11/30/24 06:01 Docusate Sodium 100 Mg Capsule PO 100 mg 0700,2100 DIANE Administration Folic Acid 1 mg 11/27/24 09:00 11/30/24 09:23 Folic Acid 1 Mg Tablet PO 1 mg DAILY DIANE Administration Guaifenesin 200 mg 11/26/24 21:18 Guaifenesin 200 Mg/10 Ml Udc PO Q4H PRN cough Hydromorphone HCl 1 mg 11/29/24 14:37 11/29/24 15:18 Hydromorphone Hcl Inj (*Crx) 2 Mg/Ml Vial IV PUSH 1 mg Q2H PRN Administration Breakthrough Pain Rated 7-10 or NPO Hydromorphone HCl 0.5 mg 11/29/24 14:37 Hydromorphone Hcl Inj (*Crx) 2 Mg/Ml Vial IV PUSH Q2H PRN Breakthrough Pain Rated 4-6 or NPO Hydroxyzine Pamoate 50 mg 11/27/24 09:00 11/30/24 16:14 Hydroxyzine Pamoate 25 Mg Capsule PO 50 mg TID DIANE Administration Ibuprofen 800 mg in 200 mls @ 400 mls/hr 11/29/24 14:32 Caldolor 800 Mg/200 Ml IVPB Q6H PRN Breakthrough Pain Rated 1-3 or NPO Latanoprost 1 drop 11/26/24 21:30 11/29/24 20:34 Latanoprost 0.005% Op Soln 2.5 Ml Btl EACH EYE 1 drop HS DIANE Administration Naloxone HCl 0.1 mg 11/29/24 06:24 11/29/24 08:04 Naloxone Hcl 0.4 Mg/Ml Vial IV PUSH 0.1 mg Q5MIN PRN Administration somnolence Naloxone HCl 0.1 mg 11/29/24 14:32 Naloxone Hcl 0.4 Mg/Ml Vial IV PUSH Q2M PRN Opiate Reversal Nonformulary Drug 0 mg 11/27/24 09:00 11/30/24 09:57 Lurasidone 40 Mg PO 12/27/24 08:59 120 mg Tablet DAILY DIANE Administration Ondansetron HCl 4 mg 11/29/24 11:43 Ondansetron Inj 4 Mg/2 Ml Vial IV PUSH ONCE PRN Nausea Ondansetron HCl 4 mg 11/29/24 14:32 Ondansetron Inj 4 Mg/2 Ml Vial IV PUSH Q4H PRN Nausea And Vomiting Oxycodone/Acetaminophen 1 tablet 11/29/24 14:32 11/30/24 00:39 Oxycodone/Acetaminophen (*Crx) 5-325 Mg Tablet PO 1 tablet Q4H PRN Administration Pain Rated 4-6 Oxycodone/Acetaminophen 1 tab 11/29/24 14:32 11/30/24 16:14 Oxycodone/Acetaminophen (*Crx) 10-325 Mg Tablet PO 1 tab Q6H PRN Administration Pain Rated 7-10 Polyethylene Glycol 17 gm 11/30/24 09:00 11/30/24 09:23 Polyethylene Glycol 3350 17 Gm Powd.Pack PO 17 gm QAM DIANE Administration Risperidone 4 mg 11/26/24 21:30 11/30/24 06:00 Risperidone 1 Mg Tablet PO 4 mg 0700,2100 DIANE Administration Senna/Docusate Sodium 2 tab 11/29/24 17:00 11/30/24 16:14 Senna/Docusate Sodium Tablet PO 2 tab BID DIANE Administration Sodium Chloride 1 gm 11/27/24 09:00 11/30/24 16:14 Sodium Chloride 1 Gm Tablet PO 1 gm BID DIANE Administration Valacyclovir HCl 1,000 mg 11/26/24 21:20 11/30/24 09:23 Valacyclovir Hcl 500 Mg Tablet PO 1,000 mg Q12HR DIANE Administration Venlafaxine HCl 150 mg 11/27/24 07:00 11/30/24 06:01 Venlafaxine Hcl Xr 75 Mg Cap.Er.24h PO 150 mg DAILY@0700 DIANE Administration Vitamin D 25 mcg 11/27/24 09:00 11/30/24 09:23 Cholecalciferol (Vitamin D3) 25 Mcg (1,000 Units) Tablet PO 25 mcg DAILY DIANE Administration Radiology Results: ITS Impressions Cervical Spine CT 11/26/24 11:48 IMPRESSION: 1. Mild cervical spondylosis and chronic appearing mild T2 compression fracture. No acute osseous abnormality. Head CT 11/26/24 11:54 IMPRESSION: No acute intracranial findings. Chest X-Ray 11/26/24 12:26 IMPRESSION: No acute cardiopulmonary pathology. Hip/Pelvis X-Ray 11/26/24 12:33 IMPRESSION: 1. Nondisplaced transcervical fracture of the proximal left femur. Labs Labs: Laboratory Results - last 24 hr 11/26/24 11/30/24 17:55 06:15 WBC 9.5 RBC 3.68 L Hgb 12.0 L Hct 35.8 L MCV 97.3 MCH 32.6 MCHC 33.5 RDW 14.6 H Plt Count 150 MPV 9.9 Sodium 129 L Potassium 4.3 Chloride 90 L Carbon Dioxide 31 H Anion Gap 8 BUN 18 Creatinine 0.89 Estim Creat Clear Calc 86 Estimated GFR > 60 Glucose 113 H Serum Osmolality 251 L Calcium 9.1 Magnesium 1.7
[2024-11-30] MEDS: LATANOPROST 0.005% OP SOLN 2.5 ML BTL 1 DROP EACH EYE (21:01)
[2024-12-01] VITALS (11 sets, daily range): BP systolic 123–150; BP diastolic 61–81; PULSE 60–102; RESP 14–18; TEMP 36–36.8; O2SAT 95–97
[2024-12-01] MEDS: BENZTROPINE MESYLATE 0.5 MG TABLET PO ×3 (06:04→21:06)
[2024-12-01] MEDS: DOCUSATE SODIUM 100 MG CAPSULE PO ×2 (06:04→21:07)
[2024-12-01] MEDS: VENLAFAXINE HCL XR 75 MG CAP.ER.24H 150 MG PO (06:05)
[2024-12-01 06:07] LABS: Hematocrit 34.9 % (42.0-52.0); Hemoglobin 11.9 g/dL (14.0-18.0); Mean Corpuscular HGB Conc 34.1 g/dl (32-36); Mean Corpuscular Hemoglobin 32.3 pg (26-34); Mean Corpuscular Volume 94.8 fl (80-100); Platelet Count Result 166 k/mm3 (150-375); Red Blood Count 3.68 M/mm3 (4.6-6.20); White Blood Count 8.3 K/mm3 (4.5-10.0)
[2024-12-01 07:07] LABS: Anion Gap 4 mmol/L (4-12); Blood Urea Nitrogen 20 mg/dL (9-20); Calcium 9.3 mg/dL (8.4-10.2); Carbon Dioxide 33 mmol/L (22-30); Chloride 93 mmol/L (98-107); Estimated CRCL calculation 97 ml/min; Estimated Glomerular Filt Rate > 60; Glucose 99 mg/dL (65-110); Magnesium 1.7 mg/dL (1.6-2.3); Potassium 4.5 mmol/L (3.4-5.0); Sodium 130 mmol/L (137-145)
[2024-12-01] MEDS: SENNA/DOCUSATE SODIUM TABLET 2 TAB PO ×2 (09:00→16:16)
[2024-12-01] MEDS: oxyCODONE/ACETAMINOPHEN (*CRX) 10-325 MG TABLET 1 TAB PO ×2 (09:00→16:17)
[2024-12-01] MEDS: SODIUM CHLORIDE 1 GM TABLET PO ×2 (09:00→16:17)
[2024-12-01] MEDS: ASPIRIN 81 MG ENTERIC TABLET PO ×2 (09:00→16:17)
[2024-12-01] MEDS: DIVALPROEX SODIUM ER 500 MG TAB.24H PO ×2 (09:00→21:06)
[2024-12-01] MEDS: CHOLECALCIFEROL (VITAMIN D3) 25 MCG (1,000 UNITS) TABLET PO (09:00)
[2024-12-01] MEDS: FOLIC ACID 1 MG TABLET PO (09:01)
[2024-12-01] MEDS: CALCIUM CARBONATE (OSCAL) 500 MG TABLET PO ×2 (09:01→16:16)
[2024-12-01] MEDS: LURASIDONE 40 MG PO (09:05)
[2024-12-01] MEDS: [UNRECOGNIZED DRUG - OTHER] PO (09:05)
--- NOTE | 2024-12-01 10:57 | P.PNNP_ITS ---
Progress Note: A&P Assessment and Plan (1) Hyponatremia: Code(s): E87.1 - Hypo-osmolality and hyponatremia Status: Acute Assessment and Plan: * acute on chronic * has been present as far back as 2018 if not longer -- seems to average ~ 127 - 133mmol/L * 130mmol/L in April 2024 * 129mmol/L in January 2023 (by [facility] records) * 127mmol/L in December 2022 * 133mmol/L in July 2018 * on salt tablets as an outpatient * chronic issue from: * psychiatric medications (risperidone, lurasidone, & effexor) * excessive free water intake * smoking history * acute issue from: * pain * pain medications * prerenal factors * evaluation to date noted: * serum/urine osmolality c/w SIADH. * urine electrolytes pre-renal * TSH okay * cortisol below 15. will check cortrosyn stim test. * checking SPEP/UPEP. These are still pending. * improvement in sodium with salt tablets and fluid restriction * sodium now at baseline. * continue current approach * okay for discharge from the kidney standpoint as long as the Cortrosyn stim test is okay. (2) Fracture of femur, left, closed: Qualifiers: Encounter type: initial encounter Femur location: midcervical Fracture alignment: nondisplaced Qualified Code(s): S72.035A - Nondisplaced midcervical fracture of left femur, initial encounter for closed fracture Code(s): S72.92XA - Unspecified fracture of left femur, initial encounter for closed f racture Status: Acute Plan * X-ray imaging noted: * non-displaced femoral neck fracture with impaction. * Orthopedic Surgery following * s/p percutaneous pinning left hip with 3 cannulated screws (on 11/29) * anticipate 4-6 weeks rehab with PWB using a walker * local wound care * PT/OT as tolerated * pt up in a chair now Subjective Date/time seen: 12/01/24 10:57 Interval history: patient is alert. Sitting up in a chair. Hungry for breakfast. No chest pain or shortness of breath Exam Narrative: General: WD/WN male in NAD Heart: normal S1 and S2; no rub or gallop Lungs: clear bilaterally Abdomen: soft, nontender, nondistended, positive bowel sounds Extremities: no cyanosis or clubbing; no edema Skin: no rash Objective Data Vital Signs Vital Signs: Vital Signs - 24 hr 11/30/24 12:00 11/30/24 12:17 11/30/24 16:17 Temperature 96.2 F L 96.5 F L Pulse Rate 120 H 112 H 93 Respiratory Rate 16 16 Blood Pressure 107/65 120/68 Pulse Oximetry 96 95 Oxygen Delivery 11/30/24 16:45 11/30/24 20:00 11/30/24 21:46 Temperature 98.4 F Pulse Rate 94 63 85 Respiratory Rate 18 Blood Pressure 130/78 Pulse Oximetry 97 Oxygen Delivery 12/01/24 00:00 12/01/24 04:00 12/01/24 06:30 Temperature 98.3 F Pulse Rate 60 60 80 Respiratory Rate 18 Blood Pressure 150/81 H Pulse Oximetry 97 Oxygen Delivery 12/01/24 07:35 Temperature Pulse Rate 80 Respiratory Rate 18 Blood Pressure Pulse Oximetry 97 Oxygen Delivery Room Air Intake/Output Intake/Output: Intake & Output 11/28/24 11/29/24 11/30/24 12/01/24 23:59 23:59 23:59 23:59 Intake Total 480 1049 930 120 Output Total 600 0 1550 500 Balance -120 1049 -620 -380 Meds/Results Medications: Active Medications Generic Name Dose Route Start Last Admin Trade Name Martinq PRN Reason Stop Dose Admin Acetaminophen 650 mg 11/26/24 14:45 Acetaminophen 325 Mg Tablet PO Q6H PRN Fever Acetaminophen 500 mg 11/29/24 14:32 Acetaminophen 500 Mg Tablet PO Q6H PRN Pain Rated 1-3 Al Hydrox/Mg Hydrox/Simethicone 30 ml 11/26/24 21:26 Mag Hydrox/Al Hydrox/Simeth 30 Ml Udc PO Q4H PRN Indigestion Aspirin 81 mg 11/29/24 17:00 12/01/24 09:00 Aspirin 81 Mg Enteric Tablet PO 81 mg BID DIANE Administration Benztropine Mesylate 0.5 mg 11/26/24 21:25 12/01/24 06:04 Benztropine Mesylate 0.5 Mg Tablet PO 0.5 mg 0700,1730,2100 DIANE Administration Bisacodyl 10 mg 11/26/24 21:18 Bisacodyl 5 Mg Tablet Ec PO DAILY PRN constipation Bismuth Subsalicylate 524 mg 11/26/24 21:30 Bismuth Subsalicylate 262 Mg Chewable Tablet PO QID PRN diarrhea Calcium Carbonate 500 mg 11/27/24 09:00 12/01/24 09:01 Calcium Carbonate (Oscal) 500 Mg Tablet PO 500 mg BID DIANE Administration Divalproex Sodium 500 mg 11/26/24 21:25 12/01/24 09:00 Divalproex Sodium Er 500 Mg Tab.24h PO 500 mg Q12HR DIANE Administration Docusate Sodium 100 mg 11/26/24 21:25 12/01/24 06:04 Docusate Sodium 100 Mg Capsule PO 100 mg 0700,2100 DIANE Administration Folic Acid 1 mg 11/27/24 09:00 12/01/24 09:01 Folic Acid 1 Mg Tablet PO 1 mg DAILY DIANE Administration Guaifenesin 200 mg 11/26/24 21:18 Guaifenesin 200 Mg/10 Ml Udc PO Q4H PRN cough Hydromorphone HCl 1 mg 11/29/24 14:37 11/29/24 15:18 Hydromorphone Hcl Inj (*Crx) 2 Mg/Ml Vial IV PUSH 1 mg Q2H PRN Administration Breakthrough Pain Rated 7-10 or NPO Hydromorphone HCl 0.5 mg 11/29/24 14:37 Hydromorphone Hcl Inj (*Crx) 2 Mg/Ml Vial IV PUSH Q2H PRN Breakthrough Pain Rated 4-6 or NPO Hydroxyzine Pamoate 50 mg 11/27/24 09:00 12/01/24 09:01 Hydroxyzine Pamoate 25 Mg Capsule PO 50 mg TID DIANE Administration Ibuprofen 800 mg in 200 mls @ 400 mls/hr 11/29/24 14:32 Caldolor 800 Mg/200 Ml IVPB Q6H PRN Breakthrough Pain Rated 1-3 or NPO Latanoprost 1 drop 11/26/24 21:30 11/30/24 21:01 Latanoprost 0.005% Op Soln 2.5 Ml Btl EACH EYE 1 drop HS DIANE Administration Naloxone HCl 0.1 mg 11/29/24 06:24 11/29/24 08:04 Naloxone Hcl 0.4 Mg/Ml Vial IV PUSH 0.1 mg Q5MIN PRN Administration somnolence Naloxone HCl 0.1 mg 11/29/24 14:32 Naloxone Hcl 0.4 Mg/Ml Vial IV PUSH Q2M PRN Opiate Reversal Nonformulary Drug 0 mg 11/27/24 09:00 12/01/24 09:05 Lurasidone 40 Mg PO 12/27/24 08:59 120 mg Tablet DAILY DIANE Administration Ondansetron HCl 4 mg 11/29/24 11:43 Ondansetron Inj 4 Mg/2 Ml Vial IV PUSH ONCE PRN Nausea Ondansetron HCl 4 mg 11/29/24 14:32 Ondansetron Inj 4 Mg/2 Ml Vial IV PUSH Q4H PRN Nausea And Vomiting Oxycodone/Acetaminophen 1 tablet 11/29/24 14:32 11/30/24 00:39 Oxycodone/Acetaminophen (*Crx) 5-325 Mg Tablet PO 1 tablet Q4H PRN Administration Pain Rated 4-6 Oxycodone/Acetaminophen 1 tab 11/29/24 14:32 12/01/24 09:00 Oxycodone/Acetaminophen (*Crx) 10-325 Mg Tablet PO 1 tab Q6H PRN Administration Pain Rated 7-10 Polyethylene Glycol 17 gm 11/30/24 09:00 12/01/24 09:01 Polyethylene Glycol 3350 17 Gm Powd.Pack PO 17 gm QAM DIANE Administration Risperidone 4 mg 11/26/24 21:30 12/01/24 06:05 Risperidone 1 Mg Tablet PO 4 mg 0700,2100 DIANE Administration Senna/Docusate Sodium 2 tab 11/29/24 17:00 12/01/24 09:00 Senna/Docusate Sodium Tablet PO 2 tab BID DIANE Administration Sodium Chloride 1 gm 11/27/24 09:00 12/01/24 09:00 Sodium Chloride 1 Gm Tablet PO 1 gm BID DIANE Administration Valacyclovir HCl 1,000 mg 11/26/24 21:20 12/01/24 09:00 Valacyclovir Hcl 500 Mg Tablet PO 1,000 mg Q12HR DIANE Administration Venlafaxine HCl 150 mg 11/27/24 07:00 12/01/24 06:05 Venlafaxine Hcl Xr 75 Mg Cap.Er.24h PO 150 mg DAILY@0700 DIANE Administration Vitamin D 25 mcg 11/27/24 09:00 12/01/24 09:00 Cholecalciferol (Vitamin D3) 25 Mcg (1,000 Units) Tablet PO 25 mcg DAILY DIANE Administration Radiology Results: ITS Impressions Cervical Spine CT 11/26/24 11:48 IMPRESSION: 1. Mild cervical spondylosis and chronic appearing mild T2 compression fracture. No acute osseous abnormality. Head CT 11/26/24 11:54 IMPRESSION: No acute intracranial findings. Chest X-Ray 11/26/24 12:26 IMPRESSION: No acute cardiopulmonary pathology. Hip/Pelvis X-Ray 11/26/24 12:33 IMPRESSION: 1. Nondisplaced transcervical fracture of the proximal left femur. Labs Labs: Laboratory Results - last 24 hr 12/01/24 05:41 WBC 8.3 RBC 3.68 L Hgb 11.9 L Hct 34.9 L MCV 94.8 MCH 32.3 MCHC 34.1 RDW 14.6 H Plt Count 166 MPV 9.8 Sodium 130 L Potassium 4.5 Chloride 93 L Carbon Dioxide 33 H Anion Gap 4 BUN 20 Creatinine 0.78 Estim Creat Clear Calc 97 Estimated GFR > 60 Glucose 99 Calcium 9.3 Magnesium 1.7
[2024-12-01] MEDS: COSYNTROPIN 0.25 MG/ML VIAL IV PUSH (11:31)
--- NOTE | 2024-12-01 12:26 | PM.IMPN ---
Progress Note: A&P Assessment and Plan (1) Fracture of femur, left, closed: Qualifiers: Encounter type: initial encounter Femur location: midcervical Fracture alignment: nondisplaced Qualified Code(s): S72.035A - Nondisplaced midcervical fracture of left femur, initial encounter for closed fracture Code(s): S72.92XA - Unspecified fracture of left femur, initial encounter for closed fracture Status: Acute Assessment and Plan: - GLF resulting in a nondisplaced transcervical fracture of the proximal left femur. - ortho consulted - analgesics prn - NPO at midnight - bed rest Currently on hold due to hyponatremia (2) Hyponatremia: Code(s): E87.1 - Hypo-osmolality and hyponatremia Status: Acute Assessment and Plan: - Na 122, previously 129 in 2022 - check serum osmolality, urine osmolality, urine sodium 81, protein to creatinine ratio 0.16, urine creatinine 1 O2 - bmp Q4H - reportedly chronic. on Risperidone, Lurasidone, Divalproex, Effexor, Benztropine which are likely contributing. patient also reportedly does not stick to his fluid restriction and will sneak water - trend renal function - NS at 150 mL/hr x1L received 11/26/2024 2:00 p.m. with worsening of sodium level indicating possibly SIADH. - continue NaCl tabs 1 gm BID Recheck sodium this afternoon. May need to add Lasix along with salt tablet. Nephrology consult Will check thyroid function and cortisol level random Plan Patient was plan for left hip surgery on 11/28 however it was postponed due to hyponatremia 2/2 patient psych medications reportedly chronic. on Risperidone, Lurasidone, Divalproex, Effexor, Benztropine which are likely contributing. patient also reportedly does not stick to his fluid restriction and will sneak water, today patient sodium is improving to 129, patient had left hip ORIF 11/29/24, POD# 2, Patient reports soreness in left hip. Denies any chest pain or shortness of breath. patient will work with PT/OT and will benefit. Diet: regular, fluid restriction GI Prophylaxis: NA DVT Prophylaxis: SCDs IV fluids: NS at 150 mL/hr x1L Lines/Tubes: peripheral IV Code Status: full code Subjective Date/time seen: 12/01/24 12:26 Interval history: Patient was plan for left hip surgery on 11/28 however it was postponed due to hyponatremia 2/2 patient psych medications reportedly chronic. on Risperidone, Lurasidone, Divalproex, Effexor, Benztropine which are likely contributing. patient also reportedly does not stick to his fluid restriction and will sneak water, today patient sodium is improving to 129, patient had left hip ORIF 11/29/24, POD# 2, Patient reports soreness in left hip. Denies any chest pain or shortness of breath. patient will work with PT/OT and will benefit. Review of Systems Review of Systems: All systems reviewed & are unremarkable except as noted in HPI and below Exam Narrative: Patient is comfortable, NAD HEENT: eyes are clear and none icteric LUNGS:CTA HEART: RR S1S2 ABD: BS+, Soft and nontender Lower extremities: no edema SKIN: nonjaundiced Neuro: grossly intact. Objective Data Vital Signs Vital Signs: Vital Signs - 24 hr 11/30/24 16:17 11/30/24 16:45 11/30/24 20:00 Temperature 35.8 C L Pulse Rate 93 94 63 Respiratory Rate 16 Blood Pressure 120/68 Pulse Oximetry 95 Oxygen Delivery 11/30/24 21:46 12/01/24 00:00 12/01/24 04:00 Temperature 36.9 C Pulse Rate 85 60 60 Respiratory Rate 18 Blood Pressure 130/78 Pulse Oximetry 97 Oxygen Delivery 12/01/24 06:30 12/01/24 07:35 12/01/24 12:00 Temperature 36.8 C Pulse Rate 80 80 102 H Respiratory Rate 18 18 Blood Pressure 150/81 H Pulse Oximetry 97 97 Oxygen Delivery Room Air Intake/Output Intake/Output: Intake & Output 11/28/24 11/29/24 11/30/24 12/01/24 23:59 23:59 23:59 23:59 Intake Total 480 1049 930 120 Output Total 600 0 1550 500 Balance -120 4004 -810 -380 Meds/Results Medications: Active Medications Generic Name Dose Route Start Last Admin Trade Name Freq PRN Reason Stop Dose Admin Acetaminophen 650 mg 11/26/24 14:45 Acetaminophen 325 Mg Tablet PO Q6H PRN Fever Acetaminophen 500 mg 11/29/24 14:32 Acetaminophen 500 Mg Tablet PO Q6H PRN Pain Rated 1-3 Al Hydrox/Mg Hydrox/Simethicone 30 ml 11/26/24 21:26 Mag Hydrox/Al Hydrox/Simeth 30 Ml Udc PO Q4H PRN Indigestion Aspirin 81 mg 11/29/24 17:00 12/01/24 09:00 Aspirin 81 Mg Enteric Tablet PO 81 mg BID DIANE Administration Benztropine Mesylate 0.5 mg 11/26/24 21:25 12/01/24 06:04 Benztropine Mesylate 0.5 Mg Tablet PO 0.5 mg 0700,1730,2100 DIANE Administration Bisacodyl 10 mg 11/26/24 21:18 Bisacodyl 5 Mg Tablet Ec PO DAILY PRN constipation Bismuth Subsalicylate 524 mg 11/26/24 21:30 Bismuth Subsalicylate 262 Mg Chewable Tablet PO QID PRN diarrhea Calcium Carbonate 500 mg 11/27/24 09:00 12/01/24 09:01 Calcium Carbonate (Oscal) 500 Mg Tablet PO 500 mg BID [facility] Administration Divalproex Sodium 500 mg 11/26/24 21:25 12/01/24 09:00 Divalproex Sodium Er 500 Mg Tab.24h PO 500 mg Q12HR DIANE Administration Docusate Sodium 100 mg 11/26/24 21:25 12/01/24 06:04 Docusate Sodium 100 Mg Capsule PO 100 mg 0700,2100 [facility] Administration Folic Acid 1 mg 11/27/24 09:00 12/01/24 09:01 Folic Acid 1 Mg Tablet PO 1 mg DAILY DIANE Administration Guaifenesin 200 mg 11/26/24 21:18 Guaifenesin 200 Mg/10 Ml Udc PO Q4H PRN cough Hydromorphone HCl 1 mg 11/29/24 14:37 11/29/24 15:18 Hydromorphone Hcl Inj (*Crx) 2 Mg/Ml Vial IV PUSH 1 mg Q2H PRN Administration Breakthrough Pain Rated 7-10 or NPO Hydromorphone HCl 0.5 mg 11/29/24 14:37 Hydromorphone Hcl Inj (*Crx) 2 Mg/Ml Vial IV PUSH Q2H PRN Breakthrough Pain Rated 4-6 or NPO Hydroxyzine Pamoate 50 mg 11/27/24 09:00 12/01/24 09:01 Hydroxyzine Pamoate 25 Mg Capsule PO 50 mg TID DIANE Administration Ibuprofen 800 mg in 200 mls @ 400 mls/hr 11/29/24 14:32 Caldolor 800 Mg/200 Ml IVPB Q6H PRN Breakthrough Pain Rated 1-3 or NPO Latanoprost 1 drop 11/26/24 21:30 11/30/24 21:01 Latanoprost 0.005% Op Soln 2.5 Ml Btl EACH EYE 1 drop HS DIANE Administration Naloxone HCl 0.1 mg 11/29/24 06:24 11/29/24 08:04 Naloxone Hcl 0.4 Mg/Ml Vial IV PUSH 0.1 mg Q5MIN PRN Administration somnolence Naloxone HCl 0.1 mg 11/29/24 14:32 Naloxone Hcl 0.4 Mg/Ml Vial IV PUSH Q2M PRN Opiate Reversal Nonformulary Drug 0 mg 11/27/24 09:00 12/01/24 09:05 Lurasidone 40 Mg PO 12/27/24 08:59 120 mg Tablet DAILY DIANE Administration Ondansetron HCl 4 mg 11/29/24 11:43 Ondansetron Inj 4 Mg/2 Ml Vial IV PUSH ONCE PRN Nausea Ondansetron HCl 4 mg 11/29/24 14:32 Ondansetron Inj 4 Mg/2 Ml Vial IV PUSH Q4H PRN Nausea And Vomiting Oxycodone/Acetaminophen 1 tablet 11/29/24 14:32 11/30/24 00:39 Oxycodone/Acetaminophen (*Crx) 5-325 Mg Tablet PO 1 tablet Q4H PRN Administration Pain Rated 4-6 Oxycodone/Acetaminophen 1 tab 11/29/24 14:32 12/01/24 09:00 Oxycodone/Acetaminophen (*Crx) 10-325 Mg Tablet PO 1 tab Q6H PRN Administration Pain Rated 7-10 Polyethylene Glycol 17 gm 11/30/24 09:00 12/01/24 09:01 Polyethylene Glycol 3350 17 Gm Powd.Pack PO 17 gm QAM DIANE Administration Risperidone 4 mg 11/26/24 21:30 12/01/24 06:05 Risperidone 1 Mg Tablet PO 4 mg 0700,2100 DIANE Administration Senna/Docusate Sodium 2 tab 11/29/24 17:00 12/01/24 09:00 Senna/Docusate Sodium Tablet PO 2 tab BID DIANE Administration Sodium Chloride 1 gm 11/27/24 09:00 12/01/24 09:00 Sodium Chloride 1 Gm Tablet PO 1 gm BID DIANE Administration Valacyclovir HCl 1,000 mg 11/26/24 21:20 12/01/24 09:00 Valacyclovir Hcl 500 Mg Tablet PO 1,000 mg Q12HR DIANE Administration Venlafaxine HCl 150 mg 11/27/24 07:00 12/01/24 06:05 Venlafaxine Hcl Xr 75 Mg Cap.Er.24h PO 150 mg DAILY@0700 DIANE Administration Vitamin D 25 mcg 11/27/24 09:00 12/01/24 09:00 Cholecalciferol (Vitamin D3) 25 Mcg (1,000 Units) Tablet PO 25 mcg DAILY DIANE Administration Radiology Results: ITS Impressions Cervical Spine CT 11/26/24 11:48 IMPRESSION: 1. Mild cervical spondylosis and chronic appearing mild T2 compression fracture. No acute osseous abnormality. Head CT 11/26/24 11:54 IMPRESSION: No acute intracranial findings. Chest X-Ray 11/26/24 12:26 IMPRESSION: No acute cardiopulmonary pathology. Hip/Pelvis X-Ray 11/26/24 12:33 IMPRESSION: 1. Nondisplaced transcervical fracture of the proximal left femur. Labs Labs: Laboratory Results - last 24 hr 12/01/24 12/01/24 05:41 11:10 WBC 8.3 RBC 3.68 L Hgb 11.9 L Hct 34.9 L MCV 94.8 MCH 32.3 MCHC 34.1 RDW 14.6 H Plt Count 166 MPV 9.8 Sodium 130 L Potassium 4.5 Chloride 93 L Carbon Dioxide 33 H Anion Gap 4 BUN 20 Creatinine 0.78 Estim Creat Clear Calc 97 Estimated GFR > 60 Glucose 99 Calcium 9.3 Magnesium 1.7 Cortisol Baseline 10.70 Quality VTE Prophylaxis VTE prophylaxis: mechanical ordered
[2024-12-01 14:00] LABS: Cortisol 60 Minute 30.30 ug/dL
[2024-12-01] MEDS: LATANOPROST 0.005% OP SOLN 2.5 ML BTL 1 DROP EACH EYE (21:07)
[2024-12-02] VITALS (8 sets, daily range): BP systolic 122–128; BP diastolic 68–71; PULSE 81–108; RESP 14–18; TEMP 36.2–36.4; O2SAT 94–99
[2024-12-02] MEDS: BENZTROPINE MESYLATE 0.5 MG TABLET PO ×3 (06:01→20:19)
[2024-12-02] MEDS: DOCUSATE SODIUM 100 MG CAPSULE PO ×2 (06:01→20:19)
[2024-12-02] MEDS: VENLAFAXINE HCL XR 75 MG CAP.ER.24H 150 MG PO (06:01)
[2024-12-02 06:26] LABS: Hematocrit 29.6 % (42.0-52.0); Hemoglobin 10.2 g/dL (14.0-18.0); Mean Corpuscular HGB Conc 34.5 g/dl (32-36); Mean Corpuscular Hemoglobin 32.9 pg (26-34); Mean Corpuscular Volume 95.5 fl (80-100); Platelet Count Result 154 k/mm3 (150-375); Red Blood Count 3.10 M/mm3 (4.6-6.20); White Blood Count 9.1 K/mm3 (4.5-10.0)
[2024-12-02 06:54] LABS: Anion Gap 3 mmol/L (4-12); Blood Urea Nitrogen 16 mg/dL (9-20); Calcium 8.9 mg/dL (8.4-10.2); Carbon Dioxide 31 mmol/L (22-30); Chloride 95 mmol/L (98-107); Estimated CRCL calculation 101 ml/min; Estimated Glomerular Filt Rate > 60; Glucose 91 mg/dL (65-110); Magnesium 1.8 mg/dL (1.6-2.3); Potassium 4.1 mmol/L (3.4-5.0); Sodium 129 mmol/L (137-145)
[2024-12-02] MEDS: CHOLECALCIFEROL (VITAMIN D3) 25 MCG (1,000 UNITS) TABLET PO (09:35)
[2024-12-02] MEDS: ASPIRIN 81 MG ENTERIC TABLET PO ×2 (09:35→16:41)
[2024-12-02] MEDS: [UNRECOGNIZED DRUG - OTHER] PO (09:36)
[2024-12-02] MEDS: DIVALPROEX SODIUM ER 500 MG TAB.24H PO ×2 (09:36→20:16)
[2024-12-02] MEDS: LURASIDONE 40 MG PO (09:36)
[2024-12-02] MEDS: SENNA/DOCUSATE SODIUM TABLET 2 TAB PO ×2 (09:37→16:41)
[2024-12-02] MEDS: SODIUM CHLORIDE 1 GM TABLET PO ×2 (09:37→16:41)
[2024-12-02] MEDS: FOLIC ACID 1 MG TABLET PO (09:37)
[2024-12-02] MEDS: CALCIUM CARBONATE (OSCAL) 500 MG TABLET PO ×2 (09:37→16:40)
--- NOTE | 2024-12-02 15:29 | P.PNNP_ITS ---
Progress Note: A&P Assessment and Plan (1) Hyponatremia: Code(s): E87.1 - Hypo-osmolality and hyponatremia Status: Acute Assessment and Plan: * acute on chronic * has been present as far back as 2018 if not longer -- seems to average ~ 127 - 133mmol/L * 130mmol/L in April 2024 * 129mmol/L in January 2023 (by [facility] records) * 127mmol/L in December 2022 * 133mmol/L in July 2018 * on salt tablets as an outpatient * chronic issue from: * psychiatric medications (risperidone, lurasidone, & effexor) * excessive free water intake * smoking history * acute issue from: * pain * pain medications * prerenal factors * evaluation to date noted: * serum/urine osmolality c/w SIADH. * urine electrolytes pre-renal * TSH okay * cortisol below 15. cortrosyn stim test was negative so adrenals okay * checking SPEP/UPEP. These are still pending. * improvement in sodium with salt tablets and fluid restriction * sodium now at baseline. * continue current approach * okay for discharge from the kidney standpoint (2) Fracture of femur, left, closed: Qualifiers: Encounter type: initial encounter Femur location: midcervical Fracture alignment: nondisplaced Qualified Code(s): S72.035A - Nondisplaced midcervical fracture of left femur, initial encounter for closed fracture Code(s): S72.92XA - Unspecified fracture of left femur, initial encounter for closed fracture Status: Acute Plan * X-ray imaging noted: * non-displaced femoral neck fracture with impaction. * Orthopedic Surgery following * s/p percutaneous pinning left hip with 3 cannulated screws (on 11/29) * anticipate 4-6 weeks rehab with PWB using a walker * local wound care * PT/OT as tolerated * pt up in a chair at times Subjective Date/time seen: 12/02/24 15:29 Interval history: pt is alert. feeling okay. Exam Narrative: General: WD/WN male in NAD Heart: normal S1 and S2; no rub or gallop Lungs: clear bilaterally Abdomen: soft, nontender, nondistended, positive bowel sounds Extremities: no cyanosis or clubbing; no edema Skin: no rash Objective Data Vital Signs Vital Signs: Vital Signs - 24 hr 12/01/24 16:00 12/01/24 20:00 12/01/24 21:10 Temperature Pulse Rate 96 91 Respiratory Rate Blood Pressure Pulse Oximetry 95 Oxygen Delivery Room Air 12/01/24 21:14 12/01/24 21:50 12/02/24 00:05 Temperature 97.8 F Pulse Rate 87 88 Respiratory Rate 18 Blood Pressure 124/61 Pulse Oximetry 95 95 Oxygen Delivery Room Air 12/02/24 04:01 12/02/24 05:00 12/02/24 08:00 Temperature 97.5 F L Pulse Rate 88 81 Respiratory Rate 18 Blood Pressure 122/69 Pulse Oximetry 99 Oxygen Delivery Room Air 12/02/24 13:00 Temperature 97.2 F L Pulse Rate 105 H Respiratory Rate 14 Blood Pressure 128/71 Pulse Oximetry 95 Oxygen Delivery Intake/Output Intake/Output: Intake & Output 11/29/24 11/30/24 12/01/24 12/02/24 23:59 23:59 23:59 23:59 Intake Total 1049 930 360 790 Output Total 0 1550 800 Balance 1049 620 -440 790 Meds/Results Medications: Active Medications Generic Name Dose Route Start Last Admin Trade Name Freq PRN Reason Stop Dose Admin Acetaminophen 650 mg 11/26/24 14:45 Acetaminophen 325 Mg Tablet PO Q6H PRN Fever Acetaminophen 500 mg 11/29/24 14:32 Acetaminophen 500 Mg Tablet PO Q6H PRN Pain Rated 1-3 Al Hydrox/Mg Hydrox/Simethicone 30 ml 11/26/24 21:26 Mag Hydrox/Al Hydrox/Simeth 30 Ml Udc PO Q4H PRN Indigestion Aspirin 81 mg 11/29/24 17:00 12/02/24 09:35 Aspirin 81 Mg Enteric Tablet PO 81 mg BID DIANE Administration Benztropine Mesylate 0.5 mg 11/26/24 21:25 12/02/24 06:01 Benztropine Mesylate 0.5 Mg Tablet PO 0.5 mg 0700,1730,2100 DIANE Administration Bisacodyl 10 mg 11/26/24 21:18 Bisacodyl 5 Mg Tablet Ec PO DAILY PRN constipation Bismuth Subsalicylate 524 mg 11/26/24 21:30 Bismuth Subsalicylate 262 Mg Chewable Tablet PO QID PRN diarrhea Calcium Carbonate 500 mg 11/27/24 09:00 12/02/24 09:37 Calcium Carbonate (Oscal) 500 Mg Tablet PO 500 mg BID DIANE Administration Divalproex Sodium 500 mg 11/26/24 21:25 12/02/24 09:36 Divalproex Sodium Er 500 Mg Tab.24h PO 500 mg Q12HR DIANE Administration Docusate Sodium 100 mg 11/26/24 21:25 12/02/24 06:01 Docusate Sodium 100 Mg Capsule PO 100 mg 0700,2100 DIANE Administration Folic Acid 1 mg 11/27/24 09:00 12/02/24 09:37 Folic Acid 1 Mg Tablet PO 1 mg DAILY DIANE Administration Guaifenesin 200 mg 11/26/24 21:18 Guaifenesin 200 Mg/10 Ml Udc PO Q4H PRN cough Hydromorphone HCl 1 mg 11/29/24 14:37 11/29/24 15:18 Hydromorphone Hcl Inj (*Crx) 2 Mg/Ml Vial IV PUSH 1 mg Q2H PRN Administration Breakthrough Pain Rated 7-10 or NPO Hydromorphone HCl 0.5 mg 11/29/24 14:37 Hydromorphone Hcl Inj (*Crx) 2 Mg/Ml Vial IV PUSH Q2H PRN Breakthrough Pain Rated 4-6 or NPO Hydroxyzine Pamoate 50 mg 11/27/24 09:00 12/02/24 13:08 Hydroxyzine Pamoate 25 Mg Capsule PO 50 mg TID DIANE Administration Ibuprofen 800 mg in 200 mls @ 400 mls/hr 11/29/24 14:32 Caldolor 800 Mg/200 Ml IVPB Q6H PRN Breakthrough Pain Rated 1-3 or NPO Latanoprost 1 drop 11/26/24 21:30 12/01/24 21:07 Latanoprost 0.005% Op Soln 2.5 Ml Btl EACH EYE 1 drop HS DIANE Administration Naloxone HCl 0.1 mg 11/29/24 06:24 11/29/24 08:04 Naloxone Hcl 0.4 Mg/Ml Vial IV PUSH 0.1 mg Q5MIN PRN Administration somnolence Naloxone HCl 0.1 mg 11/29/24 14:32 Naloxone Hcl 0.4 Mg/Ml Vial IV PUSH Q2M PRN Opiate Reversal Nonformulary Drug 0 mg 11/27/24 09:00 12/02/24 09:36 Lurasidone 40 Mg PO 12/27/24 08:59 120 mg Tablet DAILY DIANE Administration Ondansetron HCl 4 mg 11/29/24 11:43 Ondansetron Inj 4 Mg/2 Ml Vial IV PUSH ONCE PRN Nausea Ondansetron HCl 4 mg 11/29/24 14:32 Ondansetron Inj 4 Mg/2 Ml Vial IV PUSH Q4H PRN Nausea And Vomiting Oxycodone/Acetaminophen 1 tablet 11/29/24 14:32 11/30/24 00:39 Oxycodone/Acetaminophen (*Crx) 5-325 Mg Tablet PO 1 tablet Q4H PRN Administration Pain Rated 4-6 Oxycodone/Acetaminophen 1 tab 11/29/24 14:32 12/01/24 16:17 Oxycodone/Acetaminophen (*Crx) 10-325 Mg Tablet PO 1 tab Q6H PRN Administration Pain Rated 7-10 Polyethylene Glycol 17 gm 11/30/24 09:00 12/02/24 09:37 Polyethylene Glycol 3350 17 Gm Powd.Pack PO 17 gm QAM DIANE Administration Risperidone 4 mg 11/26/24 21:30 12/02/24 06:01 Risperidone 1 Mg Tablet PO 4 mg 0700,2100 DIANE Administration Senna/Docusate Sodium 2 tab 11/29/24 17:00 12/02/24 09:37 Senna/Docusate Sodium Tablet PO 2 tab BID DIANE Administration Sodium Chloride 1 gm 11/27/24 09:00 12/02/24 09:37 Sodium Chloride 1 Gm Tablet PO 1 gm BID DIANE Administration Valacyclovir HCl 1,000 mg 11/26/24 21:20 12/02/24 09:36 Valacyclovir Hcl 500 Mg Tablet PO 1,000 mg Q12HR DIANE Administration Venlafaxine HCl 150 mg 11/27/24 07:00 12/02/24 06:01 Venlafaxine Hcl Xr 75 Mg Cap.Er.24h PO 150 mg DAILY@0700 DIANE Administration Vitamin D 25 mcg 11/27/24 09:00 12/02/24 09:35 Cholecalciferol (Vitamin D3) 25 Mcg (1,000 Units) Tablet PO 25 mcg DAILY DIANE Administration Radiology Results: ITS Impressions Cervical Spine CT 11/26/24 11:48 IMPRESSION: 1. Mild cervical spondylosis and chronic appearing mild T2 compression fracture. No acute osseous abnormality. Head CT 11/26/24 11:54 IMPRESSION: No acute intracranial findings. Chest X-Ray 11/26/24 12:26 IMPRESSION: No acute cardiopulmonary pathology. Hip/Pelvis X-Ray 11/26/24 12:33 IMPRESSION: 1. Nondisplaced transcervical fracture of the proximal left femur. Labs Labs: Laboratory Results - last 24 hr 12/02/24 05:25 WBC 9.1 RBC 3.10 L Hgb 10.2 L Hct 29.6 L MCV 95.5 MCH 32.9 MCHC 34.5 RDW 14.8 H Plt Count 154 MPV 9.5 Sodium 129 L Potassium 4.1 Chloride 95 L Carbon Dioxide 31 H Anion Gap 3 L BUN 16 Creatinine 0.75 Estim Creat Clear Calc 101 Estimated GFR > 60 Glucose 91 Calcium 8.9 Magnesium 1.8
--- NOTE | 2024-12-02 17:00 | PM.IMPN ---
Progress Note: A&P Assessment and Plan (1) Fracture of femur, left, closed: Qualifiers: Encounter type: initial encounter Femur location: midcervical Fracture alignment: nondisplaced Qualified Code(s): S72.035A - Nondisplaced midcervical fracture of left femur, initial encounter for closed fracture Code(s): S72.92XA - Unspecified fracture of left femur, initial encounter for closed fracture Status: Acute Assessment and Plan: - GLF resulting in a nondisplaced transcervical fracture of the proximal left femur. - ortho consulted - analgesics prn - NPO at midnight - bed rest Currently on hold due to hyponatremia (2) Hyponatremia: Code(s): E87.1 - Hypo-osmolality and hyponatremia Status: Acute Assessment and Plan: - Na 122, previously 129 in 2022 - check serum osmolality, urine osmolality, urine sodium 81, protein to creatinine ratio 0.16, urine creatinine 1 O2 - bmp Q4H - reportedly chronic. on Risperidone, Lurasidone, Divalproex, Effexor, Benztropine which are likely contributing. patient also reportedly does not stick to his fluid restriction and will sneak water - trend renal function - NS at 150 mL/hr x1L received 11/26/2024 2:00 p.m. with worsening of sodium level indicating possibly SIADH. - continue NaCl tabs 1 gm BID Recheck sodium this afternoon. May need to add Lasix along with salt tablet. Nephrology consult Will check thyroid function and cortisol level random Plan Patient was plan for left hip surgery on 11/28 however it was postponed due to hyponatremia 2/2 patient psych medications reportedly chronic. on Risperidone, Lurasidone, Divalproex, Effexor, Benztropine which are likely contributing. patient also reportedly does not stick to his fluid restriction and will sneak water, today patient sodium is improving to 129, patient had left hip ORIF 11/29/24, POD# 3, Patient reports soreness in left hip. Denies any chest pain or shortness of breath. patient will work with PT/OT and will benefit going to rehab. Diet: regular, fluid restriction GI Prophylaxis: NA DVT Prophylaxis: SCDs IV fluids: NS at 150 mL/hr x1L Lines/Tubes: peripheral IV Code Status: full code Subjective Date/time seen: 12/02/24 17:00 Interval history: Patient was plan for left hip surgery on 11/28 however it was postponed due to hyponatremia 2/2 patient psych medications reportedly chronic. on Risperidone, Lurasidone, Divalproex, Effexor, Benztropine which are likely contributing. patient also reportedly does not stick to his fluid restriction and will sneak water, today patient sodium is improving to 129, patient had left hip ORIF 11/29/24, POD# 3, Patient reports soreness in left hip. Denies any chest pain or shortness of breath. patient will work with PT/OT and will benefit going to rehab. Review of Systems Review of Systems: All systems reviewed & are unremarkable except as noted in HPI and below Exam Narrative: Patient is comfortable, NAD HEENT: eyes are clear and none icteric LUNGS:CTA HEART: RR S1S2 ABD: BS+, Soft and nontender Lower extremities: no edema SKIN: nonjaundiced Neuro: grossly intact. Objective Data Vital Signs Vital Signs: Vital Signs - 24 hr 12/01/24 20:00 12/01/24 21:10 12/01/24 21:14 Temperature Pulse Rate 91 Respiratory Rate Blood Pressure Pulse Oximetry 95 95 Oxygen Delivery Room Air Room Air 12/01/24 21:50 12/02/24 00:05 12/02/24 04:01 Temperature 36.6 C Pulse Rate 87 88 88 Respiratory Rate 18 Blood Pressure 124/61 Pulse Oximetry 95 Oxygen Delivery 12/02/24 05:00 12/02/24 08:00 12/02/24 13:00 Temperature 36.4 C L 36.2 C L Pulse Rate 81 105 H Respiratory Rate 18 14 Blood Pressure 122/69 128/71 Pulse Oximetry 99 95 Oxygen Delivery Room Air Intake/Output Intake/Output: Intake & Output 11/29/24 11/30/24 12/01/24 12/02/24 23:59 23:59 23:59 23:59 Intake Total 1049 930 360 790 Output Total 0 1550 800 Balance 1049 -730 -440 790 Meds/Results Medications: Active Medications Generic Name Dose Route Start Last Admin Trade Name Freq PRN Reason Stop Dose Admin Acetaminophen 650 mg 11/26/24 14:45 Acetaminophen 325 Mg Tablet PO Q6H PRN Fever Acetaminophen 500 mg 11/29/24 14:32 Acetaminophen 500 Mg Tablet PO Q6H PRN Pain Rated 1-3 Al Hydrox/Mg Hydrox/Simethicone 30 ml 11/26/24 21:26 Mag Hydrox/Al Hydrox/Simeth 30 Ml Udc PO Q4H PRN Indigestion Aspirin 81 mg 11/29/24 17:00 12/02/24 16:41 Aspirin 81 Mg Enteric Tablet PO 81 mg BID DIANE Administration Benztropine Mesylate 0.5 mg 11/26/24 21:25 12/02/24 06:01 Benztropine Mesylate 0.5 Mg Tablet PO 0.5 mg 0700,1730,2100 DIANE Administration Bisacodyl 10 mg 11/26/24 21:18 Bisacodyl 5 Mg Tablet Ec PO DAILY PRN constipation Bismuth Subsalicylate 524 mg 11/26/24 21:30 Bismuth Subsalicylate 262 Mg Chewable Tablet PO QID PRN diarrhea Calcium Carbonate 500 mg 11/27/24 09:00 12/02/24 16:40 Calcium Carbonate (Oscal) 500 Mg Tablet PO 500 mg BID DIANE Administration Divalproex Sodium 500 mg 11/26/24 21:25 12/02/24 09:36 Divalproex Sodium Er 500 Mg Tab.24h PO 500 mg Q12HR DIANE Administration Docusate Sodium 100 mg 11/26/24 21:25 12/02/24 06:01 Docusate Sodium 100 Mg Capsule PO 100 mg 0700,2100 DIANE Administration Folic Acid 1 mg 11/27/24 09:00 12/02/24 09:37 Folic Acid 1 Mg Tablet PO 1 mg DAILY DIANE Administration Guaifenesin 200 mg 11/26/24 21:18 Guaifenesin 200 Mg/10 Ml Udc PO Q4H PRN cough Hydromorphone HCl 1 mg 11/29/24 14:37 11/29/24 15:18 Hydromorphone Hcl Inj (*Crx) 2 Mg/Ml Vial IV PUSH 1 mg Q2H PRN Administration Breakthrough Pain Rated 7-10 or NPO Hydromorphone HCl 0.5 mg 11/29/24 14:37 Hydromorphone Hcl Inj (*Crx) 2 Mg/Ml Vial IV PUSH Q2H PRN Breakthrough Pain Rated 4-6 or NPO Hydroxyzine Pamoate 50 mg 11/27/24 09:00 12/02/24 16:41 Hydroxyzine Pamoate 25 Mg Capsule PO 50 mg TID DIANE Administration Ibuprofen 800 mg in 200 mls @ 400 mls/hr 11/29/24 14:32 Caldolor 800 Mg/200 Ml IVPB Q6H PRN Breakthrough Pain Rated 1-3 or NPO Latanoprost 1 drop 11/26/24 21:30 12/01/24 21:07 Latanoprost 0.005% Op Soln 2.5 Ml Btl EACH EYE 1 drop HS DIANE Administration Naloxone HCl 0.1 mg 11/29/24 06:24 11/29/24 08:04 Naloxone Hcl 0.4 Mg/Ml Vial IV PUSH 0.1 mg Q5MIN PRN Administration somnolence Naloxone HCl 0.1 mg 11/29/24 14:32 Naloxone Hcl 0.4 Mg/Ml Vial IV PUSH Q2M PRN Opiate Reversal Nonformulary Drug 0 mg 11/27/24 09:00 12/02/24 09:36 Lurasidone 40 Mg PO 12/27/24 08:59 120 mg Tablet DAILY DIANE Administration Ondansetron HCl 4 mg 11/29/24 11:43 Ondansetron Inj 4 Mg/2 Ml Vial IV PUSH ONCE PRN Nausea Ondansetron HCl 4 mg 11/29/24 14:32 Ondansetron Inj 4 Mg/2 Ml Vial IV PUSH Q4H PRN Nausea And Vomiting Oxycodone/Acetaminophen 1 tablet 11/29/24 14:32 11/30/24 00:39 Oxycodone/Acetaminophen (*Crx) 5-325 Mg Tablet PO 1 tablet Q4H PRN Administration Pain Rated 4-6 Oxycodone/Acetaminophen 1 tab 11/29/24 14:32 12/01/24 16:17 Oxycodone/Acetaminophen (*Crx) 10-325 Mg Tablet PO 1 tab Q6H PRN Administration Pain Rated 7-10 Polyethylene Glycol 17 gm 11/30/24 09:00 12/02/24 09:37 Polyethylene Glycol 3350 17 Gm Powd.Pack PO 17 gm QAM DIANE Administration Risperidone 4 mg 11/26/24 21:30 12/02/24 06:01 Risperidone 1 Mg Tablet PO 4 mg 0700,2100 DIANE Administration Senna/Docusate Sodium 2 tab 11/29/24 17:00 12/02/24 16:41 Senna/Docusate Sodium Tablet PO 2 tab BID DIANE Administration Sodium Chloride 1 gm 11/27/24 09:00 12/02/24 16:41 Sodium Chloride 1 Gm Tablet PO 1 gm BID DIANE Administration Valacyclovir HCl 1,000 mg 11/26/24 21:20 12/02/24 09:36 Valacyclovir Hcl 500 Mg Tablet PO 1,000 mg Q12HR DIANE Administration Venlafaxine HCl 150 mg 11/27/24 07:00 12/02/24 06:01 Venlafaxine Hcl Xr 75 Mg Cap.Er.24h PO 150 mg DAILY@0700 DIANE Administration Vitamin D 25 mcg 11/27/24 09:00 12/02/24 09:35 Cholecalciferol (Vitamin D3) 25 Mcg (1,000 Units) Tablet PO 25 mcg DAILY DIANE Administration Radiology Results: ITS Impressions Cervical Spine CT 11/26/24 11:48 IMPRESSION: 1. Mild cervical spondylosis and chronic appearing mild T2 compression fracture. No acute osseous abnormality. Head CT 11/26/24 11:54 IMPRESSION: No acute intracranial findings. Chest X-Ray 11/26/24 12:26 IMPRESSION: No acute cardiopulmonary pathology. Hip/Pelvis X-Ray 11/26/24 12:33 IMPRESSION: 1. Nondisplaced transcervical fracture of the proximal left femur. Labs Labs: Laboratory Results - last 24 hr 12/02/24 05:25 WBC 9.1 RBC 3.10 L Hgb 10.2 L Hct 29.6 L MCV 95.5 MCH 32.9 MCHC 34.5 RDW 14.8 H Plt Count 154 MPV 9.5 Sodium 129 L Potassium 4.1 Chloride 95 L Carbon Dioxide 31 H Anion Gap 3 L BUN 16 Creatinine 0.75 Estim Creat Clear Calc 101 Estimated GFR > 60 Glucose 91 Calcium 8.9 Magnesium 1.8 Quality VTE Prophylaxis VTE prophylaxis: mechanical ordered
[2024-12-02] MEDS: LATANOPROST 0.005% OP SOLN 2.5 ML BTL 1 DROP EACH EYE (20:22)
[2024-12-03] VITALS: PULSE 80
[2024-12-03 04:00] VITALS: PULSE 76
[2024-12-03 05:00] VITALS: BP 119/88; PULSE 75; RESP 18; TEMP 36.5; O2SAT 98
[2024-12-03] MEDS: VENLAFAXINE HCL XR 75 MG CAP.ER.24H 150 MG PO (06:02)
[2024-12-03] MEDS: DOCUSATE SODIUM 100 MG CAPSULE PO (06:02)
[2024-12-03] MEDS: BENZTROPINE MESYLATE 0.5 MG TABLET PO (06:02)
[2024-12-03 06:34] LABS: Hematocrit 34.3 % (42.0-52.0); Hemoglobin 11.6 g/dL (14.0-18.0); Mean Corpuscular HGB Conc 33.8 g/dl (32-36); Mean Corpuscular Hemoglobin 32.3 pg (26-34); Mean Corpuscular Volume 95.5 fl (80-100); Platelet Count Result 197 k/mm3 (150-375); Red Blood Count 3.59 M/mm3 (4.6-6.20); White Blood Count 10.5 K/mm3 (4.5-10.0)
[2024-12-03 07:00] LABS: Anion Gap 5 mmol/L (4-12); Blood Urea Nitrogen 15 mg/dL (9-20); Calcium 9.3 mg/dL (8.4-10.2); Carbon Dioxide 31 mmol/L (22-30); Chloride 92 mmol/L (98-107); Estimated CRCL calculation 102 ml/min; Estimated Glomerular Filt Rate > 60; Glucose 89 mg/dL (65-110); Magnesium 1.7 mg/dL (1.6-2.3); Potassium 4.0 mmol/L (3.4-5.0); Sodium 128 mmol/L (137-145)
[2024-12-03 08:00] VITALS: PULSE 93
--- NOTE | 2024-12-03 09:08 | P.PNNP_ITS ---
Progress Note: A&P Assessment and Plan (1) Hyponatremia: Code(s): E87.1 - Hypo-osmolality and hyponatremia Status: Acute Assessment and Plan: * acute on chronic * has been present as far back as 2018 if not longer -- seems to average ~ 127 - 133mmol/L * 130mmol/L in April 2024 * 129mmol/L in January 2023 (by [facility] records) * 127mmol/L in December 2022 * 133mmol/L in July 2018 * on salt tablets as an outpatient * chronic issue from: * psychiatric medications (risperidone, lurasidone, & effexor) * excessive free water intake * smoking history * acute issue from: * pain * pain medications * prerenal factors * evaluation to date noted: * serum/urine osmolality c/w SIADH. * urine electrolytes pre-renal * TSH okay * cortisol below 15. cortrosyn stim test was negative so adrenals okay * checking SPEP/UPEP. These are still pending. * the patient is on salt tablets plus fluid restriction. * Sodium level stable at around 130 * will continue same management. * Sodium has been stable for a few days. Renal will sign off. * I told the patient that he can follow-up as an outpatient if his primary care physician does not want to manage the sodium (2) Fracture of femur, left, closed: Qualifiers: Encounter type: initial encounter Femur location: midcervical Fracture alignment: nondisplaced Qualified Code(s): S72.035A - Nondisplaced midcervical fracture of left femur, initial encounter for closed fracture Code(s): S72.92XA - Unspecified fracture of left femur, initial encounter for closed fracture Status: Acute Plan * orthopedic surgery seeing. * local wound care * PT/OT as tolerated * pt up in a chair at times Subjective Date/time seen: 12/03/24 09:08 Interval history: patient is alert. He feels okay. No chest pain or shortness of breath Exam Narrative: General: WD/WN male in NAD Heart: normal S1 and S2; no rub or gallop Lungs: clear to auscultation Abdomen: soft, nontender, nondistended, positive bowel sounds Extremities: no edema Skin: no rash or subcu not Objective Data Vital Signs Vital Signs: Vital Signs - 24 hr 12/02/24 12:00 12/02/24 13:00 12/02/24 16:00 Temperature 97.2 F L Pulse Rate 108 H 105 H 90 Respiratory Rate 14 Blood Pressure 128/71 Pulse Oximetry 95 Oxygen Delivery 12/02/24 20:00 12/02/24 21:00 12/03/24 00:00 Temperature 97.6 F Pulse Rate 84 88 80 Respiratory Rate 16 Blood Pressure 125/68 Pulse Oximetry 94 Oxygen Delivery 12/03/24 04:00 12/03/24 05:00 12/03/24 08:00 Temperature 97.7 F Pulse Rate 76 75 Respiratory Rate 18 Blood Pressure 119/88 Pulse Oximetry 98 Oxygen Delivery Room Air Intake/Output Intake/Output: Intake & Output 11/30/24 12/01/24 12/02/24 12/03/24 23:59 23:59 23:59 23:59 Intake Total 930 360 910 630 Output Total 1550 158 392 6137 Balance -620 -440 510 -570 Meds/Results Medications: Active Medications Generic Name Dose Route Start Last Admin Trade Name Freq PRN Reason Stop Dose Admin Acetaminophen 650 mg 11/26/24 14:45 Acetaminophen 325 Mg Tablet PO Q6H PRN Fever Acetaminophen 500 mg 11/29/24 14:32 Acetaminophen 500 Mg Tablet PO Q6H PRN Pain Rated 1-3 Al Hydrox/Mg Hydrox/Simethicone 30 ml 11/26/24 21:26 Mag Hydrox/Al Hydrox/Simeth 30 Ml Udc PO Q4H PRN Indigestion Aspirin 81 mg 11/29/24 17:00 12/02/24 16:41 Aspirin 81 Mg Enteric Tablet PO 81 mg BID DIANE Administration Benztropine Mesylate 0.5 mg 11/26/24 21:25 12/03/24 06:02 Benztropine Mesylate 0.5 Mg Tablet PO 0.5 mg 0700,1730,2100 DIANE Administration Bisacodyl 10 mg 11/26/24 21:18 Bisacodyl 5 Mg Tablet Ec PO DAILY PRN constipation Bismuth Subsalicylate 524 mg 11/26/24 21:30 Bismuth Subsalicylate 262 Mg Chewable Tablet PO QID PRN diarrhea Calcium Carbonate 500 mg 11/27/24 09:00 12/02/24 16:40 Calcium Carbonate (Oscal) 500 Mg Tablet PO 500 mg BID DIANE Administration Divalproex Sodium 500 mg 11/26/24 21:25 12/02/24 20:16 Divalproex Sodium Er 500 Mg Tab.24h PO 500 mg Q12HR DIANE Administration Docusate Sodium 100 mg 11/26/24 21:25 12/03/24 06:02 Docusate Sodium 100 Mg Capsule PO 100 mg 0700,2100 DIANE Administration Folic Acid 1 mg 11/27/24 09:00 12/02/24 09:37 Folic Acid 1 Mg Tablet PO 1 mg DAILY DIANE Administration Guaifenesin 200 mg 11/26/24 21:18 Guaifenesin 200 Mg/10 Ml Udc PO Q4H PRN cough Hydromorphone HCl 1 mg 11/29/24 14:37 11/29/24 15:18 Hydromorphone Hcl Inj (*Crx) 2 Mg/Ml Vial IV PUSH 1 mg Q2H PRN Administration Breakthrough Pain Rated 7-10 or NPO Hydromorphone HCl 0.5 mg 11/29/24 14:37 Hydromorphone Hcl Inj (*Crx) 2 Mg/Ml Vial IV PUSH Q2H PRN Breakthrough Pain Rated 4-6 or NPO Hydroxyzine Pamoate 50 mg 11/27/24 09:00 12/02/24 16:41 Hydroxyzine Pamoate 25 Mg Capsule PO 50 mg TID DIANE Administration Ibuprofen 800 mg in 200 mls @ 400 mls/hr 11/29/24 14:32 Caldolor 800 Mg/200 Ml IVPB Q6H PRN Breakthrough Pain Rated 1-3 or NPO Latanoprost 1 drop 11/26/24 21:30 12/02/24 20:22 Latanoprost 0.005% Op Soln 2.5 Ml Btl EACH EYE 1 drop HS DIANE Administration Naloxone HCl 0.1 mg 11/29/24 06:24 11/29/24 08:04 Naloxone Hcl 0.4 Mg/Ml Vial IV PUSH 0.1 mg Q5MIN PRN Administration somnolence Naloxone HCl 0.1 mg 11/29/24 14:32 Naloxone Hcl 0.4 Mg/Ml Vial IV PUSH Q2M PRN Opiate Reversal Nonformulary Drug 0 mg 11/27/24 09:00 12/02/24 09:36 Lurasidone 40 Mg PO 12/27/24 08:59 120 mg Tablet DAILY DIANE Administration Ondansetron HCl 4 mg 11/29/24 11:43 Ondansetron Inj 4 Mg/2 Ml Vial IV PUSH ONCE PRN Nausea Ondansetron HCl 4 mg 11/29/24 14:32 Ondansetron Inj 4 Mg/2 Ml Vial IV PUSH Q4H PRN Nausea And Vomiting Oxycodone/Acetaminophen 1 tablet 11/29/24 14:32 11/30/24 00:39 Oxycodone/Acetaminophen (*Crx) 5-325 Mg Tablet PO 1 tablet Q4H PRN Administration Pain Rated 4-6 Oxycodone/Acetaminophen 1 tab 11/29/24 14:32 12/01/24 16:17 Oxycodone/Acetaminophen (*Crx) 10-325 Mg Tablet PO 1 tab Q6H PRN Administration Pain Rated 7-10 Polyethylene Glycol 17 gm 11/30/24 09:00 12/02/24 09:37 Polyethylene Glycol 3350 17 Gm Powd.Pack PO 17 gm QAM DIANE Administration Risperidone 4 mg 11/26/24 21:30 12/03/24 06:02 Risperidone 1 Mg Tablet PO 4 mg 0700,2100 DIANE Administration Senna/Docusate Sodium 2 tab 11/29/24 17:00 12/02/24 16:41 Senna/Docusate Sodium Tablet PO 2 tab BID DIANE Administration Sodium Chloride 1 gm 11/27/24 09:00 12/02/24 16:41 Sodium Chloride 1 Gm Tablet PO 1 gm BID DIANE Administration Valacyclovir HCl 1,000 mg 11/26/24 21:20 12/02/24 20:16 Valacyclovir Hcl 500 Mg Tablet PO 1,000 mg Q12HR DIANE Administration Venlafaxine HCl 150 mg 11/27/24 07:00 12/03/24 06:02 Venlafaxine Hcl Xr 75 Mg Cap.Er.24h PO 150 mg DAILY@0700 DIANE Administration Vitamin D 25 mcg 11/27/24 09:00 12/02/24 09:35 Cholecalciferol (Vitamin D3) 25 Mcg (1,000 Units) Tablet PO 25 mcg DAILY DIANE Administration Radiology Results: ITS Impressions Cervical Spine CT 11/26/24 11:48 IMPRESSION: 1. Mild cervical spondylosis and chronic appearing mild T2 compression fracture. No acute osseous abnormality. Head CT 11/26/24 11:54 IMPRESSION: No acute intracranial findings. Chest X-Ray 11/26/24 12:26 IMPRESSION: No acute cardiopulmonary pathology. Hip/Pelvis X-Ray 11/26/24 12:33 IMPRESSION: 1. Nondisplaced transcervical fracture of the proximal left femur. Labs Labs: Laboratory Results - last 24 hr 12/03/24 06:10 WBC 10.5 H RBC 3.59 L Hgb 11.6 L Hct 34.3 L MCV 95.5 MCH 32.3 MCHC 33.8 RDW 14.6 H Plt Count 197 MPV 9.4 Sodium 128 L Potassium 4.0 Chloride 92 L Carbon Dioxide 31 H Anion Gap 5 BUN 15 Creatinine 0.74 Estim Creat Clear Calc 102 Estimated GFR > 60 Glucose 89 Calcium 9.3 Magnesium 1.7
[2024-12-03] MEDS: FOLIC ACID 1 MG TABLET PO (09:19)
[2024-12-03] MEDS: CHOLECALCIFEROL (VITAMIN D3) 25 MCG (1,000 UNITS) TABLET PO (09:19)
[2024-12-03] MEDS: SODIUM CHLORIDE 1 GM TABLET PO (09:19)
[2024-12-03] MEDS: ASPIRIN 81 MG ENTERIC TABLET PO (09:19)
[2024-12-03] MEDS: DIVALPROEX SODIUM ER 500 MG TAB.24H PO (09:19)
[2024-12-03] MEDS: SENNA/DOCUSATE SODIUM TABLET 2 TAB PO (09:19)
[2024-12-03] MEDS: CALCIUM CARBONATE (OSCAL) 500 MG TABLET PO (09:19)
[2024-12-03] MEDS: [UNRECOGNIZED DRUG - OTHER] PO (09:21)
[2024-12-03] MEDS: LURASIDONE 40 MG PO (09:21)
--- NOTE | 2024-12-03 10:09 | PCNWS ---
Weekly nutritional screen. Patient is tolerating current regular diet with adequate intake 75-100%. No weight loss reported. No nutritional recommendations at this time.
--- NOTE | 2024-12-03 10:35 | PM.DS ---
DS: Admitting Diagnosis Discharge Date 12/03/24 Admitting Diagnosis Fall, Hip Pain DS: Discharge Diagnosis Discharge Diagnosis (1) Fracture of femur, left, closed: Qualifiers: Encounter type: initial encounter Femur location: midcervical Fracture alignment: nondisplaced Qualified Code(s): S72.035A - Nondisplaced midcervical fracture of left femur, initial encounter for closed fracture Code(s): S72.92XA - Unspecified fracture of left femur, initial encounter for closed fracture Status: Acute Assessment and Plan: - GLF resulting in a nondisplaced transcervical fracture of the proximal left femur. - ortho consulted - analgesics prn - NPO at midnight - bed rest Currently on hold due to hyponatremia (2) Hyponatremia: Code(s): E87.1 - Hypo-osmolality and hyponatremia Status: Acute Assessment and Plan: - Na 122, previously 129 in 2022 - check serum osmolality, urine osmolality, urine sodium 81, protein to creatinine ratio 0.16, urine creatinine 1 O2 - bmp Q4H - reportedly chronic. on Risperidone, Lurasidone, Divalproex, Effexor, Benztropine which are likely contributing. patient also reportedly does not stick to his fluid restriction and will sneak water - trend renal function - NS at 150 mL/hr x1L received 11/26/2024 2:00 p.m. with worsening of sodium level indicating possibly SIADH. - continue NaCl tabs 1 gm BID Recheck sodium this afternoon. May need to add Lasix along with salt tablet. Nephrology consult Will check thyroid function and cortisol level random Plan Patient was plan for left hip surgery on 11/28 however it was postponed due to hyponatremia 2/2 patient psych medications reportedly chronic. on Risperidone, Lurasidone, Divalproex, Effexor, Benztropine which are likely contributing. patient also reportedly does not stick to his fluid restriction and will sneak water, today patient sodium is improving to 129, patient had left hip ORIF 11/29/24, POD# 3, Patient reports soreness in left hip. Denies any chest pain or shortness of breath. patient will work with PT/OT and will benefit going to rehab. Diet: regular, fluid restriction GI Prophylaxis: NA DVT Prophylaxis: SCDs IV fluids: NS at 150 mL/hr x1L Lines/Tubes: peripheral IV Code Status: full code DS: Summary Hospital Course Hospital Course: Patient was plan for left hip surgery on 11/28 however it was postponed due to hyponatremia 2/2 patient psych medications reportedly chronic. on Risperidone, Lurasidone, Divalproex, Effexor, Benztropine which are likely contributing. patient also reportedly does not stick to his fluid restriction and will sneak water, today patient sodium is improving to 129, patient had left hip ORIF 11/29/24, POD# 4, Patient reports soreness in left hip. Denies any chest pain or shortness of breath. patient will work with PT/OT and will benefit going to rehab. today patient is clinically stable, will discharge patient to rehab today. Time Spent with Patient Time attestation: Total time spent providing and/or coordinating discharge services: Exam Narrative: Patient is comfortable, NAD HEENT: eyes are clear and none icteric LUNGS:CTA HEART: RR S1S2 ABD: BS+, Soft and nontender Lower extremities: no edema SKIN: nonjaundiced Neuro: grossly intact. DS: Data Data Completed and Pending Labs on day of discharge: Labs from last 24 hours 12/03/24 06:10 WBC 10.5 H RBC 3.59 L Hgb 11.6 L Hct 34.3 L MCV 95.5 MCH 32.3 MCHC 33.8 RDW 14.6 H Plt Count 197 MPV 9.4 Sodium 128 L Potassium 4.0 Chloride 92 L Carbon Dioxide 31 H Anion Gap 5 BUN 15 Creatinine 0.74 Estim Creat Clear Calc 102 Estimated GFR > 60 Glucose 89 Calcium 9.3 Magnesium 1.7 Discharge Plan Discharge Attending physician on discharge: Herbie Kerr Consulting providers: Tyron Hancock; Indu Nolan; Meenu Erwin; Tarsha Velásquez; Desiree Méndez; Vincent Welsh; Jt Price; Xander Quintana; Ghanshyam Trivedi Discharging Clinician: Jessie Meneses Patient Disposition: SNF Activity: as tolerated Diet: heart healthy Discharge Instructions: Patient to follow discharge care instruction from his surgeon and follow up as scheduled, patient to follow up with his primary care provider as soon as possible. Patient Instructions: Antibiotic Form Patient Language: Kiswahili Stand Alone Forms: General Discharge Information Follow-up/Referrals: Tyron Hancock MD [Physician] - UNKNOWN,DOCTOR [Primary Care Provider] - Discharge Medications: New polyethylene glycol 3350 [Miralax] 17 gram Powder In Packet 17 g PO QAM Qty: 15 0RF sennosides-docusate sodium [Senokot-S] 8.6-50 mg Tablet 2 tab PO BID Qty: 30 0RF aspirin 81 mg Tablet,Delayed Release (Dr/Ec) 81 mg PO BID Qty: 30 0RF oxycodone-acetaminophen 5-325 mg Tablet 1 tablet PO Q4H PRN (Reason: Pain Rated 4-6) Qty: 10 0RF Continued benztropine 0.5 mg tablet 0.5 mg PO TID Patient Comments: Takes at 0700,1730,2100 venlafaxine 150 mg capsule,extended release 24hr 150 mg PO DAILY Patient Comments: Takes at 0700 hydroxyzine pamoate 50 mg capsule 50 mg PO TID calcium carbonate 600 mg calcium (1,500 mg) tablet 600 mg PO BID Patient Comments: Takes at 0700and 2100 divalproex 500 mg tablet extended release 24 hr 500 mg PO BID Patient Comments: Takes at 0700 and 2100 folic acid 1 mg tablet 1 mg PO DAILY Patient Comments: Takes at 0700 loratadine 10 mg tablet 10 mg PO DAILY Patient Comments: Takes at 0700 sodium chloride 1,000 mg tablet,soluble 1,000 mg PO BID Patient Comments: Takes at 0700,2100 cholecalciferol (vitamin D3) 25 mcg (1,000 unit) tablet 25 mcg PO DAILY Patient Comments: takes at 0700 Lumigan 0.01 % drops 1 drp EACH EYE HS lurasidone 120 mg tablet 120 mg PO DAILY Patient Comments: Takes at 0700 ibuprofen 600 mg tablet 600 mg PO Q6H PRN (Reason: fever or pain) Qty: 30 0RF docusate sodium 100 mg capsule 100 mg PO 0700,2100 risperidone 4 mg tablet 4 mg PO 0700,2100 acetaminophen 325 mg tablet 650 mg PO Q4H PRN (Reason: fever or pain) alum-mag hydroxide-simeth [Mylanta Maximum Strength] 400-400-40 mg/5 mL suspension 30 ml PO Q4H PRN (Reason: indigestion) diphenhydramine HCl [Banophen] 25 mg capsule 25 mg PO Q6H PRN (Reason: allergy symptoms) bisacodyl 5 mg tablet 10 mg PO DAILY PRN (Reason: constipation) guaifenesin [Chest Congestion Relief] 100 mg/5 mL liquid 200 mg PO Q4H PRN (Reason: cough) ibuprofen [IBU] 600 mg tablet 600 mg PO Q6H PRN (Reason: fever or pain) bismuth subsalicylate [Diarrhea Relief (bismuth subs)] 262 mg/15 mL suspension 524 mg PO QID PRN (Reason: diarrhea) valacyclovir 1 gram tablet 1,000 mg PO Q12H Date of admission: 11/26/24 13:36 Primary Care Provider: UNKNOWN,DOCTOR Admitting Provider: Herbie Kerr Attending physician on admission: Jessie Meneses Condition: Stable
--- NOTE | 2024-12-03 11:00 | PC.NURSE ---
Telephone report given to Christina [facility] & auto leasing manager.
[2024-12-03 14:08] LABS: Albumin, U 33.2 % (.); Alpha-1-Globulin, U 4.3 % (.); Alpha-2-Globulin, U 21.3 % (.); Beta Globulin, U 22.9 % (.); Gamma Globulin, U 18.3 % (.)
== END 2024-12-03 12:15 | DRG 481 ==
LOC: ANHED 11:44 → ANH3MEDSUR 14:34
PROVIDERS: Anesthesiology; Internal Medicine Nephrology; Orthopaedic Surgery; Student in an Organized Health Care Education/Training Program; Admitting Provider Internal Medicine; Emergency Provider Nurse Practitioner Family; Visit Provider Family Medicine
PROC: 0QH734Z Insertion of Internal Fixation Device into Left Upper Femur, Percutaneous Approach (ICD-10-PCS; principal; 2024-11-29 12:30)
DX: S72.035A Nondisplaced midcervical fracture of left femur, initial encounter for closed fracture (principal); E87.1 Hypo-osmolality and hyponatremia; F84.0 Autistic disorder; W18.30XA Fall on same level, unspecified, initial encounter; F31.9 Bipolar disorder, unspecified; H40.9 Unspecified glaucoma; M47.812 Spondylosis without myelopathy or radiculopathy, cervical region; Z90.49 Acquired absence of other specified parts of digestive tract; Z88.0 Allergy status to penicillin; Z79.82 Long term (current) use of aspirin
CPT/HCPCS: 36415; 70450; 71045; 72125; 73502; 80048; 80053; 82533; 82570; 83735; 83930; 83935; 84100; 84156; 84166; 84295; 84300; 84443; 85025; 85027; 96374; 97110; 97162; 97165; 97530; 99199; 99285; A9270; C1713; C1769; J0690; J0834; J1171; J2312; J2405; J2704; J3010; J7030; J7120

== ENCOUNTER 2025-05-07 20:07 | Emergency (ER) | payer OTHER, SELFPAY ==
--- NOTE | ~2025-05-07 | CT_ITS ---
EXAMINATION: CT cervical spine wo con DATE: 05/07/2025 21:19 INDICATION: Status post fall. Neck pain. TECHNIQUE: Computed tomography (CT) of the cervical spine was performed without intravenous contrast. The dose-length product was 422 mGy-cm. COMPARISON: CT dated 11/26/2024 FINDINGS: Normal cervical lordosis. Mild superior endplate compression deformity of L2 appears chronic. Odontoid process is normal. Craniovertebral junction within normal limits. No acute fracture or traumatic malalignment. No evidence for perched facet. Spinous processes are normal. There is mild multilevel uncinate degenerative change. There is apical pleural thickening/scarring. Mild emphysema. No significant paraspinal soft tissue abnormality. IMPRESSION: 1. No acute abnormality of the cervical spine. Reviewed, dictated and finalized at location O. PROCESSING SUPERVISOR
--- NOTE | ~2025-05-07 | CT_ITS ---
EXAMINATION: CT brain wo con DATE: 05/07/2025 21:19 INDICATION: Status post fall TECHNIQUE: Computed tomography (CT) of the head was performed without intravenous contrast. The dose-length product was 681.00 mGy-cm. Automated exposure control and iterative reconstruction technique were employed. COMPARISON: CT dated 11/26/2024 FINDINGS: Generalized atrophy. There are scattered mild periventricular and subcortical white matter changes, most likely related to small vessel ischemic disease (microangiopathy). No ventriculomegaly or midline shift. Paranasal sinuses and mastoids are pneumatized. No acute infarction, hemorrhage, mass or mass effect. IMPRESSION: 1. No acute intracranial abnormality. Reviewed, dictated and finalized at location O. Y TELEGRAPHER
--- NOTE | ~2025-05-07 | XR_ITS ---
XR shoulder RT min 2V 05/07/2025 21:12 INDICATION: Right shoulder pain after fall PROCEDURE: 4 views right shoulder COMPARISON: No prior studies for comparison. FINDINGS: Fracture, dislocation or subluxation is not identified. The soft tissues appear within normal limits. No foreign bodies are identified. IMPRESSION: 1: NO ACUTE BONE OR JOINT ABNORMALITY IDENTIFIED. Reviewed, dictated and finalized at location O. E ASSEMBLER AND SWAGER
[2025-05-07 20:52] VITALS: BP 141/75; PULSE 74; RESP 16; TEMP 36.7; O2SAT 100
[2025-05-08 00:59] VITALS: BP 158/89; PULSE 76; RESP 14; TEMP 36.7; O2SAT 100
[2025-05-08] MEDS: ACETAMINOPHEN 500 MG TABLET 1000 MG PO (01:05)
--- NOTE | 2025-05-08 01:18 | ED.GENADULT ---
HPI - General Adult General Chief complaint: Fall Stated complaint: fall Time Seen by Provider: 05/08/25 00:31 History of Present Illness HPI narrative: 59-year-old male presenting [facility] a [facility] his shelter. long term staff is present reporting the fall was witnessed. She states he fell backward down two or three steps landing on his back. Patient denies hitting his head, loss consciousness, nausea/vomiting, dizziness/vision changes. He is not on blood thinners. Related Data Home Medications ?Medication ?Instructions ?Recorded ?Confirmed ?Last Taken ?Type benztropine 0.5 mg tablet 0.5 mg PO TID 05/26/23 11/26/24 11/26/24 History bimatoprost 0.01 % eye drops 1 drp EACH EYE HS 05/26/23 11/26/24 11/25/24 History (Virgilio) calcium carbonate 600 mg PO BID 05/26/23 11/26/24 11/26/24 History cholecalciferol (vitamin D3) 25 25 mcg PO DAILY 05/26/23 11/26/24 11/26/24 History mcg (1,000 unit) tablet divalproex 500 mg tablet,extended 500 mg PO BID 05/26/23 11/26/24 11/26/24 History release 24 hr folic acid 1 mg tablet 1 mg PO DAILY 05/26/23 11/26/24 11/26/24 History hydroxyzine pamoate 50 mg capsule 50 mg PO TID 05/26/23 11/26/24 11/26/24 History loratadine 10 mg tablet 10 mg PO DAILY 05/26/23 11/26/24 11/26/24 History lurasidone 120 mg tablet 120 mg PO DAILY 05/26/23 11/26/24 11/26/24 History sodium chloride 1,000 mg soluble 1,000 mg PO BID 05/26/23 11/26/24 11/26/24 History tablet venlafaxine 150 mg 150 mg PO DAILY 05/26/23 11/26/24 11/26/24 History capsule,extended release 24 hr acetaminophen 325 mg tablet 650 mg PO Q4H PRN fever or pain 11/26/24 11/26/24 Unknown History aluminum-mag hydroxide-simethicone 30 ml PO Q4H PRN indigestion 11/26/24 11/26/24 Unknown History 400 mg-400 mg-40 mg/5 mL oral susp (Mylanta Maximum Strength) bisacodyl 5 mg tablet 10 mg PO DAILY PRN constipation 11/26/24 11/26/24 Unknown History bismuth subsalicylate 262 mg/15 mL 524 mg PO QID PRN diarrhea 11/26/24 11/26/24 Unknown History oral suspension (Diarrhea Relief (bismuth subsalicylate)) diphenhydramine HCl 25 mg capsule 25 mg PO Q6H PRN allergy symptoms 11/26/24 11/26/24 Unknown History (Banophen) docusate sodium 100 mg capsule 100 mg PO 0700,2100 11/26/24 11/26/24 11/26/24 History guaifenesin 100 mg/5 mL oral 200 mg PO Q4H PRN cough 11/26/24 11/26/24 Unknown History liquid (Chest Congestion Relief) ibuprofen 600 mg tablet (IBU) 600 mg PO Q6H PRN fever or pain 11/26/24 11/26/24 Unknown History risperidone 4 mg tablet 4 mg PO 0700,209911/26/24 11/26/24 11/26/24 History valacyclovir 1 gram tablet 1,000 mg PO Q12H 11/26/24 11/26/24 11/26/24 History Allergies Allergy/AdvReac Type Severity Reaction Status Date / Time Penicillins Allergy Unknown Unknown Verified 05/07/25 20:08 Review of Systems Review of Systems: All systems reviewed & are unremarkable except as noted in HPI and below PMFSH Past Medical History Medical History (Updated 05/08/25 @ 01:18 by KINZA Frias) Glaucoma Autism spectrum disorder Bipolar 1 disorder Surgical History Surgical History (Updated 11/26/24 @ 21:17 by Tarsha Velásquez APRN) History of appendectomy Family History Family History Mother Diabetes mellitus Social History Social History Smoking status: Current some day smoker Tobacco type: cigars Alcohol intake: never Substance use: never Lack of Transportation: No Lack of Food: Never True Current Housing: I Have Housing Concerned About Future Housing: Decline to Answer Difficulty Paying Gas/Electric Bills: Decline to Answer Difficulty Paying for Meds: Decline to Answer Currently Unemployed: Decline to Answer Education: High School Diploma/GED Difficulty w/ Childcare or Family Care: Decline to Answer Spiritual care concerns: No Exam Narrative: GENERAL: Well-appearing, well-nourished, and in no acute distress. HEAD: Normocephalic, atraumatic. EYES: PERRLA and EOMI. ENT: Nares clear, no rhinorrhea or epistaxis. Mucous membranes moist. Oropharynx without tonsillar hypertrophy exudate or other lesions. Bilateral TMs pearly ulloa non-bulging NECK: Supple. No adenopathy or masses. No carotid bruits or JVD CHEST: Clear to auscultation. No respiratory distress. No wheezes rales or rhonchi HEART: Regular rate and rhythm. No murmur heard. Normal peripheral pulses. ABDOMEN: Soft, nontender, nondistended, normal active bowel sounds. EXTREMITIES: Normal range of motion. No edema. SKIN: Warm, dry, no rash. NEURO: A&O X3. Speech clear. Follows commands. CN II-XII intact. Sensation grossly intact. Steady gait. No ataxic movements. Strength 5/5 in upper and lower extremities bilaterally. [id number]-dg-[id number] testing intact bilaterally. No pronator drift. PSYCH: Normal mood and affect Course Vital Signs Vital signs: Vital Signs Temperature 98.1 F 05/07/25 20:52 Pulse Rate 74 05/07/25 20:52 Respiratory Rate 16 05/07/25 20:52 Blood Pressure 141/75 H 05/07/25 20:52 Pulse Oximetry 100 05/07/25 20:52 Oxygen Delivery Room Air 05/07/25 20:52 Temperature 98.1 F 05/08/25 01:42 Pulse Rate 76 05/08/25 01:42 Respiratory Rate 16 05/08/25 01:42 Blood Pressure 158/89 H 05/08/25 01:42 Pulse Oximetry 100 05/08/25 01:42 Oxygen Delivery Room Air 05/07/25 20:52 [facility] MDM Narrative Medical decision making narrative: 59-year-old male presenting [facility] a fall at his shelter. long term staff is present reporting the fall was witnessed. She states he fell backward down two or three steps landing on his back. Patient denies hitting his head, loss consciousness, nausea/vomiting, dizziness/vision changes. He is not on blood thinners. Upon my initial assessment patient appears nontoxic with stable vitals. Neurological exam demonstrates no focal deficits. Patient ambulates well on his own. Imaging demonstrates no abnormalities. Administered Tylenol and recommended Tylenol outpatient as needed for pain. Patient is appropriate for outpatient treatment and follow-up. Given reasons to return. Differential Diagnosis Differential Diagnosis: Differential diagnostic considerations for fall injuries include syncope, concussion with loss of consciousness, concussion without loss of consciousness, vertebral fracture, extremity fracture/dislocation. Medical Records I have reviewed the following patient records and this information was taken into consideration when formulating the assessment and plan.: previous labs, previous ER visits, previous hospitalizations and previous clinic visits Imaging Data Attestation: I personally reviewed and interpreted this imaging study as follows: Radiologist's impression: ITS Impressions Shoulder X-Ray 05/07/25 21:14 IMPRESSION: 1: NO ACUTE BONE OR JOINT ABNORMALITY IDENTIFIED. Head CT 05/07/25 21:43 IMPRESSION: 1. No acute intracranial abnormality. Cervical Spine CT 05/07/25 21:47 IMPRESSION: 1. No acute abnormality of the cervical spine. Discharge Plan Discharge Clinical Impression: Fall, Back pain Patient Disposition: Home Condition: Stable Instructions: Back Pain (ED), Fall Prevention (ED) Additional Instructions: Return to the emergency department if you experience fever, chest pain, shortness of breath, abdominal pain with nausea and vomiting, weakness, numbness/tingling, or any other symptoms that are concerning to you. Take Tylenol as needed for pain. Follow up with primary care doctor. Patient Language: Albanian Prescriptions: No Action benztropine 0.5 mg tablet 0.5 mg PO TID Patient Comments: Takes at 0700,1730,2100 venlafaxine 150 mg capsule,extended release 24hr 150 mg PO DAILY Patient Comments: Takes at 0700 hydroxyzine pamoate 50 mg capsule 50 mg PO TID calcium carbonate 600 mg calcium (1,500 mg) tablet 600 mg PO BID Patient Comments: Takes at 0700and 2100 divalproex 500 mg tablet extended release 24 hr 500 mg PO BID Patient Comments: Takes at 0700 and 2100 folic acid 1 mg tablet 1 mg PO DAILY Patient Comments: Takes at 0700 loratadine 10 mg tablet 10 mg PO DAILY Patient Comments: Takes at 0700 sodium chloride 1,000 mg tablet,soluble 1,000 mg PO BID Patient Comments: Takes at 0700,2100 cholecalciferol (vitamin D3) 25 mcg (1,000 unit) tablet 25 mcg PO DAILY Patient Comments: takes at 0700 Lumigan 0.01 % drops 1 drp EACH EYE HS lurasidone 120 mg tablet 120 mg PO DAILY Patient Comments: Takes at 0700 ibuprofen 600 mg tablet 600 mg PO Q6H PRN (Reason: fever or pain) Qty: 30 0RF docusate sodium 100 mg capsule 100 mg PO 0700,2099 risperidone 4 mg tablet 4 mg PO 0700,2100 acetaminophen 325 mg tablet 650 mg PO Q4H PRN (Reason: fever or pain) alum-mag hydroxide-simeth [Mylanta Maximum Strength] 400-400-40 mg/5 mL suspension 30 ml PO Q4H PRN (Reason: indigestion) diphenhydramine HCl [Banophen] 25 mg capsule 25 mg PO Q6H PRN (Reason: allergy symptoms) bisacodyl 5 mg tablet 10 mg PO DAILY PRN (Reason: constipation) guaifenesin [Chest Congestion Relief] 100 mg/5 mL liquid 200 mg PO Q4H PRN (Reason: cough) ibuprofen [IBU] 600 mg tablet 600 mg PO Q6H PRN (Reason: fever or pain) bismuth subsalicylate [Diarrhea Relief (bismuth subs)] 262 mg/15 mL suspension 524 mg PO QID PRN (Reason: diarrhea) valacyclovir 1 gram tablet 1,000 mg PO Q12H polyethylene glycol 3350 [Miralax] 17 gram Powder In Packet 17 g PO QAM Qty: 15 0RF sennosides-docusate sodium [Senokot-S] 8.6-50 mg Tablet 2 tab PO BID Qty: 30 0RF aspirin 81 mg Tablet,Delayed Release (Dr/Ec) 81 mg PO BID Qty: 30 0RF oxycodone-acetaminophen 5-325 mg Tablet 1 tablet PO Q4H PRN (Reason: Pain Rated 4-6) Qty: 10 0RF Follow-up/Referrals: PHYSICIAN,SENIOR COBOL DEVELOPER [Primary Care Provider, Internal Medicine]
[2025-05-08 01:42] VITALS: BP 158/89; PULSE 76; RESP 16; TEMP 36.7; O2SAT 100
== END 2025-05-08 01:26 | disposition home or self-care (01) ==
DX: S29.9XXA Unspecified injury of thorax, initial encounter (principal); F84.0 Autistic disorder; F31.9 Bipolar disorder, unspecified; H40.9 Unspecified glaucoma; F17.290 Nicotine dependence, other tobacco product, uncomplicated; W10.9XXA Fall (on) (from) unspecified stairs and steps, initial encounter
CPT/HCPCS: 70450; 72125; 73030; 99284; A9270